=== PATIENT | female | born 1960 | race Caucasian/White ===

== ENCOUNTER 2017-07-08 23:05 | Emergency (ER) | payer OTHER ==
[2017-07-08] MEDS ORDERED: HYDROCODONE/APAP 7.5/325 MG TAB ONE (23:45)
[2017-07-09 00:03] LABS: Absolute Lymphocytes (CBC) 3.7 K/uL (0.7-4.9); Absolute Monocytes 0.5 K/uL (0.1-1.3); Absolute Neutrophil 5.2 K/uL (1.8-8.0); Eosinophils % 1.3 % (0-4.4); Hematocrit 44.8 % (36.0-45.0); Lymphocytes % 38.7 % (15.3-44.8); MCH 29.6 pg (27.0-35.0); MCV 89.7 fL (80-100); MPV 8.8 fL (7.6-11.3)
[2017-07-09 00:08] LABS: Protime INR 0.98
--- NOTE | 2017-07-09 00:15 | ER ---
Nurse's Notes [facility] Name: Abida Garza Age: 56 yrs Sex: Female : 1960 Arrival Date: 07/08/2017 Time: 23:08 Bed 5 Private MD: Diagnosis: Epistaxis Presentation: 07/08 23:17 Presenting complaint: Patient states: "Few hours ago about 4 I had a nose bleed. I ao called the nurse home line and they directed me how to stop the bleed. I lost a lot of blood and now I feel weak and dizzy.". Transition of care: patient was not received from another setting of care. No acute neurological deficit is noted. Pre-hospital glucose is not applicable to this patient. Onset of symptoms was July 08, 2017 at 19:00. Initial Sepsis Screen: Does the patient meet any 2 criteria? No. Patient's initial sepsis screen is negative. Does the patient have a suspected source of infection? No. Patient's initial sepsis screen is negative. Care prior to arrival: None. 23:17 Method Of Arrival: Ambulatory ao 23:17 Acuity: BALDO 3 ao Triage Assessment: 23:22 The onset of the patients symptoms was July 08, 2017 at 19:00. General: Appears in no ao apparent distress. comfortable, Behavior is calm, cooperative, appropriate for age. Pain: Denies pain. Neuro: Reports dizziness, weakness. EMERGENCY CARE TECH: 23:20 LMP N/A - Post-menopause ao Stroke Activation: Physician: Stroke Attending; Name: ; Notified At: ; Arrived At: Physician: Chief Stroke Resident; Name: ; Notified At: ; Arrived At: Physician: Stroke Resident; Name: ; Notified At: ; Arrived At: Physician: ED Attending; Name: ; Notified At: ; Arrived At: Physician: ED Resident; Name: ; Notified At: ; Arrived At: 23:17 No alert activated ao Historical: - Allergies: 23:22 Levaquin; ao 23:22 PENICILLINS; ao - Home Meds: 23:22 Cymbalta 60 mg Oral cpDR 2 caps once daily [Active]; gabapentin 600 mg Oral tab 1 tab ao every 6 hours [Active]; hydromorphone 4 mg Oral tab 1 tab three times a day [Active]; ProAir HFA inhalation [Active]; tizanidine 4 mg Oral tab 1 tab twice a day [Active]; Symbicort inhalation [Active]; - PMHx: 23:22 Asthma; chronic back pain; COPD; Depression; Sleep Apnea; ao - PSHx: 23:22 None; ao - Immunization history:: Adult Immunizations up to date. - Social history:: Smoking status: Patient/guardian denies using tobacco, Patient/guardian denies using alcohol, street drugs, Patient/guardian denies using alcohol, street drugs. - Family history:: not pertinent. Screenin:30 Abuse screen: Denies threats or abuse. Nutritional screening: No deficits noted. tl2 Tuberculosis screening: No symptoms or risk factors identified. Fall Risk None identified. Assessment: 23:30 General: Appears in no apparent distress. comfortable, Behavior is calm, cooperative, tl2 appropriate for age. Pain: Denies pain. Neuro: Level of Consciousness is awake, alert, obeys commands, Oriented to person, place, time, situation. Neuro: Reports headache. Cardiovascular: Denies chest pain. Respiratory: Airway is patent Respiratory effort is even, unlabored, Respiratory pattern is regular, symmetrical. GI: No signs and/or symptoms were reported involving the gastrointestinal system. : No signs and/or symptoms were reported regarding the genitourinary system. EENT: Reports nosebleed, started at 1830 and lasted about 3 hours. Nosebleed stopped ANGLE BENDER but pt stated she thought she should come in anyway. Derm: Skin is pink, warm \\T\\ dry. 23:49 Reassessment: Patient appears in no apparent distress at this time. Patient and/or tl2 family updated on plan of care and expected duration. Pain level reassessed. Patient is alert, oriented x 3, equal unlabored respirations, skin warm/dry/pink. pt requested pain medication for headache, notified, new orders see APR. 07/09 00:27 Reassessment: Patient appears in no apparent distress at this time. Patient and/or tl2 family updated on plan of care and expected duration. Pain level reassessed. Patient is alert, oriented x 3, equal unlabored respirations, skin warm/dry/pink. Pt verbalized understanding of discharge instructions, need for follow up and prescription usage Patient states feeling better. Vital Signs: 07/08 23:20 BP 156 / 85; Pulse 74; Resp 14; Temp 98.0(O); Pulse Ox 97% on R/A; Weight 102.06 kg ao (R); Height 5 ft. 4 in. (162.56 cm) (R); Pain 5/10; 07/09 00:27 BP 158 / 92; Pulse 73; Resp 18; Pulse Ox 97% on R/A; tl2 07/08 23:20 Body Mass Index 38.62 (102.06 kg, 162.56 cm) ao ED Course: 07/08 23:08 Patient arrived in ED. ds1 23:17 Juani Solis, RN is Primary Nurse. tl2 23:19 Chris Montes MD is Attending Physician. ma2 23:20 Triage completed. ao 23:20 Arm band placed on right wrist. Patient placed in an exam room, on a stretcher, on ao pulse oximetry, Patient notified of wait time. 23:30 Patient has correct armband on for positive identification. Bed in low position. Call tl2 light in reach. Side rails up X 1. 23:40 Inserted saline lock: 20 gauge in right antecubital area, using aseptic technique. tl2 Blood collected. 07/09 00:27 No provider procedures requiring assistance completed. tl2 00:28 IV discontinued, intact, bleeding controlled, No redness/swelling at site. Pressure tl2 dressing applied. Administered Medications: 07/08 23:50 Drug: [place] (7.5 mg-325 mg) 1 tabs Route: PO; tl2 07/09 00:29 Follow up: Response: No adverse reaction; Pain is decreased tl2 Outcome: 00:14 Discharge ordered by . ma2 00:28 Discharged to home ambulatory, with family. tl2 00:28 Condition: stable 00:28 Discharge instructions given to patient, Instructed on discharge instructions, follow up and referral plans. medication usage, Demonstrated understanding of instructions, follow-up care, medications, Prescriptions given X 1. 00:29 Patient left the ED. tl2 Signatures: Tonia Kulkarni ds1 Jasper Perales RN RN ao Juani Solis RN RN tl2 Chris Montes MD MD nmJessica
--- NOTE | 2017-07-09 00:15 | EDPHYS ---
Physician Documentation [facility] Name: Abida Garza Age: 56 yrs Sex: Female : 1960 Arrival Date: 07/08/2017 Time: 23:08 Bed 5 Private MD: ED Physician Chris Montes HPI: 07/08 23:25 This 56 yrs old Female presents to ER via Ambulatory with complaints of Nose ma2 Bleed, Weakness, Dizziness. 23:25 The patient presents with a nose bleed, that is apparently anterior. Onset: The ma2 symptoms/episode began/occurred gradually, 3 hour(s) ago. Associated signs and symptoms: The patient has no apparent associated signs or symptoms, Pertinent positives: bleeding, Pertinent negatives: chest pain, ear ache, lightheadedness, rhinorrhea, shortness of breath. Severity of symptoms: At their worst the symptoms were mild in the emergency department the symptoms have resolved. The patient has experienced a previous episode, approximately 7 years ago. 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 - Social history:: Smoking status: Patient/guardian denies using tobacco, Patient/guardian denies using alcohol, street drugs, Patient/guardian denies using alcohol, street drugs. - Family history:: not pertinent. ROS: 23:25 All other systems are negative. ma2 07/09 00:15 ENT: Negative for injury, pain, and discharge. ma2 Exam: 07/08 23:25 Constitutional: This is a well developed, well nourished patient who is awake, alert, ma2 and in no acute distress. Head/Face: Normocephalic, atraumatic. Chest/axilla: Normal chest wall appearance and motion. Nontender with no deformity. No lesions are appreciated. Cardiovascular: Regular rate and rhythm with a normal S1 and S2. No gallops, murmurs, or rubs. Normal PMI, no JVD. No pulse deficits. Respiratory: Lungs have equal breath sounds bilaterally, clear to auscultation and percussion. No rales, rhonchi or wheezes noted. No increased work of breathing, no retractions or nasal flaring. Neuro: Awake and alert, GCS 15, oriented to person, place, time, and situation. Cranial nerves II-XII grossly intact. Motor strength 5/5 in all extremities. Sensory grossly intact. Cerebellar exam normal. Normal gait. Psych: Awake, alert, with orientation to person, place and time. Behavior, mood, and affect are within normal limits. Vital Signs: 23:20 BP 156 / 85; Pulse 74; Resp 14; Temp 98.0(O); Pulse Ox 97% on R/A; Weight 102.06 kg ao (R); Height 5 ft. 4 in. (162.56 cm) (R); Pain 5/10; 07/09 00:27 BP 158 / 92; Pulse 73; Resp 18; Pulse Ox 97% on R/A; tl2 07/08 23:20 Body Mass Index 38.62 (102.06 kg, 162.56 cm) ao MDM: 07/08 23:20 Patient medically screened. ma2 23:25 Differential diagnosis: trauma, sinusitis, epistaxis r/t trauma, spontaneous epistaxis. ia2 07/09 00:14 Data reviewed: vital signs, nurses notes, EMS record, lab test result(s), EKG, ma2 radiologic studies. Counseling: I had a detailed discussion with the patient and/or guardian regarding: the historical points, exam findings, and any diagnostic results supporting the discharge/admit diagnosis, the presence of at least one elevated blood pressure reading (>120/80) during this emergency department visit, the need for outpatient follow up. Response to treatment: the patient's symptoms have resolved after treatment. 07/08 23:21 Order name: PT-INR; Complete Time: 00:13 ma2 07/08 23:21 Order name: Ptt, Activated; Complete Time: 00:13 ma2 07/08 23:21 Order name: CBC with Diff; Complete Time: 00: ma2 Administered Medications: 07/08 23:50 Drug: [place] (7.5 mg-325 mg) 1 tabs Route: PO; tl2 07/09 00:29 Follow up: Response: No adverse reaction; Pain is decreased tl2 Disposition: 07/09/17 00:14 Discharged to Home. Impression: Epistaxis. - Condition is Stable. - Discharge Instructions: Nosebleed, [id number]. - Prescriptions for Tylenol- Codeine #3 300-30 mg Oral Tablet - take 2 tablet by ORAL route every 6 hours As needed; 30 tablet. - Medication Reconciliation Form, Thank You Letter, Antibiotic Education, Prescription Opioid Use form. - Follow up: Private Physician; When: Tomorrow; Reason: If symptoms return. - Problem is new. - Symptoms are resolved. Signatures: Dispatcher [employer] EDOK Jasper Perales RN RN ao Knox, Taylor, RN RN tl2 Chris Montes MD MD ma2 Corrections: (The following items were deleted from the chart) 00:29 00:14 07/09/2017 00:14 Discharged to Home. Impression: Epistaxis. Condition is Stable. tl2 Forms are Medication Reconciliation Form, Thank You Letter, Antibiotic Education, Prescription Opioid Use. Follow up: Private Physician; When: Tomorrow; Reason: If symptoms return. Problem is new. Symptoms are resolved. ma2
[2017-07-09 00:43] VITALS: TEMP 98; O2SAT 97
[2017-07-09 00:44] VITALS: BP 158/92
== END 2017-07-09 00:29 | disposition home or self-care (01) ==
LOC: ER 23:05
DX: R04.0 Epistaxis (principal); J44.9 Chronic obstructive pulmonary disease, unspecified; F32.9 Major depressive disorder, single episode, unspecified; Z88.0 Allergy status to penicillin; Z88.1 Allergy status to other antibiotic agents
CPT/HCPCS: 36415; 85025; 85610; 85730; 99284

== ENCOUNTER 2017-09-19 19:18 | Emergency (ER) | payer OTHER ==
[2017-09-19] MEDS ORDERED: MEPERIDINE HCL 50 MG/ML AMP ONE (19:41)
[2017-09-19] MEDS ORDERED: MEPERIDINE HCL 25 MG/0.5 ML ONE (19:41)
[2017-09-19] MEDS ORDERED: ONDANSETRON 4 MG/2 ML VIAL ONE (19:41)
--- NOTE | 2017-09-19 20:20 | RAD REPORT ---
EXAM DESCRIPTION: CT - Spine Lumbar Wo Con - 09/19/2017 8:00 pm CLINICAL HISTORY: Back pain radiating to the left lower extremity COMPARISON: None. TECHNIQUE: Thin section axial imaging of the lumbar spine was performed. Sagittal and coronal recon struction images were generated and reviewed. All CT scans are performed using dose optimization technique as appropriate and may include automated exposure control or mA/KV adjustment according to patient size. FINDINGS: Lumbar bodies are normal in height. No compression fracture present and no lytic, scleroti c or expansile destructive process. Approximately 15% wedge compression of the T12 body is present wi thout evidence for an acute fracture line. Acute compression fracture is doubtful. There is [address] retrolisthesis of L2 relative to L3. T12-L1, L1-2 and L2-3 significant disc space narrowing with degenerative gas in the disc space. No paraspinal mass. Central canal detail is significantly limited. Left central canal and foraminal disc bulge is evident on the left at T12-L1. Mild broad-based bulging of disc material is present at L1-2 and in the left central canal at L2-3. Mild circumferential bulge of disc material is present at L3-4 facet degenerat escobar changes are present throughout the lumbar spine. Significant central spinal stenosis is not ident ified. Significant multilevel facet joint degenerative change seen. IMPRESSION: No fracture or acute finding of the lumbar spine. Slight wedging of the T12 body is susp ected to be chronic. Extensive degenerative disc disease T12-L1, L1-2 and L2-3. Disc bulge changes are present. No significant degree of central spinal stenosis or critical foramina l encroachment. CT imaging is inherently limited. Disc and central canal findings can be further assessed with MR debra ging as warranted.
--- NOTE | 2017-09-19 21:15 | EDPHYS ---
Physician Documentation [facility] Name: Abida Garza Age: 56 yrs Sex: Female : 1960 Arrival Date: 09/19/2017 Time: 19:22 Bed 12 Private MD: Christopher Robbins T ED Physician Stone Wilkinson HPI: 09/19 19:36 This 56 yrs old Female presents to ER via Ambulatory with complaints of Back pkl Pain, Leg Pain. 19:36 The patient presents with pain that is acute. The symptoms are located in the low back. pkl Onset: The symptoms/episode began/occurred 6 day(s) ago. The pain radiates to the left leg. 19:38 Associated signs and symptoms: The patient has no apparent associated signs or pkl symptoms. Patient has H/O back pain. Has stimulator in back. 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 - Social history:: Smoking status: Patient/guardian denies using tobacco. - Ebola Screening: : No symptoms or risks identified at this time. ROS: 19:40 Eyes: Negative for injury, pain, redness, and discharge, ENT: Negative for injury, pkl pain, and discharge, Neck: Negative for injury, pain, and swelling, Cardiovascular: Negative for chest pain, palpitations, and edema, Respiratory: Negative for shortness of breath, cough, wheezing, and pleuritic chest pain, Abdomen/GI: Negative for abdominal pain, nausea, vomiting, diarrhea, and constipation. 19:40 Back: Positive for pain at rest, of the lower back. 19:40 : Negative for urinary symptoms. 19:40 MS/extremity: Negative for acute changes. 19:40 Skin: Negative for rash. 19:40 Neuro: Negative for altered mental status. Exam: 19:40 Head/Face: Normocephalic, atraumatic. Eyes: Pupils equal round and reactive to light, pkl extra-ocular motions intact. Lids and lashes normal. Conjunctiva and sclera are non-icteric and not injected. Cornea within normal limits. Periorbital areas with no swelling, redness, or edema. ENT: Nares patent. No nasal discharge, no septal abnormalities noted. Tympanic membranes are normal and external auditory canals are clear. Oropharynx with no redness, swelling, or masses, exudates, or evidence of obstruction, uvula midline. Mucous membranes moist. Neck: Trachea midline, no thyromegaly or masses palpated, and no cervical lymphadenopathy. Supple, full range of motion without nuchal rigidity, or vertebral point tenderness. No Meningismus. Chest/axilla: Normal chest wall appearance and motion. Nontender with no deformity. No lesions are appreciated. Cardiovascular: Regular rate and rhythm with a normal S1 and S2. No gallops, murmurs, or rubs. Normal PMI, no JVD. No pulse deficits. Respiratory: Lungs have equal breath sounds bilaterally, clear to auscultation and percussion. No rales, rhonchi or wheezes noted. No increased work of breathing, no retractions or nasal flaring. Abdomen/GI: Soft, non-tender, with normal bowel sounds. No distension or tympany. No guarding or rebound. No evidence of tenderness throughout. 19:40 Back: pain, that is moderate, of the lower back, Straight leg raises: left lower extremity illicits pain, at 30 degrees. 19:40 : Exam negative for acute changes. 19:40 Musculoskeletal/extremity: Exam is negative for acute changes. 19:40 Skin: Exam negative for rash. 19:40 Neuro: Orientation: is normal, Mentation: is normal, Cranial nerves: grossly normal, Motor: is normal. Vital Signs: 19:26 BP 140 / 69; Pulse 81; Resp 18; Temp 98.5(O); Pulse Ox 95% on R/A; Weight 99.79 kg (R); ak1 Height 5 ft. 4 in. (162.56 cm) (R); Pain 10/10; 21:20 BP 137 / 69; Pulse 64; Resp 18; Pulse Ox 100% on R/A; mb3 19:26 Body Mass Index 37.76 (99.79 kg, 162.56 cm) ak1 MDM: 19:29 Patient medically screened. pkl 21:14 Data reviewed: vital signs, nurses notes, radiologic studies, CT scan. pkl 09/19 19:35 Order name: CT Lumbar Spine Wo Con; Complete Time: 21:11 pkl Administered Medications: 19:38 CANCELLED (Patient Refused): Zofran 4 mg IVP once; over 2 minutes pkl 19:45 Drug: Demerol 75 mg Route: IM; Site: left gluteus; mb3 21:06 Follow up: Response: No adverse reaction mb3 19:45 Drug: Zofran 4 mg Route: IM; Site: right gluteus; mb3 21:06 Follow up: Response: No adverse reaction mb3 Disposition: 09/19/17 21:15 Discharged to Home. Impression: Acute back pain. Exrensive degenerative arthritis.. - Condition is Stable. - Prescriptions for Cyclobenzaprine 10 mg Oral Tablet - take 1 tablet by ORAL route 2 times per day As needed; 30 tablet. Diclofenac Sodium 75 mg Oral Tablet Sustained Release - take 1 tablet by ORAL route 2 times per day; 30 tablet. - Medication Reconciliation Form, Thank You Letter, Antibiotic Education, Prescription Opioid Use form. - Follow up: Private Physician; When: 1 - 2 days; Reason: Re-evaluation by your physician. - Problem is new. - Symptoms have improved. Signatures: Dispatcher [employer] EDMS Stone Wilkinson MD MD l Jadyn Hernandez RN RN ak1 Hemal Dhaliwal RN RN mb3 Corrections: (The following items were deleted from the chart) 19:38 19:34 Zofran 4 mg IVP once; over 2 minutes ordered. pk pk 21:28 21:15 09/19/2017 21:15 Discharged to Home. Impression: Acute back pain. Exrensive mb3 degenerative arthritis.. Condition is Stable. Forms are Medication Reconciliation Form, Thank You Letter, Antibiotic Education, Prescription Opioid Use. Follow up: Private Physician; When: 1 - 2 days; Reason: Re-evaluation by your physician. Problem is new. Symptoms have improved. pkl
--- NOTE | 2017-09-19 21:15 | ER ---
Nurse's Notes [facility] Name: Abida Garza Age: 56 yrs Sex: Female : 1960 Arrival Date: 09/19/2017 Time: 19:22 Bed 12 Private MD: Christopher Robbins T Diagnosis: Acute back pain. Exrensive degenerative arthritis. 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 Transition of care: patient was not received from another setting of care. Onset of symptoms is unknown. Risk Assessment: Do you want to hurt yourself or someone else? Patient reports no desire to harm self or others. Care prior to arrival: None. 19:27 Acuity: BALDO 4 ak1 19:27 Method Of Arrival: Ambulatory ak1 19:50 Initial Sepsis Screen: Does the patient meet any 2 criteria? No. Patient's initial mb3 sepsis screen is negative. Does the patient have a suspected source of infection? No. Patient's initial sepsis screen is negative. 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 - Social history:: Smoking status: Patient/guardian denies using tobacco. - Ebola Screening: : No symptoms or risks identified at this time. Screenin:50 Abuse screen: Denies threats or abuse. Nutritional screening: No deficits noted. mb3 Tuberculosis screening: No symptoms or risk factors identified. Fall Risk None identified. Assessment: 19:47 General: Appears in no apparent distress. comfortable, Behavior is calm, cooperative, mb3 appropriate for age. Pain: Complains of pain in lumbar area, left low back and right low back. Pain: Pain radiates to right leg and left leg. Neuro: No deficits noted. Level of Consciousness is awake, alert, obeys commands, Oriented to person, place, time, situation, Appropriate for age. Cardiovascular: No deficits noted. Respiratory: No deficits noted. GI: No deficits noted. : No deficits noted. Musculoskeletal: Capillary refill < 3 seconds, Range of motion: limited in left hip and right hip. Vital Signs: 19:26 BP 140 / 69; Pulse 81; Resp 18; Temp 98.5(O); Pulse Ox 95% on R/A; Weight 99.79 kg (R); ak1 Height 5 ft. 4 in. (162.56 cm) (R); Pain 10/10; 21:20 BP 137 / 69; Pulse 64; Resp 18; Pulse Ox 100% on R/A; mb3 19:26 Body Mass Index 37.76 (99.79 kg, 162.56 cm) ak1 ED Course: 19:22 Patient arrived in ED. es 19:22 Christopher Robbins MD is Private Physician. es 19:26 Arm band placed on Patient placed in an exam room, Patient notified of wait time. ak1 19:28 Triage completed. ak1 19:29 Stone Wilkinson MD is Attending Physician. pkl 19:46 Hemal Dhaliwal, TITA is Primary Nurse. mb3 19:[address] vm2 19:50 No provider procedures requiring assistance completed. Patient did not have IV access mb3 during this emergency room visit. 19:51 Patient has correct armband on for positive identification. mb3 19:59 CT completed. Patient tolerated procedure well. Patient moved back from CT. vm2 20:00 CT Lumbar Spine Wo Con In Process Unspecified. EDMS Administered Medications: 19:38 CANCELLED (Patient Refused): Zofran 4 mg IVP once; over 2 minutes pkl 19:45 Drug: Demerol 75 mg Route: IM; Site: left gluteus; mb3 21:06 Follow up: Response: No adverse reaction mb3 19:45 Drug: Zofran 4 mg Route: IM; Site: right gluteus; mb3 21:06 Follow up: Response: No adverse reaction mb3 Outcome: 21:15 Discharge ordered by . kiley 21:23 Discharged to home ambulatory, with family. mb3 21:23 Condition: stable 21:23 Discharge instructions given to patient, family, Instructed on discharge instructions, follow up and referral plans. medication usage, Demonstrated understanding of instructions, follow-up care, medications, Prescriptions given X 2. 21:28 Patient left the ED. mb3 Signatures: Dispatcher [employer] Stone Hinds MD MD pkl Salyer, Edna es Krenek, Amber, RN RN [email or web address] Dipti Reynaga 2 Hemal Dhaliwal, RN RN mb3
[2017-09-19 21:39] VITALS: TEMP 98.5
[2017-09-19 21:40] VITALS: BP 137/69; O2SAT 100
== END 2017-09-19 21:28 | disposition home or self-care (01) ==
LOC: ER 19:18
DX: M54.89 Other dorsalgia (principal); M19.90 Unspecified osteoarthritis, unspecified site; J44.9 Chronic obstructive pulmonary disease, unspecified; J45.909 Unspecified asthma, uncomplicated; Z88.3 Allergy status to other anti-infective agents; Z88.0 Allergy status to penicillin
CPT/HCPCS: 72131; 96372; 99284; J2175 ×2; J2405

== ENCOUNTER 2018-01-14 10:24 | Emergency (ER) | payer OTHER ==
--- NOTE | 2018-01-14 11:17 | RAD REPORT ---
EXAM DESCRIPTION: CT - Head Brain Wo Cont - 01/14/2018 11:08 am CLINICAL HISTORY: HEADACHE Hypertension COMPARISON: No comparisons TECHNIQUE: All CT scans are performed using dose optimization technique as appropriate and may inclu de automated exposure control or mA/KV adjustment according to patient size. FINDINGS: No intracranial hemorrhage, hydrocephalus or extra-axial fluid collection.No areas of brai n edema or evidence of midline shift. The paranasal sinuses and mastoids are clear. The calvarium is intact. IMPRESSION: No acute intracranial abnormality.
[2018-01-14 11:40] LABS: Absolute Lymphocytes (CBC) 2.3 K/uL (0.7-4.9); Absolute Monocytes 0.4 K/uL (0.1-1.3); Absolute Neutrophil 3.2 K/uL (1.8-8.0); Basophils % 0.3 % (0-1.3); Hematocrit 44.9 % (36.0-45.0); Lymphocytes % 39.3 % (15.3-44.8); MCH 30.1 pg (27.0-35.0); MCV 91.8 fL (80-100); MPV 9.3 fL (7.6-11.3); Monocytes % 6.1 % (3.3-12.3); RBC Red Blood Cell Count 4.88 M/uL (3.86-4.86)
[2018-01-14] MEDS ORDERED: IBUPROFEN 400 MG TAB ONE (11:48)
[2018-01-14 11:58] LABS: BUN Blood Urea Nitrogen 13 mg/dL (7-18); Bicarbonate 29 mmol/L (21-32); Glucose Level 116 mg/dL (74-106); Magnesium 2.3 mg/dL (1.8-2.4); NT PRO-BNP 31 pg/mL (<125); Potassium 3.7 mmol/L (3.5-5.1); Sodium Level 141 mmol/L (136-145); Troponin (Emerg Dept Use Only) < 0.02 ng/mL (0.0-0.045)
--- NOTE | 2018-01-14 12:16 | ER ---
Nurse's Notes [facility] Name: Abida Garza Age: 57 yrs Sex: Female : 1960 Arrival Date: 01/14/2018 Time: 10:27 Bed 20 Private MD: Christopher Robbins T Diagnosis: Essential (primary) hypertension Presentation: 01/14 10:30 Presenting complaint: Patient states: I have been having headaches every day and I went la1 to the Dr and my BP was 150s/120s. Im not on any meds for my bp. Transition of care: patient was not received from another setting of care. Onset of symptoms was January 14, 2018. Risk Assessment: Do you want to hurt yourself or someone else? Patient reports no desire to harm self or others. Initial Sepsis Screen: Does the patient meet any 2 criteria? No. Patient's initial sepsis screen is negative. Does the patient have a suspected source of infection? No. Patient's initial sepsis screen is negative. Care prior to arrival: None. 10:30 Method Of Arrival: Ambulatory la1 10:30 Acuity: BALDO 3 la1 Historical: - Allergies: 10:30 Levaquin; la1 10:30 PENICILLINS; la1 - PMHx: 10:30 Asthma; chronic back pain; COPD; Depression; Sleep Apnea; la1 - Immunization history:: Adult Immunizations up to date. - Social history:: Smoking status: Patient/guardian denies using tobacco. - Ebola Screening: : No symptoms or risks identified at this time. Screenin:25 Abuse screen: Denies threats or abuse. Nutritional screening: No deficits noted. em Tuberculosis screening: No symptoms or risk factors identified. Fall Risk None identified. Assessment: 11:14 General: Appears in no apparent distress. comfortable, Behavior is calm, cooperative. em Pain: Complains of pain in chest and head Pain currently is 8 out of 10 on a pain scale. Quality of pain is described as pressure, Pain began 1 day ago. Neuro: Level of Consciousness is awake, alert, obeys commands, Oriented to person, place, time, situation, Moves all extremities. Gait is steady, Speech is normal, Facial symmetry appears normal, Reports dizziness, headache. Cardiovascular: Reports chest pain, diaphoresis, Heart tones S1 S2 present Capillary refill < 3 seconds Patient's skin is warm and dry. Respiratory: Airway is patent Respiratory effort is even, unlabored, Respiratory pattern is regular, symmetrical, Breath sounds are clear bilaterally. GI: No signs and/or symptoms were reported involving the gastrointestinal system. : No signs and/or symptoms were reported regarding the genitourinary system. EENT: No signs and/or symptoms were reported regarding the EENT system. Derm: Skin is intact, Skin is pink, warm \\T\\ dry. Musculoskeletal: Capillary refill < 3 seconds, Range of motion: intact in all extremities. 11:20 General: The previous assessment is accurate, call light remains within reach. . ss 11:38 Reassessment: Patient appears in no apparent distress at this time. Patient and/or em family updated on plan of care and expected duration. Pain level reassessed. Patient is alert, oriented x 3, equal unlabored respirations, skin warm/dry/pink. reports headache, states, "I have chronic migraines, I have not followed up with my doctor" provider notified, new medication orders received. 12:34 Reassessment: Patient appears in no apparent distress at this time. Patient and/or em family updated on plan of care and expected duration. Pain level reassessed. Patient is alert, oriented x 3, equal unlabored respirations, skin warm/dry/pink. headache improved, rates pain 6/10, provider notified. Vital Signs: 10:31 BP 145 / 76; Pulse 86; Resp 16; Temp 97.3; Pulse Ox 98% on R/A; Weight 89.36 kg; Height la1 5 ft. 4 in. (162.56 cm); 11:31 BP 132 / 87; Pulse 68; Resp 14; Pulse Ox 99% on R/A; Pain 8/10; em 12:11 BP 119 / 60; Pulse 73; Resp 19; Pulse Ox 97% on R/A; em 12:35 BP 128 / 65; Pulse 80; Resp 18; Pulse Ox 95% on R/A; Pain 6/10; em 10:31 Body Mass Index 33.81 (89.36 kg, 162.56 cm) la1 ED Course: 10:27 Patient arrived in ED. mr 10:27 Christopher Robbins MD is Private Physician. mr 10:31 Triage completed. la1 10:31 Arm band placed on left wrist. la1 10:35 Drake Powers LVN is Primary Nurse. em 10:36 Aarti López FNP-C is [facility]. kb 10:36 Jeremy Mendez MD is Attending Physician. kb 10:[address] via wheelchair. cw1 11:06 CT completed. Patient moved back from CT. cw1 11:07 CT Head Brain wo Cont In Process Unspecified. EDMS 11:18 EKG done, by ED staff, reviewed by Aarti CHAIDEZ. 3 11:24 Initial lab(s) drawn, by me, sent to lab. Inserted saline lock: 20 gauge in right em antecubital area, using aseptic technique. Blood collected. 11:25 Patient has correct armband on for positive identification. Bed in low position. Call em light in reach. Adult w/ patient. 12:16 Christopher Robbins MD is Referral Physician. kb 12:36 No provider procedures requiring assistance completed. IV discontinued, intact, em bleeding controlled, No redness/swelling at site. Pressure dressing applied. Administered Medications: 11:44 Drug: Ibuprofen 800 mg Route: PO; em 12:37 Follow up: Response: No adverse reaction; Pain is decreased em Outcome: 12:16 Discharge ordered by MD. kb 12:36 Discharged to home ambulatory. em 12:36 Condition: good 12:36 Discharge instructions given to patient, Instructed on discharge instructions, follow up and referral plans. Demonstrated understanding of instructions, follow-up care. 12:37 Patient left the ED. em Signatures: Dispatcher [employer] EDNJ Aarti López FNP-C FNP-Marichuy Bethany Jones mr Drake Powers LVN [place] em Ashly Ba, Analisa Yanes RN 1 Faheem Christopher RN RN [facility] Ivette Flowernna formerly [facility]
--- NOTE | 2018-01-14 12:16 | EDPHYS ---
Physician Documentation [facility] Name: Abida Garza Age: 57 yrs Sex: Female : 1960 Arrival Date: 01/14/2018 Time: 10:27 Bed 20 Private MD: Christopher Robbins T ED Physician Jeremy Mendez HPI: 01/14 10:46 This 57 yrs old Female presents to ER via Ambulatory with complaints of High kb Blood Pressure. 10:46 The patient has elevated blood pressure and discovered this at home, with a home kb device. Onset: The symptoms/episode began/occurred 2 week(s) ago. Associated signs and symptoms: Pertinent positives: headache, nausea, Pertinent negatives: chest pain, dizziness, dyspnea, lightheadedness, visual changes, vomiting, weakness. Severity of symptoms: At its worst the blood pressure was 160 mm Hg, in the emergency department the blood pressure is improved, 145 mm Hg. The patient has not experienced similar symptoms in the past. The patient has been recently seen by a physician:. Pt reports she has had a headache for 2 weeks. Went to pain management on Monday and her bp was 150/120. Was told to keep an eye on it. Today bp was 147/120 so she came to get checked. Reports headache and nausea. Denies chest pain. . Historical: - Allergies: 10:30 Levaquin; la1 10:30 PENICILLINS; la1 - PMHx: 10:30 Asthma; chronic back pain; COPD; Depression; Sleep Apnea; la1 - Immunization history:: Adult Immunizations up to date. - Social history:: Smoking status: Patient/guardian denies using tobacco. - Ebola Screening: : No symptoms or risks identified at this time. ROS: 10:46 Constitutional: Negative for fever, chills, and weight loss, Eyes: Negative for injury, kb pain, redness, and discharge, ENT: Negative for injury, pain, and discharge, Neck: Negative for injury, pain, and swelling, Cardiovascular: Negative for chest pain, palpitations, and edema, Respiratory: Negative for shortness of breath, cough, wheezing, and pleuritic chest pain, Abdomen/GI: Negative for abdominal pain, vomiting, diarrhea, and constipation. +nausea Back: Negative for injury and pain, : Negative for injury, bleeding, discharge, and swelling, MS/Extremity: Negative for injury and deformity, Skin: Negative for injury, rash, and discoloration. 10:46 Neuro: Positive for headache. Exam: 10:46 Constitutional: This is a well developed, well nourished patient who is awake, alert, kb and in no acute distress. Head/Face: Normocephalic, atraumatic. Eyes: Pupils equal round and reactive to light, extra-ocular motions intact. Lids and lashes normal. Conjunctiva and sclera are non-icteric and not injected. Cornea within normal limits. Periorbital areas with no swelling, redness, or edema. ENT: Nares patent. No nasal discharge, no septal abnormalities noted. Tympanic membranes are normal and external auditory canals are clear. Oropharynx with no redness, swelling, or masses, exudates, or evidence of obstruction, uvula midline. Mucous membranes moist. Neck: Trachea midline, no thyromegaly or masses palpated, and no cervical lymphadenopathy. Supple, full range of motion without nuchal rigidity, or vertebral point tenderness. No Meningismus. Chest/axilla: Normal chest wall appearance and motion. Nontender with no deformity. No lesions are appreciated. Cardiovascular: Regular rate and rhythm with a normal S1 and S2. No gallops, murmurs, or rubs. Normal PMI, no JVD. No pulse deficits. Respiratory: Lungs have equal breath sounds bilaterally, clear to auscultation and percussion. No rales, rhonchi or wheezes noted. No increased work of breathing, no retractions or nasal flaring. Abdomen/GI: Soft, non-tender, with normal bowel sounds. No distension or tympany. No guarding or rebound. No evidence of tenderness throughout. Skin: Warm, dry with normal turgor. Normal color with no rashes, no lesions, and no evidence of cellulitis. MS/ Extremity: Pulses equal, no cyanosis. Neurovascular intact. Full, normal range of motion. Neuro: Awake and alert, GCS 15, oriented to person, place, time, and situation. Cranial nerves II-XII grossly intact. Motor strength 5/5 in all extremities. Sensory grossly intact. Cerebellar exam normal. Normal gait. Vital Signs: 10:31 BP 145 / 76; Pulse 86; Resp 16; Temp 97.3; Pulse Ox 98% on R/A; Weight 89.36 kg; Height la1 5 ft. 4 in. (162.56 cm); 11:31 BP 132 / 87; Pulse 68; Resp 14; Pulse Ox 99% on R/A; Pain 8/10; em 12:11 BP 119 / 60; Pulse 73; Resp 19; Pulse Ox 97% on R/A; em 12:35 BP 128 / 65; Pulse 80; Resp 18; Pulse Ox 95% on R/A; Pain 6/10; em 10:31 Body Mass Index 33.81 (89.36 kg, 162.56 cm) la1 MDM: 10:36 Patient medically screened. kb 10:46 Data reviewed: vital signs, nurses notes. Data interpreted: Pulse oximetry: on room air kb is 98 %. Interpretation: normal. 12:15 Counseling: I had a detailed discussion with the patient and/or guardian regarding: the kb historical points, exam findings, and any diagnostic results supporting the discharge/admit diagnosis, lab results, radiology results, the need for outpatient follow up, a family practitioner, to return to the emergency department if symptoms worsen or persist or if there are any questions or concerns that arise at home. 01/14 10:45 Order name: Basic Metabolic Panel; Complete Time: 12:15 kb 01/14 10:45 Order name: CBC with Diff; Complete Time: 11:48 kb 01/14 10:45 Order name: Magnesium; Complete Time: 12:15 kb 01/14 10:45 Order name: NT PRO-BNP; Complete Time: 12:15 kb 01/14 10:45 Order name: Troponin (emerg Dept Use Only); Complete Time: 12:15 kb 01/14 10:45 Order name: CT Head Brain wo Cont; Complete Time: 11:21 kb 01/14 10:45 Order name: EKG; Complete Time: 10:46 kb 01/14 10:45 Order name: EKG - Nurse/Tech; Complete Time: 11:19 kb 01/14 10:45 Order name: IV Saline Lock; Complete Time: 11:24 kb 01/14 10:45 Order name: Labs collected and sent; Complete Time: 11:24 kb 01/14 10:45 Order name: O2 Per Protocol; Complete Time: 11:24 kb 01/14 10:45 Order name: O2 Sat Monitoring; Complete Time: 11:24 kb Administered Medications: 11:44 Drug: Ibuprofen 800 mg Route: PO; em 12:37 Follow up: Response: No adverse reaction; Pain is decreased em Disposition: 01/15 11:11 Co-signature as Attending Physician, Jeremy Mendez MD. Disposition: 01/14/18 12:16 Discharged to Home. Impression: Essential (primary) hypertension. - Condition is Stable. - Discharge Instructions: Hypertension, [id number], Managing Your Hypertension. - Medication Reconciliation Form, Thank You Letter, Antibiotic Education, Prescription Opioid Use form. - Follow up: Emergency Department; When: As needed; Reason: Worsening of condition. Follow up: Christopher Robbins MD; When: 2 - 3 days; Reason: Recheck today's complaints, Continuance of care, Re-evaluation by your physician. Signatures: Dispatcher [employer] EDMS Aarti López, SENIOR PROGRAMMER-C SENIOR PROGRAMMER-Ckb Drake Powers, EASEMENT WORKER EASEMENT WORKER em Faheem Christopher RN RN la1 Jeremy Mendez MD MD Corrections: (The following items were deleted from the chart) 01/14 10:48 10:46 Constitutional: Negative for fever, chills, and weight loss, Eyes: Negative for kb injury, pain, redness, and discharge, ENT: Negative for injury, pain, and discharge, Neck: Negative for injury, pain, and swelling, Cardiovascular: Negative for chest pain, palpitations, and edema, Respiratory: Negative for shortness of breath, cough, wheezing, and pleuritic chest pain, Abdomen/GI: Negative for abdominal pain, nausea, vomiting, diarrhea, and constipation, Back: Negative for injury and pain, : Negative for injury, bleeding, discharge, and swelling, MS/Extremity: Negative for injury and deformity, Skin: Negative for injury, rash, and discoloration, kb 12:37 12:16 01/14/2018 12:16 Discharged to Home. Impression: Essential (primary) em hypertension. Condition is Stable. Forms are Medication Reconciliation Form, Thank You Letter, Antibiotic Education, Prescription Opioid Use. Follow up: Emergency Department; When: As needed; Reason: Worsening of condition. Follow up: Christopher Robbins; When: 2 - 3 days; Reason: Recheck today's complaints, Continuance of care, Re-evaluation by your physician. kb
[2018-01-14 13:11] VITALS: TEMP 97.3
[2018-01-14 13:15] VITALS: BP 128/65; O2SAT 95
--- NOTE | 2018-01-14 20:20 | EKG ---
Test Date: 2018-01-14 Test Time: 11:11:42 Monument Erector: FARA MEASUREMENT RESULTS: Intervals: Rate: 73 KS: 196 QRSD: 88 QT: 420 QTc: 462 [place]: P: 78 KS: 196 QRS: 25 T: 75 INTERPRETIVE STATEMENTS: Normal sinus rhythm Nonspecific T wave abnormality Prolonged QT Abnormal ECG Compared to ECG 01/02/2016 05:20:23 T-wave abnormality now present Prolonged QT interval now present Sinus bradycardia no longer present First degree AV block no longer present Electronically Signed On 01-14-18 20:20:17 CLEARING HOUSE CLERK by Javier Celis
== END 2018-01-14 12:37 | disposition home or self-care (01) ==
LOC: ER 10:24
DX: I10 Essential (primary) hypertension (principal); R94.31 Abnormal electrocardiogram [ECG] [EKG]
CPT/HCPCS: 36415; 70450; 80048; 83735; 83880; 84484; 85025; 93005; 99284

== ENCOUNTER 2018-02-12 11:19 | Emergency (ER) | payer OTHER ==
[2018-02-12] MEDS ORDERED: HYDROCODONE/APAP 5/325 MG TAB ONE ×2 (12:49→13:53)
--- NOTE | 2018-02-12 12:59 | RAD REPORT ---
EXAM DESCRIPTION: Ribs Right - 02/12/2018 12:37 pm CLINICAL HISTORY: Right rib pain FINDINGS: No fracture is seen
--- NOTE | 2018-02-12 13:34 | EDPHYS ---
Physician Documentation [facility] Name: Abida Garza Age: 57 yrs Sex: Female : 1960 Arrival Date: 02/12/2018 Time: 11:23 Bed 27 Private MD: Christopher Robbins T ED Physician Bud Quijano HPI: 02/12 14:00 This 57 yrs old Female presents to ER via Ambulatory with complaints of Right pm1 lower Rib pain. 18:51 Onset: today. The pain does not radiate. Associated signs and symptoms: Pertinent pm1 negatives: abdominal pain, nausea, shortness of breath, vomiting. The chest pain is described as sharp. Duration: The patient or guardian reports a single episode, that is still ongoing. Modifying factors: the symptoms are aggravated by deep breath, palpation of area. Severity of pain: in the emergency department the pain is actually worse. The patient has not experienced similar symptoms in the past. Patient was leaning over into her washer and she felt a pop on her right lower rib while it was against the washing machine. No shortness of breath. Historical: - Allergies: 11:44 Levaquin; aa5 11:44 PENICILLINS; aa5 - PMHx: 11:44 Asthma; chronic back pain; COPD; Depression; Sleep Apnea; aa5 - Immunization history:: Flu vaccine status is unknown. - Social history:: Smoking status: Patient/guardian denies using tobacco. - Ebola Screening: : No symptoms or risks identified at this time. ROS: 18:51 Constitutional: Negative for fever, chills, and weight loss, Eyes: Negative for injury, pm1 pain, redness, and discharge, ENT: Negative for injury, pain, and discharge, Neck: Negative for injury, pain, and swelling, Cardiovascular: Negative for chest pain, palpitations, and edema, Respiratory: Negative for shortness of breath, cough, wheezing, and pleuritic chest pain, Abdomen/GI: Negative for abdominal pain, nausea, vomiting, diarrhea, and constipation, Back: Negative for injury and pain, : Negative for injury, bleeding, discharge, and swelling, MS/Extremity: Negative for injury and deformity, Skin: Negative for injury, rash, and discoloration, Neuro: Negative for headache, weakness, numbness, tingling, and seizure. Exam: 18:51 Constitutional: This is a well developed, well nourished patient who is awake, alert, pm1 and in no acute distress. Head/Face: Normocephalic, atraumatic. Eyes: Pupils equal round and reactive to light, extra-ocular motions intact. Lids and lashes normal. Conjunctiva and sclera are non-icteric and not injected. Cornea within normal limits. Periorbital areas with no swelling, redness, or edema. ENT: Nares patent. No nasal discharge, no septal abnormalities noted. Tympanic membranes are normal and external auditory canals are clear. Oropharynx with no redness, swelling, or masses, exudates, or evidence of obstruction, uvula midline. Mucous membranes moist. Neck: Trachea midline, no thyromegaly or masses palpated, and no cervical lymphadenopathy. Supple, full range of motion without nuchal rigidity, or vertebral point tenderness. No Meningismus. 18:51 Cardiovascular: Regular rate and rhythm with a normal S1 and S2. No gallops, murmurs, or rubs. Normal PMI, no JVD. No pulse deficits. Respiratory: Lungs have equal breath sounds bilaterally, clear to auscultation and percussion. No rales, rhonchi or wheezes noted. No increased work of breathing, no retractions or nasal flaring. Abdomen/GI: Soft, non-tender, with normal bowel sounds. No distension or tympany. No guarding or rebound. No evidence of tenderness throughout. Back: No spinal tenderness. No costovertebral tenderness. Full range of motion. Skin: Warm, dry with normal turgor. Normal color with no rashes, no lesions, and no evidence of cellulitis. MS/ Extremity: Pulses equal, no cyanosis. Neurovascular intact. Full, normal range of motion. 18:51 Chest/axilla: Inspection: normal, Palpation: tenderness, of the focal point right lower ribcage midclavicular, that totally reproduces the patient's complaints, Axilla: 18:51 Neuro: Orientation: is normal, Motor: is normal, moves all fours. Vital Signs: 11:44 BP 113 / 78; Pulse 90; Resp 16 S; Temp 98.9(TE); Pulse Ox 93% on R/A; Weight 89.36 kg aa5 (R); Height 5 ft. 4 in. (162.56 cm) (R); Pain 8/10; 13:48 BP 115 / 74; Pulse 87; Resp 16; Pulse Ox 98% on R/A; la1 11:44 Body Mass Index 33.81 (89.36 kg, 162.56 cm) aa5 MDM: 11:48 Patient medically screened. pm1 13:32 Data reviewed: vital signs. Counseling: I had a detailed discussion with the patient pm1 and/or guardian regarding: the historical points, exam findings, and any diagnostic results supporting the discharge/admit diagnosis, radiology results, the need for outpatient follow up, to return to the emergency department if symptoms worsen or persist or if there are any questions or concerns that arise at home. 02/12 11:53 Order name: Ribs Right XRAY; Complete Time: 13:00 pm1 Administered Medications: 12:45 Drug: [place] 5 mg-325 mg 1 tabs Route: PO; iw 13:48 Follow up: Response: No adverse reaction la1 13:48 Drug: [place] 5 mg-325 mg 1 tabs Route: PO; la1 13:48 Follow up: Response: Medication administered at discharge. la1 Disposition: 02/13 06:31 Co-signature as Attending Physician, Bud Quijano MD I agree with the assessment and wes plan of care. Disposition: 02/12/18 13:33 Discharged to Home. Impression: Strain of muscle and tendon of front wall of thorax. - Condition is Stable. - Discharge Instructions: Muscle Strain. - Prescriptions for Tylenol- Codeine #3 300-30 mg Oral Tablet - take 2 tablets by ORAL route every 6 hours As needed; 20 tablet. - Medication Reconciliation Form, Thank You Letter, Prescription Opioid Use form. - Follow up: Emergency Department; When: As needed; Reason: Worsening of condition. Follow up: Private Physician; When: 2 - 3 days; Reason: Recheck today's complaints, Continuance of care, Re-evaluation by your physician. - Problem is new. - Symptoms have improved. Signatures: Dispatcher [employer] Bud De La Cruz MD MD cha Williams, Irene RN TITA iw Magdalena Humphrey RN RN aa5 Faheem Christopher RN RN la1 Manolo Mccollum, HITESH PERSONAL PROPERTY APPRAISER pm1 Corrections: (The following items were deleted from the chart) 02/12 13:48 13:33 02/12/2018 13:33 Discharged to Home. Impression: Strain of muscle and tendon of la1 front wall of thorax. Condition is Stable. Forms are Medication Reconciliation Form, Thank You Letter, Antibiotic Education, Prescription Opioid Use. Follow up: Emergency Department; When: As needed; Reason: Worsening of condition. Follow up: Private Physician; When: 2 - 3 days; Reason: Recheck today's complaints, Continuance of care, Re-evaluation by your physician. Problem is new. Symptoms have improved. pm1
--- NOTE | 2018-02-12 13:34 | ER ---
Nurse's Notes [facility] Name: Abida Garza Age: 57 yrs Sex: Female : 1960 Arrival Date: 02/12/2018 Time: 11:23 Bed 27 Private MD: Christopher Robbins T Diagnosis: Strain of muscle and tendon of front wall of thorax Presentation: 02/12 11:42 Presenting complaint: Patient states: "I was cleaning the washing machine so it's deep aa5 and I was bending over and I felt something on my right side and I started hurting". Pt c/o pain to right lateral aspect of chest. Transition of care: patient was not received from another setting of care. Onset of symptoms was February 12, 2018 at 11:00. Risk Assessment: Do you want to hurt yourself or someone else? Patient reports no desire to harm self or others. Initial Sepsis Screen: Does the patient meet any 2 criteria? No. Patient's initial sepsis screen is negative. Does the patient have a suspected source of infection? No. Patient's initial sepsis screen is negative. Care prior to arrival: None. 11:42 Method Of Arrival: Ambulatory aa5 11:42 Acuity: BALDO 4 aa5 Historical: - Allergies: 11:44 Levaquin; aa5 11:44 PENICILLINS; aa5 - PMHx: 11:44 Asthma; chronic back pain; COPD; Depression; Sleep Apnea; aa5 - Immunization history:: Flu vaccine status is unknown. - Social history:: Smoking status: Patient/guardian denies using tobacco. - Ebola Screening: : No symptoms or risks identified at this time. Screenin:47 Abuse screen: Denies threats or abuse. Denies injuries from another. Nutritional iw screening: No deficits noted. Tuberculosis screening: No symptoms or risk factors identified. Fall Risk None identified. Assessment: 12:46 General: Appears in no apparent distress. Behavior is calm, cooperative. Pain: iw Complains of pain in right lateral anterior chest. Neuro: Level of Consciousness is awake, alert, obeys commands, Oriented to person, place, time, situation. Cardiovascular: Patient's skin is warm and dry. Respiratory: Respiratory effort is even, unlabored, Respiratory pattern is regular, symmetrical. GI: Abdomen is non-distended. Derm: Skin is intact, is healthy with good turgor. Musculoskeletal: Range of motion: intact in all extremities. 13:48 Reassessment: Patient appears in no apparent distress at this time. No changes from la1 previously documented assessment. Patient and/or family updated on plan of care and expected duration. Pain level reassessed. Patient is alert, oriented x 3, equal unlabored respirations, skin warm/dry/pink. Vital Signs: 11:44 BP 113 / 78; Pulse 90; Resp 16 S; Temp 98.9(TE); Pulse Ox 93% on R/A; Weight 89.36 kg aa5 (R); Height 5 ft. 4 in. (162.56 cm) (R); Pain 8/10; 13:48 BP 115 / 74; Pulse 87; Resp 16; Pulse Ox 98% on R/A; la1 11:44 Body Mass Index 33.81 (89.36 kg, 162.56 cm) aa5 ED Course: 11:23 Patient arrived in ED. mr 11:23 Christopher Robbins MD is Private Physician. mr 11:42 Arm band placed on. aa5 11:44 Triage completed. aa5 11:46 Manolo Mccollum NP is PHCP. pm1 11:46 Bud Quijano MD is Attending Physician. pm1 11:56 Ryanne Sullivan, TITA is Primary Nurse. iw 12:36 X-ray completed. Patient tolerated procedure well. Patient moved back from radiology. jb2 12:37 Ribs Right XRAY In Process Unspecified. EDMS 12:47 No provider procedures requiring assistance completed. Patient did not have IV access iw during this emergency room visit. 13:48 Call light in reach. la1 Administered Medications: 12:45 Drug: [place] 5 mg-325 mg 1 tabs Route: PO; iw 13:48 Follow up: Response: No adverse reaction la1 13:48 Drug: [place] 5 mg-325 mg 1 tabs Route: PO; la1 13:48 Follow up: Response: Medication administered at discharge. la1 Outcome: 13:33 Discharge ordered by . pm1 13:48 Discharged to home ambulatory. la1 13:48 Condition: stable 13:48 Discharge instructions given to patient, Instructed on discharge instructions, follow up and referral plans. medication usage, Demonstrated understanding of instructions, follow-up care, medications, Prescriptions given X 1. 13:48 Patient left the ED. la1 Signatures: Dispatcher [employer] EDMS Robert, Bethany mr Tomeka, Gurdeep jb2 Ryanne Sullivan, Magdalena Arora RN, RN RN aa5 Faheem Christopher RN RN la1 Manolo Mccollum, FIRE ADJUSTER FIRE ADJUSTER pm1
[2018-02-12 14:07] VITALS: TEMP 98.9
[2018-02-12 14:08] VITALS: BP 115/74; O2SAT 98
== END 2018-02-12 13:48 | disposition home or self-care (01) ==
LOC: ER 11:19
DX: S29.011A Strain of muscle and tendon of front wall of thorax, initial encounter (principal); Z88.1 Allergy status to other antibiotic agents; Z88.0 Allergy status to penicillin
CPT/HCPCS: 99283

== ENCOUNTER 2018-08-23 15:13 | Observation (INO) | payer OTHER ==
--- NOTE | 2018-08-23 16:01 | EKG ---
Test Date: 2018-08-23 Test Time: 15:46:08 Rag Collector: SUZIE MEASUREMENT RESULTS: Intervals: Rate: 71 IA: 184 QRSD: 84 QT: 416 QTc: 452 [place]: P: 82 IA: 184 QRS: 26 T: 65 INTERPRETIVE STATEMENTS: Normal sinus rhythm Normal ECG Compared to ECG 01/14/2018 11:11:42 T-wave abnormality no longer present Prolonged QT interval no longer present Electronically Signed On 08-23-18 16:01:32 CDT by Deon Ugalde
[2018-08-23 16:06] LABS: Absolute Lymphocytes (CBC) 2.7 K/uL (0.7-4.9); Basophils % 1.1 % (0-1.3); Eosinophils % 1.4 % (0-4.4); Hematocrit 38.3 % (36.0-45.0); Lymphocytes % 46.8 % (15.3-44.8); Monocytes % 7.6 % (3.3-12.3); RBC Red Blood Cell Count 4.07 M/uL (3.86-4.86)
[2018-08-23 16:09] LABS: Protime INR 1.08
--- NOTE | 2018-08-23 16:18 | RAD REPORT ---
EXAM DESCRIPTION: Jamal Single View08/23/2018 4:11 pm CLINICAL HISTORY: Chest pain COMPARISON: January 2018 FINDINGS: The lungs appear clear of acute infiltrate. The heart is normal size IMPRESSION: No acute abnormalities displayed
[2018-08-23 16:24] LABS: ALT/SGPT 11 U/L (12-78); AST/SGOT 9 U/L (15-37); Albumin 3.1 g/dL (3.4-5.0); Alkaline Phosphatase 76 U/L (45-117); BUN Blood Urea Nitrogen 13 mg/dL (7-18); Bicarbonate 29 mmol/L (21-32); Bilirubin Direct < 0.1 mg/dL (0-0.2); Bilirubin Total 0.3 mg/dL (0.2-1.0); Glucose Level 83 mg/dL (74-106); Magnesium 2.1 mg/dL (1.8-2.4); NT PRO-BNP 83 pg/mL (<125); Potassium 3.7 mmol/L (3.5-5.1); Protein, Total 6.5 g/dL (6.4-8.2); Sodium Level 146 mmol/L (136-145); Troponin (Emerg Dept Use Only) < 0.02 ng/mL (0.0-0.045)
--- NOTE | 2018-08-23 16:29 | RAD REPORT ---
EXAM DESCRIPTION: CT - Head Brain Wo Cont - 08/23/2018 4:06 pm CLINICAL HISTORY: Headache COMPARISON: December 2017 TECHNIQUE: Computed axial tomography of the head was obtained. IV contrast was not requested. All CT scans are performed using dose optimization technique as appropriate and may include automated exposure control or mA/KV adjustment according to patient size. FINDINGS: An intracranial bleed is not seen . The ventricles are normal in caliber. No extra-axial fluid collection is noted. Mild low-density areas within periventricular, deep and sub cortical white matter likely ischemic changes secondary to small vessel disease Fluid within the sinuses/ mastoids is not seen. IMPRESSION: No acute intracranial abnormality is seen. If patient's symptoms persist MRI of the bra in would be recommended.
[2018-08-23] MEDS ORDERED: NA CHLORIDE 0.9% 1,000 ML ONE (17:07)
[2018-08-23] MEDS ORDERED: ASPIRIN 81 MG CHEWABLE TABLET ONE (17:07)
[2018-08-23] MEDS ORDERED: KETOROLAC 30 MG/ML INJ ONE (17:20)
[2018-08-23] MEDS ORDERED: dexAMETHasone 10 MG/ML VIAL ONE (17:20)
--- NOTE | 2018-08-23 18:02 | EDPHYS ---
Physician Documentation [facility] Name: Abida Garza Age: 57 yrs Sex: Female : 1960 Arrival Date: 08/23/2018 Time: 15:21 Bed 15 Private MD: Christopher Robbins T ED Physician Jeremy Mendez HPI: 08/23 15:45 This 57 yrs old Female presents to ER via EMS with complaints of headache, cp chest pain. Historical: - Allergies: 16:00 Levaquin; wh 16:00 PENICILLINS; wh - Home Meds: 16:00 hydromorphone 4 mg Oral tab 1 tab three times a day [Active]; gabapentin 600 mg Oral wh tab 1 tab every 6 hours [Active]; quetiapine 200 mg oral tab nightly [Active]; tizanidine 4 mg Oral tab 1 tab three times a day [Active]; duloxetine 60 mg oral cpDR 1 cap twice a day [Active]; rosuvastatin 5 mg oral tab 1 tab nightly [Active]; ibuprofen 600 mg Oral tab 1 tab 3 times per day [Active]; valsartan 160 mg oral tab 1 tab once daily [Active]; - PMHx: 16:00 Asthma; chronic back pain; COPD; Depression; Sleep Apnea; Diabetes - NIDDM; High Cholesterol; Hypertension; - Immunization history:: Adult Immunizations up to date. - Social history:: Smoking status: Patient/guardian denies using tobacco. - Ebola Screening: : Patient negative for fever greater than or equal to 101.5 degrees Fahrenheit, and additional compatible Ebola Virus Disease symptoms Patient denies exposure to infectious person. ROS: 15:50 Constitutional: Negative for body aches, chills, fever, poor PO intake. cp 15:50 Eyes: Negative for injury, pain, redness, and discharge. cp 15:50 ENT: Negative for drainage from ear(s), ear pain, sore throat, difficulty swallowing, difficulty handling secretions. 15:50 Cardiovascular: Positive for chest pain, Negative for edema, palpitations. 15:50 Respiratory: Negative for cough, shortness of breath, wheezing. 15:50 Abdomen/GI: Negative for abdominal pain, vomiting, diarrhea, constipation, black/tarry stool, rectal bleeding. 15:50 : Negative for urinary symptoms. 15:50 Neuro: Positive for headache, syncope, weakness, Negative for altered mental status. 15:50 All other systems are negative. Exam: 15:55 ECG was reviewed by the Attending Physician. cp 15:57 Constitutional: The patient appears in no acute distress, alert, awake, cp non-diaphoretic, non-toxic, well developed, well nourished. 15:57 Head/Face: Normocephalic, atraumatic. cp 15:57 Eyes: Pupils equal round and reactive to light, extra-ocular motions intact. Lids and lashes normal. Conjunctiva and sclera are non-icteric and not injected. Cornea within normal limits. Periorbital areas with no swelling, redness, or edema. 15:57 ENT: External ear(s): are unremarkable, Ear canal(s): are normal, clear, TM's: bulging, is not appreciated, bilaterally, erythema, is not appreciated, bilaterally, Nose: is normal, Mouth: is normal, Posterior pharynx: is normal, airway is patent, no erythema, no exudate. 15:57 Neck: ROM/movement: is normal, is supple, without pain, no range of motions limitations, no meningismus, no nuchal rigidity. 15:57 Chest/axilla: Inspection: normal, Palpation: is normal, no crepitus, no tenderness. 15:57 Cardiovascular: Rate: normal, Rhythm: regular, Heart sounds: murmur, rub, not appreciated, gallop, not appreciated, Edema: is not appreciated, JVD: is not appreciated. 15:57 Respiratory: the patient does not display signs of respiratory distress, Respirations: normal, no use of accessory muscles, no retractions, no splinting, no tachypnea, labored breathing, is not present, Breath sounds: are clear throughout, no decreased breath sounds, no stridor, no wheezing. 15:57 Abdomen/GI: Inspection: abdomen appears normal, Palpation: abdomen is soft and non-tender, in all quadrants. 15:57 Back: pain, is absent, ROM is normal. 15:57 Skin: no rash present. 15:57 Neuro: Orientation: to person, place \T\ time. Mentation: is normal, Cerebellar function: is grossly normal, Motor: moves all fours, strength is normal, Sensation: is normal. Vital Signs: 15:25 BP 121 / 78; Pulse 75; Resp 12; Temp 99.2(O); Pulse Ox 97% on R/A; mh5 16:45 BP 150 / 85 Supine; Pulse 68; Resp 14; Pulse Ox 100% on R/A; mh5 16:47 BP 128 / 79 Sitting; Pulse 71; Resp 13; Pulse Ox 97% on R/A; mh5 16:49 BP 125 / 79 Standing; Pulse 71; Resp 12; Pulse Ox 97% on R/A; mh5 17:43 BP 146 / 80; Pulse 72; Resp 16; Pulse Ox 97% on R/A; aj 18:29 BP 141 / 93; Pulse 69; Resp 14; Temp 97.8(TE); Pulse Ox 97% on R/A; mh5 19:45 BP 164 / 87; Pulse 74; Resp 13; Temp 98.9; Pulse Ox 99% on R/A; jb4 20:00 BP 171 / 93; Pulse 67; Resp 12; Pulse Ox 99% on R/A; jb4 20:15 BP 169 / 92; Pulse 67; Resp 14; Pulse Ox 97% on R/A; jb4 MDM: 15:36 Patient medically screened. 17:35 Data reviewed: vital signs, nurses notes, lab test result(s), EKG, radiologic studies, cp CT scan, plain films. 17:35 Test interpretation: by ED physician or midlevel provider: ECG, plain radiologic cp studies. 17:35 Response to treatment: the patient's symptoms have markedly improved after treatment. 08/23 15:36 Order name: Basic Metabolic Panel 08/23 15:36 Order name: CBC with Diff; Complete Time: 16:41 08/23 15:36 Order name: LFT's; Complete Time: 16:41 08/23 15:36 Order name: Magnesium; Complete Time: 16:41 08/23 15:36 Order name: NT PRO-BNP; Complete Time: 16:41 08/23 15:36 Order name: PT-INR; Complete Time: 16:41 08/23 15:36 Order name: CT Head Brain wo Cont; Complete Time: 16:58 08/23 16:58 Interpretation: Report reviewed. 08/23 15:36 Order name: Troponin (emerg Dept Use Only); Complete Time: 16:41 cp 08/23 15:36 Order name: XRAY Chest (1 view); Complete Time: 16:41 cp 08/23 15:37 Order name: Basic Metabolic Panel; Complete Time: 16:41 EDMS 08/23 16:58 Interpretation: Normal except: NA 146; CL 111; GFR 59; CA 7.8. cp 08/23 18:21 Order name: Urine Dipstick--Ancillary (enter results) eb 08/23 18:39 Order name: Urine Dipstick-Ancillary EDIL 08/23 15:36 Order name: EKG; Complete Time: 15:38 cp 08/23 15:36 Order name: Cardiac monitoring; Complete Time: 15:47 cp 08/23 15:36 Order name: EKG - Nurse/Tech; Complete Time: 15:47 cp 08/23 15:36 Order name: IV Saline Lock; Complete Time: 15:47 cp 08/23 15:36 Order name: Labs collected and sent; Complete Time: 15:46 cp 08/23 15:36 Order name: O2 Per Protocol; Complete Time: 15:46 cp 08/23 15:36 Order name: O2 Sat Monitoring; Complete Time: 15:46 cp 08/23 16:27 Order name: Orthostatics; Complete Time: 16:38 cp 08/23 18:01 Order name: Urine Dipstick-Ancillary (obtain specimen); Complete Time: 18:36 cp EC:55 Rate is 71 beats/min. Rhythm is regular. MI interval is normal. QRS interval is normal. cp QT interval is normal. T waves are Flattened in lead aVL. Interpreted by me. Reviewed by me. 20:10 Rate is 62 beats/min. Rhythm is regular, Sinus Rhythm with 1st degree heart block. No Q pm1 waves. T waves are Normal. No ST changes noted. Clinical impression: 1st degree heart block. Administered Medications: 17:00 Drug: Aspirin Chewable Tablet 324 mg Route: PO; 18:02 Follow up: Response: No adverse reaction 17:00 Drug: NS 0.9% 1000 ml Route: IV; Rate: 1 bolus; Site: right antecubital; 20:22 Follow up: Response: No adverse reaction; IV Status: Infusion continued upon admission; jb4 Infusion converted to 100ml/hr transusion per dayshift. 17:26 Drug: TORadol 30 mg Route: IVP; Site: right antecubital; 18:02 Follow up: Response: No adverse reaction 17:26 Drug: Decadron - Dexamethasone 10 mg Route: IVP; Site: right antecubital; 18:02 Follow up: Response: No adverse reaction Disposition: 08/23/18 18:01 Hospitalization ordered by Abida Buitrago for Observation. Preliminary diagnosis are Chest pain, unspecified, Syncope and collapse. - Bed requested for Telemetry/MedSurg (observation). - Status is Observation. jb4 - Condition is Stable. - Problem is new. - Symptoms have improved. UTI on Admission? No Addendum: 08/26/2018 04:05 Co-signature as Attending Physician, Jeremy Mendez MD. g s Signatures: Dispatcher [employer] EDMS Bud Lewis PA PA cp Manolo Mccollum, HITESH [employer] AND COLLECTIONS REPRESENTATIVE pm1 Paolo Espinoza, RN RN jb4 Nilo Morales Jeremy Mendez MD MD gs Botello, Elizabeth eb Corrections: (The following items were deleted from the chart) 08/23 16:58 16:42 Normal except: NA 146; CL 111; GFR 59. cp cp 18:53 18:01 Hospitalization Ordered by Abida Buitrago MD for Observation. Preliminary diagnosis eb is Chest pain, unspecified; Syncope and collapse. Bed requested for Telemetry/MedSurg (observation). Status is Observation. Condition is Stable. Problem is new. Symptoms have improved. UTI on Admission? No. cp 20:22 18:53 08/23/2018 18:01 Hospitalization Ordered by Abida Buitrago MD for Observation. jb4 Preliminary diagnosis is Chest pain, unspecified; Syncope and collapse. Bed requested for Telemetry/MedSurg (observation). Status is Observation. Condition is Stable. Problem is new. Symptoms have improved. UTI on Admission? No. eb
--- NOTE | 2018-08-23 18:02 | ER ---
Nurse's Notes [facility] Name: Abida Garza Age: 57 yrs Sex: Female : 1960 Arrival Date: 08/23/2018 Time: 15:21 Bed 15 Private MD: Christopher Robbins T Diagnosis: Chest pain, unspecified;Syncope and collapse Presentation: 08/23 15:24 Presenting complaint: Patient states: Pt states she woke up with a headache and wh generalized weakness and took Ibuprofen. Pt states this afternoon she felt a little dizzy and lightheaded while walking. Pt states LOC and she might have passed out for a few seconds. Pt also C/O chest pain. Transition of care: patient was not received from another setting of care. Onset of symptoms was August 23, 2018. Risk Assessment: Do you want to hurt yourself or someone else? Patient reports no desire to harm self or others. Initial Sepsis Screen: Does the patient meet any 2 criteria? No. Patient's initial sepsis screen is negative. Does the patient have a suspected source of infection? No. Patient's initial sepsis screen is negative. Care prior to arrival: Medication(s) given: EMS started 20g RAC with ongoing NS 1L. 15:24 Method Of Arrival: [facility]: [facility] 15:24 Acuity: BALDO 3 Triage Assessment: 15:29 Pain: Denies pain. wh 15:50 General: Appears in no apparent distress. Behavior is calm, cooperative, appropriate for age. Historical: - Allergies: 16:00 Levaquin; 16:00 PENICILLINS; wh - Home Meds: 16:00 hydromorphone 4 mg Oral tab 1 tab three times a day [Active]; gabapentin 600 mg Oral tab 1 tab every 6 hours [Active]; quetiapine 200 mg oral tab nightly [Active]; tizanidine 4 mg Oral tab 1 tab three times a day [Active]; duloxetine 60 mg oral cpDR 1 cap twice a day [Active]; rosuvastatin 5 mg oral tab 1 tab nightly [Active]; ibuprofen 600 mg Oral tab 1 tab 3 times per day [Active]; valsartan 160 mg oral tab 1 tab once daily [Active]; - PMHx: 16:00 Asthma; chronic back pain; COPD; Depression; Sleep Apnea; Diabetes - NIDDM; High wh Cholesterol; Hypertension; - Immunization history:: Adult Immunizations up to date. - Social history:: Smoking status: Patient/guardian denies using tobacco. - Ebola Screening: : Patient negative for fever greater than or equal to 101.5 degrees Fahrenheit, and additional compatible Ebola Virus Disease symptoms Patient denies exposure to infectious person. Screenin:29 Abuse screen: Denies threats or abuse. Denies injuries from another. Nutritional wh screening: No deficits noted. Tuberculosis screening: No symptoms or risk factors identified. Fall Risk Fall in past 12 months (25 points). Assessment: 16:52 General: Appears in no apparent distress. Behavior is calm, cooperative, appropriate wh for age. Pain: Complains of pain in chest Pain does not radiate. Pain currently is 6 out of 10 on a pain scale. Quality of pain is described as aching, Pain began 4 hours ago. Neuro: Level of Consciousness is awake, alert, obeys commands, Oriented to person, place, time, situation, Appropriate for age Poolroom Table Attendant are equal bilaterally Reports headache weakness lightheartedness since luch. Denies difficulty swallowing, paresthesias numbness. Cardiovascular: Heart tones S1 S2 Capillary refill < 3 seconds. Respiratory: Airway is patent Respiratory effort is even, unlabored, Respiratory pattern is regular, symmetrical, Breath sounds are clear bilaterally. GI: Abdomen is round non-distended, Bowel sounds present X 4 quads. Abd is soft and non tender X 4 quads. : No signs and/or symptoms were reported regarding the genitourinary system. EENT: No signs and/or symptoms were reported regarding the EENT system. Derm: Skin is intact, is healthy with good turgor, Skin is pink, warm \\T\\ dry. normal. Musculoskeletal: Range of motion: intact in all extremities. 17:58 Reassessment: Patient appears in no apparent distress at this time. Patient and/or wh family updated on plan of care and expected duration. Pain level reassessed. Patient is alert, oriented x 3, equal unlabored respirations, skin warm/dry/pink. Patient states feeling better. 19:13 Reassessment: Patient appears in no apparent distress at this time. Patient and/or wh family updated on plan of care and expected duration. Pain level reassessed. Patient is alert, oriented x 3, equal unlabored respirations, skin warm/dry/pink. Patient denies pain at this time. handoff care report given to Yamil RIVERS. 19:15 Reassessment: Patient appears in no apparent distress at this time. Patient and/or jb4 family updated on plan of care and expected duration. Pain level reassessed. Patient is alert, oriented x 3, equal unlabored respirations, skin warm/dry/pink. 19:57 Reassessment: Report called to TITA Castellon. jb4 20:00 Reassessment: Patient and/or family updated on plan of care and expected duration. Pain jb4 level reassessed. Patient is alert, oriented x 3, equal unlabored respirations, skin warm/dry/pink. Pt reports having a "weird sensation" in her chest, does not hurt, feels light headed dizzy, and warm. EKG performed, provider notified. 20:21 Reassessment: Patient appears in no apparent distress at this time. Patient is alert, jb4 oriented x 3, equal unlabored respirations, skin warm/dry/pink. Pt reports the weird sensation has gone, she is no longer light headed or dizzy. Patient states feeling better. Vital Signs: 15:25 BP 121 / 78; Pulse 75; Resp 12; Temp 99.2(O); Pulse Ox 97% on R/A; mh5 16:45 BP 150 / 85 Supine; Pulse 68; Resp 14; Pulse Ox 100% on R/A; mh5 16:47 BP 128 / 79 Sitting; Pulse 71; Resp 13; Pulse Ox 97% on R/A; mh5 16:49 BP 125 / 79 Standing; Pulse 71; Resp 12; Pulse Ox 97% on R/A; mh5 17:43 BP 146 / 80; Pulse 72; Resp 16; Pulse Ox 97% on R/A; aj 18:29 BP 141 / 93; Pulse 69; Resp 14; Temp 97.8(TE); Pulse Ox 97% on R/A; mh5 19:45 BP 164 / 87; Pulse 74; Resp 13; Temp 98.9; Pulse Ox 99% on R/A; jb4 20:00 BP 171 / 93; Pulse 67; Resp 12; Pulse Ox 99% on R/A; jb4 20:15 BP 169 / 92; Pulse 67; Resp 14; Pulse Ox 97% on R/A; jb4 ED Course: 15:21 Patient arrived in ED. iw 15:24 Nilo Morales is Primary Nurse. wh 15:24 Patient has correct armband on for positive identification. Placed in gown. Bed in low mh5 position. Call light in reach. Side rails up X2. explosive operator on. Pulse ox on. NIBP on. 15:28 Triage completed. 15:29 [facility] cp 15:29 Jeremy Mendez MD is Attending Physician. cp 16:06 CT Head Brain wo Cont In Process Unspecified. EDMS 16:08 CT completed. Patient tolerated procedure well. Patient moved to radiology via vm2 stretcher. 16:11 XRAY Chest (1 view) In Process Unspecified. EDMS 16:24 Arm band placed on right wrist. wh 17:22 Christopher Robbins MD is Private Physician. cp 18:01 Abida Buitrago MD is Hospitalizing Provider. cp 19:45 No provider procedures requiring assistance completed. Patient admitted, IV remains in jb4 place. Administered Medications: 17:00 Drug: Aspirin Chewable Tablet 324 mg Route: PO; 18:02 Follow up: Response: No adverse reaction 17:00 Drug: NS 0.9% 1000 ml Route: IV; Rate: 1 bolus; Site: right antecubital; 20:22 Follow up: Response: No adverse reaction; IV Status: Infusion continued upon admission; jb4 Infusion converted to 100ml/hr transusion per dayshift. 17:26 Drug: TORadol 30 mg Route: IVP; Site: right antecubital; 18:02 Follow up: Response: No adverse reaction 17:26 Drug: Decadron - Dexamethasone 10 mg Route: IVP; Site: right antecubital; 18:02 Follow up: Response: No adverse reaction Intake: Outcome: 18:01 Decision to Hospitalize by Provider. cp 20:00 Admitted to Tele accompanied by tech, via wheelchair, room 423, with chart, Report jb4 called to TITA Castellon 20:00 Condition: stable 20:00 Discharge instructions given to patient, family, Instructed on the need for admit, Demonstrated understanding of instructions. 20:22 Patient left the ED. jb4 Signatures: Dispatcher [employer] Katerin Gaxiola, Ryanne Preston RN, RN RN iw Page, Corey, PA PA cp Bryson, James, RN RN Elle Mobley [facility] Dipti Reynaga [facility] Nilo Morales Corrections: (The following items were deleted from the chart) 15:37 15:24 Presenting complaint: Patient states: Pt states she woke up with a headache and wh generalized weakness and took Ibuprofen. Pt states this afternoon she felt a little dizzy and lightheaded while walking. Pt denies LOC but states she might have passed out for a few seconds wh
[2018-08-23 18:38] LABS: Urine Blood TRACE (NEG); Urine Glucose NEGATIVE (NEG); Urine Protein 2+ (NEG); Urine Specific Gravity 1.025 (1.005-1.030); Urine pH 5.5 (5.0-7.0)
[2018-08-23] MEDS ORDERED: ACETAMINOPHEN 500 MG TAB PO PRN (20:45)
[2018-08-23] MEDS ORDERED: NITROGLYCERIN 0.4 MG/TAB SL PRN (20:45)
[2018-08-23 20:54] VITALS: BMI 36.3
[2018-08-23] MEDS: INSULIN -REGULAR HUMAN 50 UNIT/0.5 ML ML SQ SCH (21:00)
[2018-08-23] MEDS: NA CHLORIDE 0.9% 1,000 ML IV SCH (22:45)
[2018-08-23] MEDS ORDERED: ENOXAPARIN 40 MG/0.4 ML SQ SCH (23:00)
[2018-08-24] MEDS: MORPHINE 4 MG/ML SYR IV PRN ×2 (00:27→05:36)
[2018-08-24 02:26] LABS: Urine Appearance CLOUDY; Urine Bilirubin NEGATIVE (NEG); Urine Blood NEGATIVE (NEG); Urine Color YELLOW; Urine Glucose TRACE (NEG); Urine Protein NEGATIVE (NEG); Urine pH 7.5 (5.0-7.0)
[2018-08-24 02:40] LABS: Urine Microscopic Reflex ORDER UMIC
[2018-08-24 02:48] LABS: Urine Culture Reflex Order NOT NEEDED
[2018-08-24 02:50] LABS: Urine Bacteria <20 /HPF (<20); Urine RBC NONE SEEN /HPF (NONE SEEN)
--- NOTE | 2018-08-24 04:18 | HP ---
Date of Admission: 08/23/2018 Primary Care Physician: Dr. Robbins. Chief Complaint: Dizziness, chest pain. History Of Present Illness: The patient is a 57-year-old female with past medical history of hyperte nsion, hyperlipidemia, borderline diabetes, depression, chronic back pain, who comes in with multiple episodes of syncope. The patient was in her usual state of health until 2 days prior to admission w hen the patient had sudden onset of chest pain which was retrosternal, nonradiating, sharp, intermitt ent, associated with some generalized weakness. The patient also reports dizziness that has been wor sening today. The patient states her blood pressure was in the 90s systolic and kept dropping. The patient's zxmzbmc-dd-ffe tried to help her get up and the patient became unresponsive for less than a minute. The patient had 2 of these episodes and therefore EMS were called. The patient's symptoms are progressive, moderate. No alleviating factors. In the ER, her workup revealed a negative tropon in level. EKG did not show any acute changes. White count was normal. Head CT scan did not show an y acute changes. Chest x-ray was clear. The patient was then referred for admission. When seen in the ER she was awake, alert, oriented x3 reporting generalized malaise and dizziness. She did have p ositive orthostatic vital signs. Past Medical History: Hypertension, hyperlipidemia, diabetes mellitus type 2, borderline depression, chronic back pain, COPD and obstructive sleep apnea. Allergies: TO PENICILLIN AND LEVAQUIN. Surgical History: Cholecystectomy, hysterectomy, hernia repair. Medications: List reviewed. Family History: States that her brother at the age of 29 from [place]. Review of Systems: An 11-point system reviewed, negative except as per HPI. Social History: The patient denies any tobacco use, alcohol use. The patient does have previous his tory of smoking, quit over 15 years ago. No illicit drug use. Physical Examination: Vital Signs: Blood pressure 121/78, pulse 75, respirations 12, temperature 99.2, O2 of 97% on room a ir. General: Awake, alert, oriented x3. Some mild distress. HEENT: Normocephalic, atraumatic. PERRLA. EOMI. Dry mucous membranes. Oropharynx is clear. Poor dentition. Conjunctivae are anicteric. Neck: Supple. No JVD. Trachea midline. CV: S1, S2. Regular rate and rhythm. Respiratory: Respirations clear to auscultation bilaterally. No wheezing or stridor. Gastrointestin al: Abdomen is soft, nontender, nondistended. Positive bowel sounds. Extremities: No clubbing, cyanosis, or edema. No calf tenderness. Neuro: Cranial nerves 2-12 intact grossly. No focal neurological deficit. Speech is normal. Skin: No rashes. Normal skin turgor. Psych: Mood is okay. Affect is full. Insight and judgment are good. Laboratory Data: INR 1.08. Sodium 146, potassium 3.7, chloride 111, CO2 of 29, BUN 13, creatinine 0 .97, glucose 83, calcium 7.8, magnesium 2.1, AST 9, ALT 11, rapid troponin is less than 0.02, albumin is 3.1, WBC 5.7, H and H 12.4 and 38.3, platelets 187, neutrophils 43%. Head CT scan shows no acute intracranial abnormalities. Chest x-ray shows no acute abnormalities displayed, personally reviewed . EKG shows normal sinus rhythm, rate of 71, no acute ST-T wave changes. Assessment: 1.Syncope. The patient does have positive orthostatic vital signs likely due to dehydration. We wi ll continue with IV fluids. We will check carotid artery ultrasound. Continue on telemetry. No sig ns of seizure activity with syncopal episode. 2.Chest pain. We will rule out acute coronary syndrome, obtain serial cardiac enzymes, start on shantel st pain guidelines. The patient will likely need to have further workup with elective stress test an d echocardiogram done as an outpatient basis. 3.Chronic obstructive pulmonary disease, chronic bronchitis. Albuterol as needed. 4.Essential hypertension. We will hold blood pressure medications due to positive orthostatic vital signs. 5.Hyperlipidemia. Continue statin. 6.Prediabetes. We will continue to monitor. Start on sliding scale insulin and monitor Accu-Cheks. 7.Major depressive disorder, recurrent. The patient is on SSRI, stable. 8.Chronic back pain. The patient takes gabapentin and tizanidine. We will hold the sedative medica tions for now. 9.Deep vein thrombosis prophylaxis with Lovenox. Plan: Admit the patient to Med/Surg, place as observation. /ROBERT Voice ID: [id number]
[2018-08-24 06:32] LABS: Absolute Lymphocytes (CBC) 1.7 K/uL (0.7-4.9); Basophils % 0.2 % (0-1.3); Hematocrit 42.3 % (36.0-45.0); Lymphocytes % 20.3 % (15.3-44.8); MPV 9.4 fL (7.6-11.3); Monocytes % 0.9 % (3.3-12.3); RBC Red Blood Cell Count 4.54 M/uL (3.86-4.86)
[2018-08-24] MEDS: NA CHLORIDE 0.9% 1,000 ML IV SCH (06:45)
[2018-08-24 06:55] LABS: BUN Blood Urea Nitrogen 17 mg/dL (7-18); Bicarbonate 29 mmol/L (21-32); Glucose Level 129 mg/dL (74-106); HDL Cholesterol 56 mg/dL (40-60); LDL Cholesterol, Calculated 100 (<130); Potassium 4.5 mmol/L (3.5-5.1); Sodium Level 143 mmol/L (136-145); Troponin I < 0.02 ng/mL (0.0-0.045)
[2018-08-24] MEDS: INSULIN -REGULAR HUMAN 50 UNIT/0.5 ML ML SQ SCH ×2 (07:30→11:30)
--- NOTE | 2018-08-24 08:26 | EKG ---
Test Date: 2018-08-23 Test Time: 20:08:35 Muff Winder: AG3 MEASUREMENT RESULTS: Intervals: Rate: 62 [place]: 216 QRSD: 94 QT: 426 QTc: 432 [place]: P: 75 [place]: 216 QRS: 12 T: 62 INTERPRETIVE STATEMENTS: Sinus rhythm with 1st degree AV block Otherwise normal ECG Compared to ECG 08/23/2018 15:46:08 First degree AV block now present Electronically Signed On 08-24-18 08:24:53 CDT by Deon Ugalde
[2018-08-24] MEDS ORDERED: SUMATRIPTAN SUCCI 50 MG TAB PO ONE (08:56)
[2018-08-24] MEDS ORDERED: ASPIRIN EC 81 MG TAB PO SCH (09:00)
[2018-08-24] MEDS ORDERED: ENOXAPARIN 40 MG/0.4 ML SQ SCH (09:00)
[2018-08-24] MEDS ORDERED: MORPHINE 2 MG/ML SYR IV PRN (09:04)
[2018-08-24] MEDS ORDERED: VALSARTAN 80 MG TAB PO SCH (09:18)
[2018-08-24] MEDS: TIZANIDINE 4 MG TABLET PO SCH ×2 (09:59→13:04)
[2018-08-24] MEDS: GABAPENTIN 300 MG CAP PO SCH ×2 (09:59→13:04)
[2018-08-24 10:25] VITALS: O2SAT 98
--- NOTE | 2018-08-24 10:33 | RAD REPORT ---
EXAM DESCRIPTION: - CP - 08/24/2018 9:46 am CLINICAL HISTORY: Syncope COMPARISON: None. TECHNIQUE: Real-time sonographic evaluation of both carotid systems was performed. Coombs scale and Do ppler interrogation were performed with waveform tracing bilaterally. FINDINGS: Normal high resistance waveforms are noted in both external carotid arteries. The common c arotid arteries and internal carotid arteries show normal low resistance waveforms. No significant plaque formation is seen. Peak systolic and end diastolic velocity values and the ICA/ CCA ratios are in the non-hemodynamically significant range. Antegrade flow seen in both vertebral arteries. Velocity values and ratios were recorded and are retained in the patient's imaging records. IMPRESSION: No significant atherosclerotic changes noted. No evidence of a hemodynamically significant stenosis.
[2018-08-24 12:10] VITALS: BP 177/91; TEMP 97.4
--- NOTE | 2018-08-24 13:00 | CON ---
Date of Consultation: 08/24/2018 Reason For Consultation: Syncope. History Of Present Illness: Ms. Garza is a 57-year-old white woman. She has multiple past medical h istory issues including hypertension, dyslipidemia, prediabetes, COPD, depression, obesity, and sleep apnea. She has never really had any cardiac issues in the past. Apparently, she was standing in e kitchen and felt very diaphoretic and dizzy, and almost passed out. Her blood pressure at that mich e was 103/70. She called Dr. Robbins who recommended she go to the hospital. She denied any chest pain , denied any nausea or vomiting. Denied any PND, orthopnea. She denies any palpitations or pedal ed lexa. Past Medical History: As stated above. Allergies: INSULIN AND LEVAQUIN. Review of Systems: Negative. Social History: Negative. Family History: Noncontributory. Medications: At home include Dilaudid, Cymbalta, Neurontin, valsartan, and Crestor. Physical Examination: General: She was asymptomatic. No acute distress. She weighed 211 pounds. Vital Signs: Stable. She was afebrile. HEENT: Negative. Neck: Supple. No bruit. Chest: Clear. Cardiac exam: Revealed a regular rhythm and rate. No murmurs, gallops, or rubs. Abdomen: Benign. Extremities: Revealed no clubbing, cyanosis, or edema. Diagnostic Data: All normal. EKG was normal. Chest x-ray was normal. CT of the head was normal. Impression And Plan: I think this passing syncope was secondary to orthostatic hypotension secondary to her polypharmacy including valsartan and Cymbalta. I think she deserves an echocardiogram and a carotid Doppler, both of which are pending. We will see what those shows prior to making final decis ion. I think she needs to increase her fluid intake, avoid dehydration and if she becomes dizzy, mandy ntually maybe have her increase her salt intake slightly. Ms. Garza has multiple cardiac risk factor s and certainly doing a stress test as an outpatient may be reasonable. For now, her blood pressure and her cholesterol seem to be well controlled. She has chronic obstructive pulmonary disease, which is stable. She is prediabetic, that is stable. She has a history of sleep apnea, depression, and o besity that are stable as well. We will follow her as needed. MARE/ROBERT Voice ID: [id number] Report ID: [id number]
[2018-08-24] MEDS ORDERED: HYDROMORPHONE ORAL 4 MG TAB PO SCH (14:00)
--- NOTE | 2018-08-24 14:35 | ECHO ---
HEIGHT: 5 ft 4 in WEIGHT: 211 lb 6.4 oz DATE OF STUDY: 08/24/[address]: Deon Ugalde MD 2-DIMENSIONAL: YES M.MODE: YES DOPPLER: YES COLOR FLOW: YES TDS: YES PORTABLE: NO DEFINITY: NO BUBBLE STUDY: NO DIAGNOSIS: CHEST PAIN, SYNCOPE CARDIAC HISTORY: CATHERIZATION: NO SURGERY: NO PROSTHETIC VALVE: NO PACEMAKER: NO MEASUREMENTS (cm) DIASTOLIC (NORMALS) SYSTOLIC (NORMALS) IVSd 1.0 (0.6-1.2) LA Diam (1.9-4.0) LVEF 64% LVIDd 3.5 (3.5-5.7) LVIDs 2.3 (2.0-3.5) %FS 34% LVPWd 1.0 (0.6-1.2) Ao Diam 2.2 (2.0-3.7) 2 DIMENSIONAL ASSESSMENT: RIGHT ATRIUM: NORMAL LEFT ATRIUM: NORMAL RIGHT VENTRICLE: NORMAL LEFT VENTRICLE: NORMAL TRICUSPID VALVE: NORMAL MITRAL VALVE: NORMAL PULMONIC VALVE: NORMAL AORTIC VALVE: NORMAL PERICARDIAL EFFUSION: NONE AORTIC ROOT: NORMAL LEFT VENTRICULAR WALL MOTION: NORMAL. DOPPLER/COLOR FLOW: NORMAL. COMMENTS: TECHNICALLY DIFFICULT STUDY. GROSSLY NORMAL LEFT VENTRICULAR EJECTION FRACTION AND SIZE. NO WALL MOTION ABNORMALITIES. NO EFFUSION. TECHNOLOGIST: LONNIE ARGUETA
[2018-08-24] MEDS ORDERED: TOPIRAMATE 25 MG TAB PO SCH (21:00)
[2018-08-24] MEDS ORDERED: ROSUVASTATIN 10 MG TAB PO SCH (21:00)
[2018-08-24] MEDS ORDERED: DULOXETINE 30 MG CAP PO SCH (21:00)
--- NOTE | 2018-08-25 13:09 | DS ---
Date of Discharge: 08/24/2018 Consultants: Dr. Ugalde with Cardiology. Discharge Diagnoses: 1.Syncopal episode, likely due to orthostatic hypotension. 2.Chest pain. 3.Chronic obstructive pulmonary disease, chronic bronchitis. 4.Essential hypertension. 5.Hyperlipidemia. 6.Prediabetes. 7.Major depressive disorder. 8.Chronic low back pain, midline, without sciatica. 9.Migraine headaches. Hospital Course: The patient is a 57-year-old female with past medical history of hypertension; hype rlipidemia; borderline diabetes; depression; chronic back pain, on gabapentin and tizanidine, sees Ruben in systems support specialist; comes in with dizziness, syncopal episode, and chest pain. The patient was worked up. She had a head CT scan, which was negative. She also complained of headache, which was similar to migraine headache. The patient's orthostatic vital signs were positive in the ER. She wa s given IV fluids, admitted to the hospital for rule out ACS and to workup her syncopal episodes. Se izure disorder was not evident by her history or symptoms. She did not have any symptoms of tongue b iting, eye rolling, convulsions, or postictal state. The patient was likely dehydrated causing the s yncopal episode. The patient is on sedative medications, which were held initially. She was hydrate d. Blood pressure improved. She was no longer orthostatic. The patient was seen by Cardiology. Ec hocardiogram and carotid ultrasound were done, which were within normal limits. The patient was able to ambulate without difficulty. Her symptoms improved. She no longer had chest pain. Regarding he r headache, she was given trial of sumatriptan and will be started on Topamax. The patient was recom mended to follow up with Neurology as outpatient. The patient does have a strong family history of m igraine. The patient was also recommended to discontinue tizanidine. States that she will be seeing Pain Management and is scheduled to come off tizanidine as well. The patient was then cleared for d ischarge. She was sent home in a stable condition. Activity: As tolerated. Medications: As per medication reconciliation list. Followup: Follow up with primary care physician in 2 to 3 days. Follow up with bottling line operator, Dr. Teofilo bal, in 2 weeks. Establish care with Neurology in 2 to 4 weeks. Return to ER for worsening condit ion. Diet: Heart healthy. Physical Examination: General: Awake, alert, oriented x3. An obese female. CV: S1, S2. No murmurs. Respiratory: Moving air well bilaterally. Abdomen: Soft, nontender, nondistended. Positive bowel sounds. Extremities: No clubbing, cyanosis, or edema. Neuro: Nonfocal. SA/MODL Voice ID: [id number] Report ID: [id number]
== END 2018-08-24 15:19 | disposition home or self-care (01) ==
LOC: ER 15:13 → ERHOLD 17:55 → 4TH 19:57
PROVIDERS: ADMIT Family Medicine; ATTEND Family Medicine
DX: R55 Syncope and collapse (principal); R07.9 Chest pain, unspecified; J44.9 Chronic obstructive pulmonary disease, unspecified; I10 Essential (primary) hypertension; E78.5 Hyperlipidemia, unspecified; R73.03 Prediabetes; F32.9 Major depressive disorder, single episode, unspecified; M54.5 Low back pain; G43.909 Migraine, unspecified, not intractable, without status migrainosus; Z88.0 Allergy status to penicillin
CPT/HCPCS: 96361; 93005 ×2; 93306; 87088; 85025 ×2; 87086; 80048 ×2; 36415; 83735; 85610; 80061; 82962 ×3; 80076; 81003; 84484 ×3; 83880; 70450; 71045; 93880; 97163; 94760 ×2; 96375; 96374; 99285; J1650; J1100; J7030 ×2; G0378 ×2; 81015

== ENCOUNTER 2018-09-02 18:07 | Emergency (ER) | payer OTHER ==
[2018-09-02] MEDS ORDERED: NA CHLORIDE 0.9% 1,000 ML ONE ×3 (18:45→20:51)
--- NOTE | 2018-09-02 18:57 | RAD REPORT ---
EXAM DESCRIPTION: CT - Head Brain Wo Cont - 09/02/2018 6:51 pm CLINICAL HISTORY: Syncope COMPARISON: August 23 TECHNIQUE: Axial 5 mm thick images of the head were obtained without IV contrast. All CT scans are performed using dose optimization technique as appropriate and may include automated exposure control or mA/KV adjustment according to patient size. FINDINGS: No intracranial hemorrhage, mass, edema or shift of mid-line structures. No acute infarcti on changes seen. No abnormal extra-axial fluid collections. Ventricles are normal. Mastoid air cells and visualized portions of the paranasal sinuses are clear. No acute bony findings. No significant change from comparison. IMPRESSION: Negative non-contrast CT head examination.
[2018-09-02 19:21] LABS: Urine Blood TRACE (NEG); Urine Glucose NEGATIVE (NEG); Urine Protein 2+ (NEG); Urine Specific Gravity 1.025 (1.005-1.030)
[2018-09-02 19:22] LABS: Absolute Lymphocytes (CBC) 4.5 K/uL (0.7-4.9); Basophils % 0.4 % (0-1.3); Eosinophils % 2.2 % (0-4.4); Hematocrit 39.9 % (36.0-45.0); Lymphocytes % 48.3 % (15.3-44.8); MPV 9.4 fL (7.6-11.3); Monocytes % 7.5 % (3.3-12.3); RBC Red Blood Cell Count 4.26 M/uL (3.86-4.86)
[2018-09-02 19:24] LABS: Urine Bacteria >50 /HPF (<20); Urine Culture Reflex Order REFLEXED; Urine RBC <5 /HPF (NONE SEEN)
[2018-09-02 19:25] LABS: Protime INR 1.03
[2018-09-02 19:34] LABS: ALT/SGPT 13 U/L (12-78); AST/SGOT 10 U/L (15-37); Albumin 3.4 g/dL (3.4-5.0); Alkaline Phosphatase 91 U/L (45-117); BUN Blood Urea Nitrogen 13 mg/dL (7-18); Bicarbonate 28 mmol/L (21-32); Bilirubin Direct 0.1 mg/dL (0-0.2); Bilirubin Total 0.7 mg/dL (0.2-1.0); Glucose Level 107 mg/dL (74-106); Potassium 3.5 mmol/L (3.5-5.1); Protein, Total 7.4 g/dL (6.4-8.2); Sodium Level 142 mmol/L (136-145)
[2018-09-02 19:39] LABS: Barbiturates NEGATIVE (NEGATIVE); Benzodiazepines NEGATIVE (NEGATIVE); Cocaine NEGATIVE (NEGATIVE); METHAMPHETAM NEGATIVE (NEGATIVE); Methadone NEGATIVE (NEGATIVE); Opiates POSITIVE (NEGATIVE); Phencyclidine NEGATIVE (NEGATIVE); THC Cannibis NEGATIVE (NEGATIVE)
[2018-09-02] MEDS ORDERED: SMZ./TMP. 800/160 MG TABLET ONE (20:51)
[2018-09-02 22:19] LABS: Potassium 3.6 mmol/L (3.5-5.1)
--- NOTE | 2018-09-02 22:25 | ER ---
Nurse's Notes [facility] Name: Abida Garza Age: 57 yrs Sex: Female : 1960 Arrival Date: 09/02/2018 Time: 18:11 Bed 25 Private MD: Christopher Robbins T Diagnosis: Suicidal ideations;Dehydration;Urinary tract infection, site not specified Presentation: 09/02 18:18 Presenting complaint: Patient states: I have been feeling bad since about 1130 this la1 morning, feeling real faint, kind of woke up in a chair. Denies falling at any point or any trauma. Transition of care: patient was not received from another setting of care. Onset of symptoms was September 02, 2018. Risk Assessment: Do you want to hurt yourself or someone else? Patient reports no desire to harm self or others. Initial Sepsis Screen: Does the patient meet any 2 criteria? No. Patient's initial sepsis screen is negative. Does the patient have a suspected source of infection? No. Patient's initial sepsis screen is negative. Care prior to arrival: None. 18:18 Method Of Arrival: Ambulatory la1 18:18 Acuity: BALDO 2 la1 Triage Assessment: 18:25 General: Appears in no apparent distress. uncomfortable, obese, Behavior is hj cooperative, appropriate for age, anxious. Pain: Complains of pain in back. Historical: - Allergies: 18:18 Levaquin; la1 18:18 PENICILLINS; la1 - Home Meds: 18:28 duloxetine 60 mg Oral cpDR 1 cap twice a day [Active]; gabapentin 600 mg Oral tab 1 tab hj every 6 hours [Active]; hydromorphone 4 mg Oral tab 1 tab three times a day [Active]; ibuprofen 600 mg Oral tab 1 tab 3 times per day [Active]; quetiapine 200 mg Oral tab nightly [Active]; rosuvastatin 5 mg Oral tab 1 tab nightly [Active]; tizanidine 4 mg Oral tab 1 tab three times a day [Active]; valsartan 160 mg Oral tab 1 tab once daily [Active]; - PMHx: 18:18 Asthma; chronic back pain; COPD; Depression; High Cholesterol; Hypertension; Sleep la1 Apnea; - Immunization history:: Adult Immunizations up to date. - Social history:: Smoking status: Patient/guardian denies using tobacco. - Ebola Screening: : No symptoms or risks identified at this time. Screenin:25 Abuse screen: Denies threats or abuse. Has been threatened or abused. Nutritional hj screening: No deficits noted. Tuberculosis screening: No symptoms or risk factors identified. Fall Risk None identified. Assessment: 18:48 General: Appears in no apparent distress. uncomfortable, Behavior is cooperative, hj appropriate for age, anxious. Pain: Complains of pain in back. Neuro: Level of Consciousness is awake, alert, obeys commands, Oriented to person, place, time, situation, Appropriate for age. Neuro: Reports syncopal episode and memory loss'. Cardiovascular: Capillary refill < 3 seconds Patient's skin is warm and dry. Respiratory: Airway is patent Respiratory effort is even, unlabored, Respiratory pattern is regular, symmetrical. GI: No signs and/or symptoms were reported involving the gastrointestinal system. : No signs and/or symptoms were reported regarding the genitourinary system. EENT: No signs and/or symptoms were reported regarding the EENT system. Derm: No signs and/or symptoms reported regarding the dermatologic system. Musculoskeletal: No signs and/or symptoms reported regarding the musculoskeletal system. 19:14 General: Appears in no apparent distress. comfortable, Behavior is calm, cooperative. ak1 Pain: Denies pain. Neuro: Level of Consciousness is awake, alert, obeys commands, Oriented to person, place, time, situation, Concrete Pipe Making Machine Operator are equal bilaterally Speech is normal. Cardiovascular: Capillary refill < 3 seconds Patient's skin is warm and dry. Respiratory: Airway is patent Respiratory effort is even, unlabored, Respiratory pattern is regular. GI: No signs and/or symptoms were reported involving the gastrointestinal system. : No signs and/or symptoms were reported regarding the genitourinary system. EENT: No signs and/or symptoms were reported regarding the EENT system. EENT: No signs and/or symptoms were reported regarding the EENT system. Derm: No signs and/or symptoms reported regarding the dermatologic system. Musculoskeletal: No signs and/or symptoms reported regarding the musculoskeletal system. 20:51 Reassessment: Patient appears in no apparent distress at this time. No changes from ak1 previously documented assessment. Patient is alert, oriented x 3, equal unlabored respirations, skin warm/dry/pink. pt ambulated to restroom with slow steady gait. pt informed of importance of eating and fluid intake after discharge. 21:42 Reassessment: pt family stated to Manolo PROCTOR pt is SI with a suicide note. pt denied SI ak1 to this nurse. 23:43 Reassessment: nurse to nurse with Gm from [facility]. to with Dr. mir Bergeron at [phone]. 23:43 Reassessment: [facility] nurse to nurse with ak1 Vital Signs: 18:17 BP 84 / 47; Pulse 81; Resp 16; Temp 97.6; Pulse Ox 98% on R/A; Weight 94.35 kg; Height la1 5 ft. 4 in. (162.56 cm); 18:25 BP 80 / 52; Pulse 75; Resp 18; Pulse Ox 100% on R/A; hj 19:14 BP 85 / 46; Pulse 66; Resp 12; Pulse Ox 100% on R/A; ak1 19:44 BP 92 / 47; Pulse 68; Resp 12; Temp 97.6; Pulse Ox 100% ; ak1 20:15 BP 102 / 53 RA Supine (auto/lg); Pulse 75; Pulse Ox 100% on R/A; jp3 20:19 BP 115 / 66 RA Sitting (auto/lg); Pulse 76; Pulse Ox 100% on R/A; jp3 20:21 BP 107 / 46 RA Standing (auto/lg); Pulse 76; Pulse Ox 100% on R/A; jp3 20:53 BP 120 / 63; Pulse 72; Resp 16; Pulse Ox 100% on R/A; ak1 22:06 BP 117 / 85; Pulse 75; Resp 16; Temp 98.0; Pulse Ox 100% on R/A; Pain 0/10; ak1 09/03 00:28 BP 120 / 73; Pulse 75; Resp 16; Temp 98.2; Pulse Ox 100% on R/A; ak1 09/02 18:17 Body Mass Index 35.70 (94.35 kg, 162.56 cm) la1 09/02 20:15 pt stated they were feeling dizzy but less than upon arrival to ED jp3 20:19 pt stated they were feeling dizzy but less than upon arrival to ED; same as supine jp3 20:21 pt stated they were feeling dizzy but less than upon arrival to ED; same as supine and jp3 sitting ED Course: 18:11 Patient arrived in ED. mr 18:11 Christopher Robbins MD is Private Physician. mr 18:18 Arm band placed on right wrist. la1 18:19 Triage completed. la1 18:20 Manolo Mccollum, HITESH is PHCP. pm1 18:20 Chris Montes MD is Attending Physician. pm1 18:20 Harshad Danielson RN is Primary Nurse. hj 18:26 Patient has correct armband on for positive identification. Placed in gown. Bed in low hj position. Call light in reach. Side rails up X 1. Adult w/ patient. 18:40 Initial lab(s) drawn, by me, sent to lab. Urine collected: clean catch specimen, hj cloudy. Inserted saline lock: 20 gauge in left antecubital area, using aseptic technique. Blood collected. 18:51 CT Head Brain wo Cont In Process Unspecified. EDMS 20:51 No provider procedures requiring assistance completed. ak1 22:00 Safety Checks: Personal items have been removed. pt family at bedside, pt family has pt ak1 belongings with them. The door is open or patient has been placed in a hallway bed/chair. A family member and/or friend is present and encouraged to stay. Sitter present at this time. 22:05 assistant basketball coach on. Pulse ox on. NIBP on. Warm blanket given. Head of bed elevated. ak1 22:05 Repeat lab(s) drawn. by me, sent to lab. ak1 22:15 Safety Checks: Personal items have been removed. The door is open or patient has been ak1 placed in a hallway bed/chair. A family member and/or friend is present and encouraged to stay. Sitter present at this time. 22:30 Safety Checks: Personal items have been removed. The door is open or patient has been ak1 placed in a hallway bed/chair. A family member and/or friend is present and encouraged to stay. Sitter present at this time. 22:45 Safety Checks: Personal items have been removed. The door is open or patient has been ak1 placed in a hallway bed/chair. A family member and/or friend is present and encouraged to stay. Sitter present at this time. 23:00 Safety Checks: Personal items have been removed. The door is open or patient has been ak1 placed in a hallway bed/chair. A family member and/or friend is present and encouraged to stay. Sitter present at this time. 23:15 Safety Checks: Personal items have been removed. The door is open or patient has been ak1 placed in a hallway bed/chair. A family member and/or friend is present and encouraged to stay. Sitter present at this time. 23:30 Safety Checks: Personal items have been removed. The door is open or patient has been ak1 placed in a hallway bed/chair. A family member and/or friend is present and encouraged to stay. Sitter present at this time. 23:45 Safety Checks: Personal items have been removed. The door is open or patient has been ak1 placed in a hallway bed/chair. A family member and/or friend is present and encouraged to stay. Sitter present at this time. 23:56 Diet: Patient given ice chips. jp3 09/03 00:00 Safety Checks: Personal items have been removed. The door is open or patient has been ak1 placed in a hallway bed/chair. A family member and/or friend is present and encouraged to stay. Sitter present at this time. 00:15 Safety Checks: Personal items have been removed. The door is open or patient has been ak1 placed in a hallway bed/chair. A family member and/or friend is present and encouraged to stay. Sitter present at this time. 00:30 Safety Checks: Personal items have been removed. The door is open or patient has been ak1 placed in a hallway bed/chair. A family member and/or friend is present and encouraged to stay. Sitter present at this time. 01:13 IV discontinued, intact, bleeding controlled, No redness/swelling at site. Pressure ak1 dressing applied. Administered Medications: 09/02 18:40 Drug: NS 0.9% 1000 ml Route: IV; Rate: 1000 ml; Site: left antecubital; hj 20:25 Follow up: IV Status: Completed infusion; IV Intake: 1000ml la1 19:13 Drug: NS 0.9% 1000 ml Route: IV; Rate: 1 bolus; Site: left antecubital; ak1 20:24 Follow up: IV Status: Completed infusion; IV Intake: 1000ml la1 20:31 Not Given (Duplicate Order): NS 0.9% 1000 ml IV at 1000 ml once ak1 20:43 Drug: NS 0.9% 1000 ml Route: IV; Rate: 1000 ml; Site: left antecubital; ak1 22:04 Follow up: IV Status: Completed infusion; IV Intake: 1000ml ak1 20:43 Drug: Bactrim (160 mg-800 mg (DS) 1 tablet Route: PO; ak1 20:57 Follow up: Response: No adverse reaction ak1 Intake: 20:24 IV: 1000ml; Total: 1000ml. la1 20:25 IV: 1000ml; Total: 2000ml. la1 22:04 IV: 1000ml; Total: 3000ml. [facility] Outcome: 22:25 ER care complete, transfer ordered by MD. pm1 09/03 01:13 Transferred by ground EMS Transfer form completed. Note: [facility] of [address] report was given to Gm. Condition: good Instructed on the need for transfer, Demonstrated understanding of 01:16 Patient left the ED. [facility] Signatures: Dispatcher [employer] ANNMN Robert Bethany ChristopherFaheem, RN RN la1 Jadyn Hernandez RN RN ak1 Harshad Danielson, Manolo Zhang RN, MEDICARE SALES REPRESENTATIVE MEDICARE SALES REPRESENTATIVE pm1 Godfrey Powers jp3 Corrections: (The following items were deleted from the chart) 09/02 18:28 18:25 BP 125 / 104; Pulse 75bpm; Resp 18bpm; Pulse Ox 100% RA; georgina erickson
--- NOTE | 2018-09-02 22:25 | EDPHYS ---
Physician Documentation [facility] Name: Abida Garza Age: 57 yrs Sex: Female : 1960 Arrival Date: 09/02/2018 Time: 18:11 Bed 25 Private MD: Christopher Robbins T ED Physician Chris Montes HPI: 09/02 19:40 This 57 yrs old Female presents to ER via Ambulatory with complaints of Near pm1 Syncope. 19:40 The patient has experienced near-syncope, felt faint. Onset: The symptoms/episode pm1 began/occurred this morning. Context: Just prior to the episode the patient experienced Depression, decreased appetite. Associated injury: The patient did not suffer any apparent associated injury. Associated signs and symptoms: Pertinent negatives: abdominal pain, chest pain, diarrhea, numbness, shortness of breath, tingling, vomiting. Current symptoms: Currently, the patient is not experiencing any symptoms. Patient with significant other leaving her on Monday. Since then she been depressed and not eating, not sleeping, lack of interest. Patient has continued taking her medications for chronic back pain and HTN as prescribed. 19:40 The patient has been recently been admitted at [facility], Admit pm1 on 08/23/18 and discharged on 08/24/18 for similar complaint of headache, syncopal episode, dizziness, and orthostasis. Patient with negative CT head, evaluated by cardiology with normal limit echocardiogram and carotid ultrasound. Impression on discharge patient was likely dehydrated and symptoms resolved with IV fluid hydration. Patient is presenting today with similar complaints of near syncope related to decreased PO intake for four days due to depression from breaking up with her significant other. Historical: - Allergies: 18:18 Levaquin; la1 18:18 PENICILLINS; la1 - Home Meds: 18:28 duloxetine 60 mg Oral cpDR 1 cap twice a day [Active]; gabapentin 600 mg Oral tab 1 tab hj every 6 hours [Active]; hydromorphone 4 mg Oral tab 1 tab three times a day [Active]; ibuprofen 600 mg Oral tab 1 tab 3 times per day [Active]; quetiapine 200 mg Oral tab nightly [Active]; rosuvastatin 5 mg Oral tab 1 tab nightly [Active]; tizanidine 4 mg Oral tab 1 tab three times a day [Active]; valsartan 160 mg Oral tab 1 tab once daily [Active]; - PMHx: 18:18 Asthma; chronic back pain; COPD; Depression; High Cholesterol; Hypertension; Sleep la1 Apnea; - Immunization history:: Adult Immunizations up to date. - Social history:: Smoking status: Patient/guardian denies using tobacco. - Ebola Screening: : No symptoms or risks identified at this time. ROS: 19:40 Constitutional: Negative for fever, chills, and weight loss, Eyes: Negative for injury, pm1 pain, redness, and discharge, ENT: Negative for injury, pain, and discharge, Neck: Negative for injury, pain, and swelling, Cardiovascular: Negative for chest pain, palpitations, and edema, Respiratory: Negative for shortness of breath, cough, wheezing, and pleuritic chest pain, Abdomen/GI: Negative for abdominal pain, nausea, vomiting, diarrhea, and constipation, Back: Negative for injury and pain, : Negative for injury, bleeding, discharge, and swelling, MS/Extremity: Negative for injury and deformity, Skin: Negative for injury, rash, and discoloration. 19:40 Neuro: Positive for near syncope, Negative for numbness, tingling. 19:40 Psych: Positive for depression, Negative for auditory hallucinations, visual hallucinations, homicidal ideation, suicide gesture, suicidal ideation. Exam: 19:40 Constitutional: This is a well developed, well nourished patient who is awake, alert, pm1 and in no acute distress. 19:40 Head/Face: Normocephalic, atraumatic. Eyes: Pupils equal round and reactive to light, extra-ocular motions intact. Lids and lashes normal. Conjunctiva and sclera are non-icteric and not injected. Cornea within normal limits. Periorbital areas with no swelling, redness, or edema. ENT: Nares patent. No nasal discharge, no septal abnormalities noted. Tympanic membranes are normal and external auditory canals are clear. Oropharynx with no redness, swelling, or masses, exudates, or evidence of obstruction, uvula midline. Mucous membranes moist. Neck: Trachea midline, no thyromegaly or masses palpated, and no cervical lymphadenopathy. Supple, full range of motion without nuchal rigidity, or vertebral point tenderness. No Meningismus. Chest/axilla: Normal chest wall appearance and motion. Nontender with no deformity. No lesions are appreciated. Cardiovascular: Regular rate and rhythm with a normal S1 and S2. No gallops, murmurs, or rubs. Normal PMI, no JVD. No pulse deficits. Respiratory: Lungs have equal breath sounds bilaterally, clear to auscultation and percussion. No rales, rhonchi or wheezes noted. No increased work of breathing, no retractions or nasal flaring. Abdomen/GI: Soft, non-tender, with normal bowel sounds. No distension or tympany. No guarding or rebound. No evidence of tenderness throughout. Back: No spinal tenderness. No costovertebral tenderness. Full range of motion. Skin: Warm, dry with normal turgor. Normal color with no rashes, no lesions, and no evidence of cellulitis. MS/ Extremity: Pulses equal, no cyanosis. Neurovascular intact. Full, normal range of motion. 19:40 Neuro: Orientation: is normal, to person, place, time \T\ situation. Mentation: is normal, Motor: moves all fours, strength is normal, strength is 5/5 in all extremities, Sensation: is normal, no obvious gross deficits. 19:40 Psych: Behavior/mood is cooperative, depressed, Affect is flat, Patient has no thoughts/intents to harm self or others. Delusions/hallucinations are not present. Vital Signs: 18:17 BP 84 / 47; Pulse 81; Resp 16; Temp 97.6; Pulse Ox 98% on R/A; Weight 94.35 kg; Height la1 5 ft. 4 in. (162.56 cm); 18:25 BP 80 / 52; Pulse 75; Resp 18; Pulse Ox 100% on R/A; hj 19:14 BP 85 / 46; Pulse 66; Resp 12; Pulse Ox 100% on R/A; ak1 19:44 BP 92 / 47; Pulse 68; Resp 12; Temp 97.6; Pulse Ox 100% ; ak1 20:15 BP 102 / 53 RA Supine (auto/lg); Pulse 75; Pulse Ox 100% on R/A; jp3 20:19 BP 115 / 66 RA Sitting (auto/lg); Pulse 76; Pulse Ox 100% on R/A; jp3 20:21 BP 107 / 46 RA Standing (auto/lg); Pulse 76; Pulse Ox 100% on R/A; jp3 20:53 BP 120 / 63; Pulse 72; Resp 16; Pulse Ox 100% on R/A; ak1 22:06 BP 117 / 85; Pulse 75; Resp 16; Temp 98.0; Pulse Ox 100% on R/A; Pain 0/10; ak1 09/03 00:28 BP 120 / 73; Pulse 75; Resp 16; Temp 98.2; Pulse Ox 100% on R/A; ak1 09/02 18:17 Body Mass Index 35.70 (94.35 kg, 162.56 cm) la1 09/02 20:15 pt stated they were feeling dizzy but less than upon arrival to ED jp3 20:19 pt stated they were feeling dizzy but less than upon arrival to ED; same as supine jp3 20:21 pt stated they were feeling dizzy but less than upon arrival to ED; same as supine and jp3 sitting MDM: 18:20 Patient medically screened. pm1 20:02 Data reviewed: vital signs. Data interpreted: Pulse oximetry: on room air is 100 %. pm1 Interpretation: normal. 20:25 ED course: Patient's son approached me and reported that his mother reported she was pm1 suicidal to his sister. Will have patient evaluated by katie lacey. Patient had a plan to drive her car [place] a river. 20:35 ED course: Patient evaluated by Katie Lacey - Jany Olson. She recommends inpatient pm1 evaluation and treatment. 20:41 ED course: Patient with plan to drive her truck into the water. Stopped by her friend pm1 who showed up at the house. Patient's [place] to the [place]. Patient has prepared a suicide note . 22:30 Counseling: I had a detailed discussion with the patient and/or guardian regarding: the pm1 historical points, exam findings, and any diagnostic results supporting the discharge/admit diagnosis, lab results, radiology results, the need to transfer to another facility, [facility] does not immediately have the required specialist, psychiatric facility. 09/03 00:21 Physician consultation: Dr Bergeron was called at 00:21, was contacted at 00:21, regarding snw regarding transfer, to a psychiatric hospital. 09/02 18:23 Order name: Acetaminophen pm1 09/02 18:23 Order name: Basic Metabolic Panel pm1 09/02 18:23 Order name: CBC with Diff; Complete Time: 19:40 pm1 09/02 18:23 Order name: ETOH Level; Complete Time: 19:40 pm1 09/02 18:23 Order name: Hepatic Function; Complete Time: 19:40 pm1 09/02 18:23 Order name: PT-INR; Complete Time: 19:40 pm1 09/02 18:23 Order name: Ptt, Activated; Complete Time: 19:40 pm1 09/02 18:23 Order name: Salicylate; Complete Time: 19:40 pm1 09/02 18:23 Order name: Urine Drug Screen; Complete Time: 19:40 pm1 09/02 18:24 Order name: Acetaminophen Level; Complete Time: 19:40 EDMS 09/02 18:24 Order name: Basic Metabolic Panel; Complete Time: 19:40 EDMS 09/02 18:45 Order name: Urine Microscopic Only; Complete Time: 19:40 pm1 09/02 19:14 Order name: Urine Dipstick--Ancillary (enter results); Complete Time: 19:40 al5 09/02 19:26 Order name: Urine Culture EDMS 09/02 18:22 Order name: Orthostatics; Complete Time: 20:29 pm1 09/02 18:23 Order name: CT Head Brain wo Cont; Complete Time: 19:02 pm1 09/02 18:23 Order name: EKG; Complete Time: 18:25 pm1 09/02 18:23 Order name: EKG - Nurse/Tech; Complete Time: 18:58 pm1 09/02 18:23 Order name: IV Saline Lock; Complete Time: 18:47 pm1 09/02 18:23 Order name: Labs collected and sent; Complete Time: 18:47 pm1 09/02 18:23 Order name: Urine Dipstick-Ancillary (obtain specimen); Complete Time: 18:47 pm1 09/02 21:40 Order name: BMP; Complete Time: 22:22 pm1 EC/07 19:11 Rate is 68 beats/min. Rhythm is regular, Normal Sinus Rhythm. QRS [place] is Normal. No Q pm1 waves. No ST changes noted. Clinical impression: NSR w/ Non-specific ST/T Changes. Administered Medications: 18:40 Drug: NS 0.9% 1000 ml Route: IV; Rate: 1000 ml; Site: left antecubital; hj 20:25 Follow up: IV Status: Completed infusion; IV Intake: 1000ml la1 19:13 Drug: NS 0.9% 1000 ml Route: IV; Rate: 1 bolus; Site: left antecubital; ak1 20:24 Follow up: IV Status: Completed infusion; IV Intake: 1000ml la1 20:31 Not Given (Duplicate Order): NS 0.9% 1000 ml IV at 1000 ml once ak1 20:43 Drug: NS 0.9% 1000 ml Route: IV; Rate: 1000 ml; Site: left antecubital; ak1 22:04 Follow up: IV Status: Completed infusion; IV Intake: 1000ml ak1 20:43 Drug: Bactrim (160 mg-800 mg (DS) 1 tablet Route: PO; ak1 20:57 Follow up: Response: No adverse reaction ak1 Disposition: 09/02/18 22:25 Transfer ordered to Psych Facility. Diagnosis are Suicidal ideations, Dehydration, Urinary tract infection, site not specified. - Reason for transfer: Specialty. - Accepting physician is Psychiatrist. - Condition is Stable. - Problem is new. - Symptoms have improved. Addendum: 09/06/2018 02:13 Co-signature as Attending Physician, Chris Montes MD. m a2 Signatures: Dispatcher [employer] EDMary Maier, NELLY-C JAIL KEEPER-Csnw Faheem Christopher, RN RN la1 Jadyn Hernandez RN RN ak1 Harshad Danielson RN RN hj Marinas, Patrick, SKEIN STRAIGHTENER SKEIN STRAIGHTENER pm1 Chris Montes MD MD ma2 Corrections: (The following items were deleted from the chart) 09/02 23:13 22:25 09/02/2018 22:25 Transfer ordered to Psych Facility. Diagnosis is Suicidal pm1 ideations; Dehydration. Reason for transfer: Specialty. Accepting physician is Psychiatrist. Condition is Stable. Problem is new. Symptoms have improved. pm1 09/03 01:16 09/02 23:13 09/02/2018 22:25 Transfer ordered to Psych Facility. Diagnosis is Suicidal ak1 ideations; Dehydration; Urinary tract infection, site not specified. Reason for transfer: Specialty. Accepting physician is Psychiatrist. Condition is Stable. Problem is new. Symptoms have improved. pm1
[2018-09-03 01:22] VITALS: O2SAT 100
[2018-09-03 01:32] VITALS: BP 120/73; TEMP 98.2
--- NOTE | 2018-09-03 12:53 | EKG ---
Test Date: 2018-09-02 Test Time: 19:00:01 Database Specialist: ADRIENNE MEASUREMENT RESULTS: Intervals: Rate: 68 ID: [id number] QRSD: 92 QT: 412 QTc: 438 [place]: P: 71 ID: [id number] QRS: 25 T: 65 INTERPRETIVE STATEMENTS: Normal sinus rhythm Nonspecific T wave abnormality Abnormal ECG Compared to ECG 08/23/2018 20:08:35 T-wave abnormality now present First degree AV block no longer present Electronically Signed On 09-03-18 12:49:47 CDT by Deon Ugalde
== END 2018-09-03 01:16 ==
LOC: ER 18:07
DX: E86.0 Dehydration (principal); N39.0 Urinary tract infection, site not specified; I10 Essential (primary) hypertension; E78.00 Pure hypercholesterolemia, unspecified; F32.9 Major depressive disorder, single episode, unspecified; J44.9 Chronic obstructive pulmonary disease, unspecified; Z88.0 Allergy status to penicillin; Z88.1 Allergy status to other antibiotic agents
CPT/HCPCS: 96361; 93005; 87088; 85025; 87086; 80048 ×2; 36415; 80320; 80329 ×2; 85610; 80076; 80307 ×8; 85730; 70450; 96360; 99285; J7030 ×3; 81003; 81015; 87077; 87186

== ENCOUNTER 2020-12-28 14:21 | Observation (INO) | payer OTHER ==
--- NOTE | 2020-12-28 14:41 | RAD REPORT ---
EXAM DESCRIPTION: CT - Ct Stroke Brain Wo Cont - 12/28/2020 2:35 pm CLINICAL HISTORY: NUMBNESS COMPARISON: Head Brain Wo Cont dated 07/09/2020; Head Brain Wo Cont dated 05/01/2019Head Brain Wo Cont dated 07/09/2020; Head Brain Wo Cont dated 05/01/2019 TECHNIQUE: All CT scans are performed using dose optimization technique as appropriate and may inclu de automated exposure control or mA/KV adjustment according to patient size. FINDINGS: No intracranial hemorrhage, hydrocephalus or extra-axial fluid collection.No areas of brai n edema or evidence of midline shift. The paranasal sinuses and mastoids are clear. The calvarium is intact. IMPRESSION: No acute intracranial abnormality.
[2020-12-28 14:55] LABS: Absolute Lymphocytes (CBC) 2.9 K/uL (0.7-4.9); Basophils % 0.9 % (0-1.3); Hematocrit 40.6 % (36.0-45.0); Lymphocytes % 43.8 % (15.3-44.8); MPV 9.1 fL (7.6-11.3); RBC Red Blood Cell Count 4.38 M/uL (3.86-4.86)
[2020-12-28 14:58] LABS: Protime INR 0.97
--- NOTE | 2020-12-28 15:06 | RAD REPORT ---
EXAM DESCRIPTION: RAD - Chest Single View - 12/28/2020 2:59 pm CLINICAL HISTORY: right sided weakness COMPARISON: Chest Pa And Lat (2 Views) dated 09/07/2020; Chest Pa And Lat (2 Views) dated 10/01/2018; C hest Single View dated 08/23/2018; Chest Pa And Lat (2 Views) dated 02/06/2018 FINDINGS: Lines: None. Lungs: No evidence of edema or pneumonia. Pleural: No significant pleural effusions or pneumothorax. Cardiac: The heart size is within normal limits. Bones: No acute fractures. Other: IMPRESSION: No acute cardiopulmonary disease.
[2020-12-28 15:39] LABS: Urine Blood Negative (Negative); Urine Glucose Negative (Negative); Urine Protein Negative (Negative); Urine Specific Gravity 1.025 (1.005-1.030)
[2020-12-28] MEDS ORDERED: ASPIRIN 81 MG CHEWABLE TABLET ONE (16:15)
[2020-12-28] MEDS ORDERED: NA CHLORIDE 0.9% 1,000 ML ONE (16:16)
[2020-12-28] MEDS ORDERED: FOLIC ACID 5 MG/ML VIAL ONE (16:16)
[2020-12-28 16:19] LABS: Potassium 3.9 mmol/L (3.5-5.1)
--- NOTE | 2020-12-28 17:14 | P.HP ---
Certification for Inpatient Patient admitted to: Observation With expected LOS: <2 Midnights Practitioner: I am a practitioner with admitting privileges, knowledge of patient current condition, hospital course, and medical plan of care. Services: Services provided to patient in accordance with Admission requirements found in Title 42 Section 412.3 of the Code of Federal Regulations Patient History Date of Service: 12/28/20 Reason for admission: R facial and arm weakness/numbness History of Present Illness: 60-year-old female, PMH: Depression, migraines, [place], COPD, hypertension, hyperlipidemia, chronic back pain. Presents to the ED several hours after onset of headache associated with oral tingling sensation which progressed into the right facial paresthesias/weakness and eventually right arm weakness and paresthesias. This occurred around 9 AM on 12/28. She also reported over the last week she has been having difficulty speakingmainly related to language, described as she loses her train of thought midsentence, has to stop in 3 think of what she is trying to say. 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 She also reports for several months she has intermittent/rare occasions where she may have difficulty swallowing foodfeels as though gets stuck in her throat at times. She otherwise reports she has been in her usual state of health, no significant changes lately, no recent infection, no recent change in her medications. In the ED, she was noted to still have some mild right facial paresthesias, right upper extremity weakness and slight paresthesia. She stated she otherwise felt fine. CT head was negative. ER provider is requesting observation for further evaluation/management. MRI ordered, however patient has a back stimulator and has been told she cannot have an MRI. Allergies Penicillins Allergy (Intermediate, Verified 11/18/15 08:38) Hives levofloxacin [From Levaquin] Allergy (Verified 11/18/15 08:38) Hives/Rash, hypotension Home Medications: Tizanidine [Zanaflex*] 2 mg PO TID 01/01/16 Duloxetine HCl [Cymbalta] 60 mg PO BID 08/23/18 Gabapentin 600 mg PO TID 08/23/18 Hydromorphone [Dilaudid*] 4 mg PO TID 08/23/18 Rosuvastatin Calcium 5 mg PO BEDTIME 06/27/19 Valsartan 160 mg PO DAILY 08/23/18 Sumatriptan [Imitrex*] 25 mg PO DAILY PRN #30 tab 08/24/18 Topiramate [Topamax*] 25 mg PO BEDTIME #30 tab 08/24/18 - Past Medical/Surgical History Diabetic: Yes -: Sleep apnea -: Depression -: COPD -: 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 moist/pink, Sclerae nonicteric Neck: No LAD Respiratory: Clear to auscultation bilaterally, Normal air movement Cardiovascular: No edema, Regular rate/rhythm, No murmurs Capillary refill: <2 Seconds Gastrointestinal: Soft and benign, Non-distended, No tenderness Musculoskeletal: No erythema, No tenderness (I) Integumentary: No rashes, No significant lesion Neurological: Normal speech, Normal affect, Abnormal strength (4/5 RUE), Abnormal sensation (R lower face with decreased sensation) - Studies Laboratory Data (last 24 hrs) 12/28/20 14:37: PT 11.2, INR 0.97, APTT 38.3 H 12/28/20 14:37: WBC 6.50, Hgb 13.1, Hct 40.6, Plt Count 176 12/28/20 14:37: Sodium 146 H, Potassium 3.9, BUN 12, Creatinine 0.83, Glucose 86 Assessment and Plan - Advance Directives Does patient have a Living Will: No Does patient have a Durable POA for Healthcare: No Physician Review Additional Text: Problem list New onset of right facial paresthesia, right upper extremity weakness, concerning for stroke Palpitations, chronic COPD, chronic Hypertension Hyperlipidemia Depression Migraine headaches Obstructive sleep apnea CT head in ED negative for acute process Cannot rule out stroke, MRI ordered, however patient states she is unable to get MRI done due to back stimulator ED provider spoke with patient's neurologist, Dr. Corbett -who will see the patient in consult Will obtain CTA head Ultrasound of carotids ordered Monitor on telemetry, patient does report chronic history of palpitations, with more intensity lately. She has worn a heart monitor at home before, has been told nothing to worry about in the past already with some improvement of her symptoms. vitals ok aspirin, folic acid, statin confirm home meds, restart as appropriate Code: full Dispo: anticipate dc home in 24-48hrs Time Spent Managing Pts Care (In Minutes): 60
--- NOTE | 2020-12-28 17:31 | ER ---
Nurse's Notes [facility] Name: Abida Garza Age: 60 yrs Sex: Female : 1960 Arrival Date: 12/28/2020 Time: 14:25 Bed 14 Private MD: Diagnosis: Cerebral infarction, unspecified Presentation: 12/28 14:21 Chief complaint: Patient states: started at 0900 this morning, started with a headache iw and right sided facial numbness, now she has weakness in her right arm. Coronavirus screen: At this time, the client does not indicate any symptoms associated with coronavirus-19. Ebola Screen: Patient negative for fever greater than or equal to 101.5 degrees Fahrenheit, and additional compatible Ebola Virus Disease symptoms Patient denies exposure to infectious person. Patient denies travel to an Ebola-affected area in the 21 days before illness onset. No symptoms or risks identified at this time. Initial Sepsis Screen: Does the patient meet any 2 criteria? No. Patient's initial sepsis screen is negative. Does the patient have a suspected source of infection? No. Patient's initial sepsis screen is negative. Risk Assessment: Do you want to hurt yourself or someone else? Patient reports no desire to harm self or others. Onset of symptoms was December 28, 2020 at 09:00. 14:21 Method Of Arrival: Wheelchair iw 14:21 Acuity: BALDO 2 iw 15:08 An acute neurological deficit is present. ap3 Triage Assessment: 16:44 The onset of the patients symptoms was December 28, 2020 at 10:00. General: Appears ap3 comfortable, Behavior is calm, cooperative. 16:44 Neuro: Reports numbness in right arm \T\ right side of face. ap3 Stroke Activation: Symtpom onset >3 hours and < 6 hours Physician: Stroke Attending; Name: ; Notified At: ; Arrived At: Physician: Chief Stroke Resident; Name: ; Notified At: ; Arrived At: Physician: Stroke Resident; Name: ; Notified At: ; Arrived At: Physician: ED Attending; Name: ; Notified At: ; Arrived At: Physician: ED Resident; Name: ; Notified At: ; Arrived At: Historical: - Allergies: 14:35 Levaquin; iw 14:35 PENICILLINS; iw - Home Meds: 14:43 gabapentin 600 mg Oral tab 1 tab every 6 hours [Active]; hydromorphone 4 mg Oral tab 1 ss tab three times a day [Active]; topiramate 100 mg oral tab [Active]; rosuvastatin 5 mg Oral tab 1 tab nightly [Active]; prednisone 10 mg Oral tab [Active]; mirtazapine 15 mg Oral tab [Active]; duloxetine 60 mg Oral cpDR 1 cap twice a day [Active]; ProAir HFA inhalation [Active]; budesonide-formoterol 160-4.5 mcg/actuation inhalation HFAA 2 puffs 2 times per day [Active]; - PMHx: 14:35 Asthma; chronic back pain; COPD; Depression; High Cholesterol; Hypertension; Sleep iw Apnea; - Immunization history:: Adult Immunizations unknown, Client reports having NOT received the Covid vaccine. - Social history:: Smoking status: unknown. Screenin:07 Abuse screen: Denies threats or abuse. Nutritional screening: No deficits noted. ap3 Tuberculosis screening: No symptoms or risk factors identified. Fall Risk No fall in past 12 months (0 pts). Secondary diagnosis (15 points) possible stroke. IV access (20 points). Ambulatory Aid- Crutches/Cane/Walker (15 pts). Gait- Weak (10 pts.). Mental Status- Oriented to own ability (0 pts). Total Padilla Fall Scale indicates High Risk Score (45 or more points). Fall prevention measures have been instituted. Side Rails Up X 2 Placed Close to Nursing Station Frequent Obs/Assessments Occuring Family Present and informed to notify staff if the need to leave the bedside As available patient and family educated on Fall Prevention Program and Strategies. Assessment: 14:48 VAN Scoring: Arm Drift: Minor drift Visual Disturbance: No visual disturbance noted. ap3 Aphasia: No aphasia noted. Neglect: No neglect noted. Patient has been NPO before screening. The patient is alert, and able to follow commands. The patient does not exhibit slurred or garbled speech. The patient is not exhibiting difficulty speaking. The patient does not exhibit difficulty understanding words. The patient is able to swallow own secretions with no drooling or need for suction. Patient tolerated one teaspoon of water. No drooling, immediate coughing, gurgling, or clearing of the throat was noted. The patient tolerated 90mL of water. No drooling, immediate coughing, gurgling, or clearing of the throat was noted. The patient passed the bedside swallow screening. Oral medications may be given as ordered. Contact Physician for further diet orders. Provider notified of bedside swallow screening results: Amauri BOJORQUEZ. T-PA (Activase) Screening: Indications: Definite evidence of stroke, ischemic, embolic, or hypertensive: Yes. Contraindications: Patient reports onset of signs and symptoms of stroke greater than 6 hours ago: Yes. Pain: Denies pain. Neuro: No deficits noted. 17:54 Reassessment: Patient and/or family updated on plan of care and expected duration. Pain ap3 level reassessed. Patient is alert, oriented x 3, equal unlabored respirations, skin warm/dry/pink. Vital Signs: 15:44 BP 121 / 74; Pulse 72; Resp 18; Pulse Ox 95% ; ap3 16:45 BP 110 / 69; Pulse 64; Pulse Ox 100% ; ap3 17:55 BP 110 / 66; Pulse 75; Resp 18; Pulse Ox 100% on R/A; ap3 NIH Stroke Scale Scores: 14:28 NIHSS Score: 2 jmm 15:09 NIHSS Score: 3 ap3 ED Course: 14:25 Patient arrived in ED. ds1 14:35 Triage completed. iw 14:35 CT Stroke Brain w/o Contrast In Process Unspecified. EDMS 14:38 Katerin South, RN is Primary Nurse. ap3 14:43 Arm band placed on right wrist. ss 14:48 Amauri Shahid PA is PHCP. jmm 14:48 Bud Quijano MD is Attending Physician. jmm 15:00 Stroke CXR 1 View In Process Unspecified. EDMS 15:32 COVID swab sent to lab. ap3 16:43 Patient has correct armband on for positive identification. Placed in gown. Bed in low ap3 position. Call light in reach. Side rails up X2. Adult w/ patient. warranty coordinator on. Pulse ox on. NIBP on. Warm blanket given. 17:30 Brock Toledo MD is Hospitalizing Provider. jmm 17:35 Head angio In Process Unspecified. EDMS 20:11 No provider procedures requiring assistance completed. Patient admitted, IV remains in em place. Administered Medications: 15:31 Drug: NS 0.9% 1000 ml Route: IV; Rate: 1 bolus; Site: right antecubital; ap3 17:56 Follow up: IV Status: Completed infusion ap3 15:32 Drug: Aspirin Chewable Tablet 324 mg Route: PO; ap3 17:56 Follow up: Response: No adverse reaction ap3 15:32 Drug: foLIC Acid 1 mg Route: IVPB; Site: right antecubital; ap3 17:56 Follow up: IV Status: Completed infusion ap3 Point of Care Testing: Blood Glucose: 15:09 Blood Glucose: 73 mg/dL; ap3 Ranges: Outcome: 17:30 Decision to Hospitalize by Provider. [facility] 20:11 Patient left the ED. dc2 20:11 Admitted to Med/surg em 20:11 Condition: stable 20:11 Instructed on the need for admit, Demonstrated understanding of instructions. NIH Stroke Scale - NIH Stroke Score Date: 12/28/2020 Time: 14:28 Total Score = 2 1a. Level of Consciousness (LOC) - 0(Alert) 1b. Level of Consciousness (LOC) (Month \T\ Age) - 0(Both) 1c. LOC Commands (Open \T\ Closes Eyes/Fender Mechanic) - 0(Both) 2. Best Gaze (Lateral Gaze Paresis) - 0(Normal) 3. Visual Field Loss - 0(No visual loss) 4. Facial Palsy - 0(Normal) 5a. Left Arm: Motor (10-second hold) - 0(No drift) 5b. Right Arm: Motor (10-second hold) - 1(Drift) 6a. Left Leg: Motor (5-second hold - always test supine) - 0(No drift) 6b. Right Leg: Motor (5-second hold - always test supine) - 0(No drift) 7. Limb Ataxia (finger/nose \T\ heel/fuentes - test with eyes open) - 0(Absent) 8. Sensory Loss (pinprick arms/legs/face) - 1(Mild to moderate loss) 9. Best Language: Aphasia (description/naming/reading) - 0(No aphasia) 10. Dysarthria (speech clarity - read or repeat words) - 0(Normal) 11. Extinction and Inattention (visual/tactile/auditory/spatial/personal) - 0(No abnormality) Initials: rohit NIH Stroke Scale - NIH Stroke Score Date: 12/28/2020 Time: 15:09 Total Score = 3 1a. Level of Consciousness (LOC) - 0(Alert) 1b. Level of Consciousness (LOC) (Month \T\ Age) - 0(Both) 1c. LOC Commands (Open \T\ Closes Eyes/Fender Mechanic) - 0(Both) 2. Best Gaze (Lateral Gaze Paresis) - 0(Normal) 3. Visual Field Loss - 0(No visual loss) 4. Facial Palsy - 0(Normal) 5a. Left Arm: Motor (10-second hold) - 0(No drift) 5b. Right Arm: Motor (10-second hold) - 1(Drift) 6a. Left Leg: Motor (5-second hold - always test supine) - 0(No drift) 6b. Right Leg: Motor (5-second hold - always test supine) - 0(No drift) 7. Limb Ataxia (finger/nose \T\ heel/fuentes - test with eyes open) - 1(Present in one limb) 8. Sensory Loss (pinprick arms/legs/face) - 1(Mild to moderate loss) 9. Best Language: Aphasia (description/naming/reading) - 0(No aphasia) 10. Dysarthria (speech clarity - read or repeat words) - 0(Normal) 11. Extinction and Inattention (visual/tactile/auditory/spatial/personal) - 0(No abnormality) Initials: ap3 Signatures: Dispatcher [employer] Amauri Guthrie PA PA jmm Munoz, Edgar, RN Tonia Betancourt ds1 Ryanne Sullivan RN RN iw Smirch, Shelby, RN RN ss Prokisch, Amanda, RN RN ap3 Sayra Irene RN RN dc2 Corrections: (The following items were deleted from the chart) 15: 14:48 NIHSS Score: 3 ap3 ap3
--- NOTE | 2020-12-28 17:32 | EDPHYS ---
Physician Documentation [facility] Name: Abida Garza Age: 60 yrs Sex: Female : 1960 Arrival Date: 12/28/2020 Time: 14:25 Bed 14 Private MD: Bud Glasgow HPI: 12/28 14:28 This 60 yrs old Female presents to ER via Wheelchair with complaints of S/S jmm of Possible Stroke. 14:28 The patient's problem is reported as weakness, in the right upper extremity, in the jmm right side of face. Onset: The symptoms/episode began/occurred acutely, this morning, at 09:00. Duration: This was a single incident. The symptoms are alleviated by nothing. The symptoms are aggravated by nothing. This is a 60-year-old female with history of asthma, chronic back pain, COPD, depression, hyperlipidemia the presents emerged department with complaints of right-sided facial numbness beginning this morning around 9 AM. Patient states that symptoms would not resolve so she called her to go to the ER. In route to the ER she developed right arm weakness. Patient denies right leg weakness. Patient also states she has had intermittent episodes of difficulty with speech over the past week. Historical: - Allergies: 14:35 Levaquin; iw 14:35 PENICILLINS; iw - Home Meds: 14:43 gabapentin 600 mg Oral tab 1 tab every 6 hours [Active]; hydromorphone 4 mg Oral tab 1 ss tab three times a day [Active]; topiramate 100 mg oral tab [Active]; rosuvastatin 5 mg Oral tab 1 tab nightly [Active]; prednisone 10 mg Oral tab [Active]; mirtazapine 15 mg Oral tab [Active]; duloxetine 60 mg Oral cpDR 1 cap twice a day [Active]; ProAir HFA inhalation [Active]; budesonide-formoterol 160-4.5 mcg/actuation inhalation HFAA 2 puffs 2 times per day [Active]; - PMHx: 14:35 Asthma; chronic back pain; COPD; Depression; High Cholesterol; Hypertension; Sleep iw Apnea; - Immunization history:: Adult Immunizations unknown, Client reports having NOT received the Covid vaccine. - Social history:: Smoking status: unknown. ROS: 14:28 Constitutional: Negative for fever, chills, and weight loss, Cardiovascular: Negative [facility] for chest pain, palpitations, and edema, Respiratory: Negative for shortness of breath, cough, wheezing, and pleuritic chest pain. 14:28 Neuro: Positive for numbness. 14:28 All other systems are negative. Exam: 14:28 Radiologist reports: Negative [facility] 14:28 Constitutional: This is a well developed, well nourished patient who is awake, alert, and in no acute distress. Head/Face: atraumatic. Eyes: EOMI, no conjunctival erythema appreciated ENT: Moist Mucus Membranes Neck: Trachea midline, Supple Chest/axilla: Normal chest wall appearance and motion. Cardiovascular: Regular rate and rhythm. No edema appreciated Respiratory: Normal respirations, no respiratory distress appreciated Abdomen/GI: Non distended, soft Back: Normal ROM Skin: General appearance color normal 14:28 Musculoskeletal/extremity: ROM: intact in all extremities. 14:28 Skin: Appearance: Color: normal in color. 14:28 Neuro: Orientation: is normal, Mentation: is normal, Memory: is normal. 14:28 Psych: Behavior/mood is pleasant, cooperative. Vital Signs: 15:44 BP 121 / 74; Pulse 72; Resp 18; Pulse Ox 95% ; ap3 16:45 BP 110 / 69; Pulse 64; Pulse Ox 100% ; ap3 17:55 BP 110 / 66; Pulse 75; Resp 18; Pulse Ox 100% on R/A; ap3 NIH Stroke Scale Scores: 14:28 NIHSS Score: 2 [facility] 15:09 NIHSS Score: 3 ap3 MDM: 14:48 Patient medically screened. [facility] 17:29 Data reviewed: vital signs, nurses notes. Counseling: I had a detailed discussion with rohit the patient and/or guardian regarding: the historical points, exam findings, and any diagnostic results supporting the discharge/admit diagnosis, lab results, radiology results, the need for further work-up and treatment in the hospital. 17:29 ED course: I discussed the patient with for consult. I discussed the patient [facility] with Dr. Toledo excepted the patient for admission.. 12/28 14:32 Order name: Basic Metabolic Panel; Complete Time: 16:22 iw 12/28 14:32 Order name: CBC with Diff; Complete Time: 15:39 iw 12/28 14:32 Order name: Protime (+inr); Complete Time: 15:39 12/28 14:32 Order name: Ptt, Activated; Complete Time: 15:39 12/28 14:48 Order name: Glucose, Ancillary Testing; Complete Time: 14:49 EDMS 12/28 14:56 Order name: COVID-19 SARS RT PCR (Document "Date of Onset" if Symptomatic); Complete [facility] Time: 17:25 12/28 14:27 Order name: CT Stroke Brain w/o Contrast; Complete Time: 14:49 12/28 14:32 Order name: Stroke CXR 1 View; Complete Time: 15:39 12/28 14:51 Order name: MRI Stroke Protocol [facility] 12/28 15:38 Order name: Urine Dipstick-Ancillary; Complete Time: 15:45 EDMS 12/28 17:18 Order name: Head angio; Complete Time: 06:04 [facility] 12/28 14:32 Order name: EKG; Complete Time: 14:32 12/28 14:32 Order name: Accucheck; Complete Time: 14:38 12/28 14:32 Order name: Cardiac monitoring; Complete Time: 14:38 12/28 14:32 Order name: EKG - Nurse/Tech; Complete Time: 14:38 12/28 14:32 Order name: IV Saline Lock; Complete Time: 14:38 12/28 14:32 Order name: Labs collected and sent; Complete Time: 14:38 12/28 14:32 Order name: NPO; Complete Time: 14:38 12/28 14:32 Order name: O2 Per Protocol; Complete Time: 14:38 12/28 14:32 Order name: O2 Sat Monitoring; Complete Time: 14:38 12/28 14:32 Order name: Stroke Swallow Screen; Complete Time: 15:07 12/28 15:00 Order name: Urine Dipstick-Ancillary (obtain specimen); Complete Time: 15:32 [facility] 12/28 17:09 Order name: CONS Physician Consult EDMS Administered Medications: 15:31 Drug: NS 0.9% 1000 ml Route: IV; Rate: 1 bolus; Site: right antecubital; ap3 17:56 Follow up: IV Status: Completed infusion ap3 15:32 Drug: Aspirin Chewable Tablet 324 mg Route: PO; ap3 17:56 Follow up: Response: No adverse reaction ap3 15:32 Drug: foLIC Acid 1 mg Route: IVPB; Site: right antecubital; ap3 17:56 Follow up: IV Status: Completed infusion ap3 Point of Care Testing: Blood Glucose: 15:09 Blood Glucose: 73 mg/dL; ap3 Ranges: Critical Glucose Levels:Adult <50 mg/dl or >400 mg/dl <40 mg/dl or >180 mg/dl Disposition: 12/29 11:39 Co-signature as Attending Physician, Bud Quijano MD I agree with the assessment and wes plan of care. Disposition Summary: 12/28/20 17:30 Hospitalization Ordered Hospitalization Status: Inpatient Admission [facility] Provider: Brock Toledo Location: Telemetry/MedSurg (Inpatient) jm Condition: Stable jmm Problem: new jmm Symptoms: are unchanged jmm Bed/Room Type: Standard [facility] Room Assignment: 225(12/28/20 18:37) bd Diagnosis - Cerebral infarction, unspecified [facility] Forms: - Medication Reconciliation Form jmm - SBAR form [facility] NIH Stroke Scale - NIH Stroke Score Date: 12/28/2020 Time: 14:28 Total Score = 2 1a. Level of Consciousness (LOC) - 0(Alert) 1b. Level of Consciousness (LOC) (Month \\T\\ Age) - 0(Both) 1c. LOC Commands (Open \\T\\ Closes Eyes/Cotton Classer Aide) - 0(Both) 2. Best Gaze (Lateral Gaze Paresis) - 0(Normal) 3. Visual Field Loss - 0(No visual loss) 4. Facial Palsy - 0(Normal) 5a. Left Arm: Motor (10-second hold) - 0(No drift) 5b. Right Arm: Motor (10-second hold) - 1(Drift) 6a. Left Leg: Motor (5-second hold - always test supine) - 0(No drift) 6b. Right Leg: Motor (5-second hold - always test supine) - 0(No drift) 7. Limb Ataxia (finger/nose \\T\\ heel/fuentes - test with eyes open) - 0(Absent) 8. Sensory Loss (pinprick arms/legs/face) - 1(Mild to moderate loss) 9. Best Language: Aphasia (description/naming/reading) - 0(No aphasia) 10. Dysarthria (speech clarity - read or repeat words) - 0(Normal) 11. Extinction and Inattention (visual/tactile/auditory/spatial/personal) - 0(No abnormality) Initials: rohit NIH Stroke Scale - NIH Stroke Score Date: 12/28/2020 Time: 15:09 Total Score = 3 1a. Level of Consciousness (LOC) - 0(Alert) 1b. Level of Consciousness (LOC) (Month \\T\\ Age) - 0(Both) 1c. LOC Commands (Open \\T\\ Closes Eyes/Cotton Classer Aide) - 0(Both) 2. Best Gaze (Lateral Gaze Paresis) - 0(Normal) 3. Visual Field Loss - 0(No visual loss) 4. Facial Palsy - 0(Normal) 5a. Left Arm: Motor (10-second hold) - 0(No drift) 5b. Right Arm: Motor (10-second hold) - 1(Drift) 6a. Left Leg: Motor (5-second hold - always test supine) - 0(No drift) 6b. Right Leg: Motor (5-second hold - always test supine) - 0(No drift) 7. Limb Ataxia (finger/nose \\T\\ heel/fuentes - test with eyes open) - 1(Present in one limb) 8. Sensory Loss (pinprick arms/legs/face) - 1(Mild to moderate loss) 9. Best Language: Aphasia (description/naming/reading) - 0(No aphasia) 10. Dysarthria (speech clarity - read or repeat words) - 0(Normal) 11. Extinction and Inattention (visual/tactile/auditory/spatial/personal) - 0(No abnormality) Initials: ap3 Signatures: Dispatcher [employer] Adele Manzanares Corey, MD MD cha Mickail, Joel, PA PA Ryanne Aguilar RN RN iw Smirch, Shelby, RN RN ss Prokisch, Amanda, RN RN ap3 Corrections: (The following items were deleted from the chart) 12/28 18:37 17:30 rohit manuel
--- NOTE | 2020-12-28 17:46 | RAD REPORT ---
EXAM DESCRIPTION: CT - Head angio - 12/28/2020 5:34 pm CLINICAL HISTORY: possible stroke COMPARISON: Ct Stroke Brain Wo Cont dated 12/28/2020; Head Brain Wo Cont dated 07/09/2020 TECHNIQUE: CT angiography of the head was performed with MIPs. All CT scans are performed using dose optimization technique as appropriate and may include automated exposure control or mA/KV adjustment according to patient size. FINDINGS: Anterior circulation: No aneurysm or large vessel occlusion. No hemodynamically significant stenosis. No arteriovenous malf ormation identified. Posterior circulation: No aneurysm or large vessel occlusion. No hemodynamically significant stenosis. No arteriovenous malf ormation identified. IMPRESSION: No significant flow abnormality is detected.
[2020-12-28 20:17] VITALS: BMI 38.2
[2020-12-28] MEDS ORDERED: ONDANSETRON 4 MG/2 ML VIAL IV PRN (20:40)
[2020-12-28] MEDS ORDERED: NA CHLORIDE 0.9% 1,000 ML IV SCH (20:40)
[2020-12-28] MEDS ORDERED: ATORVASTATIN 20 MG TAB PO SCH (21:00)
[2020-12-28 21:18] LABS: Urine Appearance CLEAR (Clear); Urine Bilirubin NEGATIVE (Negative); Urine Blood NEGATIVE (Negative); Urine Color YELLOW (Yellow); Urine Glucose NEGATIVE (Negative); Urine Protein NEGATIVE (Negative); Urine Specific Gravity >=1.030 (1.005-1.030); Urine pH 7.5 (5.0-7.0)
[2020-12-28 21:32] LABS: Urine Microscopic Reflex NO UMIC
[2020-12-28 21:49] LABS: Thyroid Stimulating Hormone 0.495 uIU/mL (0.360-3.740)
[2020-12-28] MEDS ORDERED: ACETAMINOPHEN 500 MG TAB ONE (22:19)
[2020-12-29] MEDS ORDERED: TOPIRAMATE 25 MG TAB ONE (00:28)
[2020-12-29 06:18] LABS: Absolute Lymphocytes (CBC) 2.1 K/uL (0.7-4.9); Hematocrit 38.6 % (36.0-45.0); Lymphocytes % 42.1 % (15.3-44.8); MPV 9.3 fL (7.6-11.3); RBC Red Blood Cell Count 4.14 M/uL (3.86-4.86)
[2020-12-29 06:44] LABS: Albumin 2.7 g/dL (3.4-5.0); Bilirubin Total 0.4 mg/dL (0.2-1.0); Magnesium 2.2 mg/dL (1.8-2.4); Potassium 4.8 mmol/L (3.5-5.1); Protein, Total 6.5 g/dL (6.4-8.2)
--- NOTE | 2020-12-29 07:33 | RAD REPORT ---
EXAM DESCRIPTION: US - CP - 12/28/2020 10:41 pm CLINICAL HISTORY: possible stroke, eval flow COMPARISON: Carotid Artery Bilateral dated 05/01/2019 TECHNIQUE: Real-time sonographic evaluation of both carotid systems was performed. Doppler interroga tion was performed with waveform tracing bilaterally. FINDINGS: Normal high resistance waveforms are noted in both external carotid arteries. The common c arotid arteries and internal carotid arteries show normal low resistance waveforms. No significant plaque formation is seen. Peak systolic and end diastolic velocity values and the ICA/ CCA ratios are in the non-hemodynamically significant range. Antegrade flow seen in both vertebral arteries. IMPRESSION: No significant atherosclerotic changes noted. No evidence of a hemodynamically significant stenosis.
[2020-12-29 08:28] VITALS: O2SAT 95
[2020-12-29] MEDS ORDERED: FOLIC ACID 1 MG TABLET PO SCH (09:00)
[2020-12-29] MEDS ORDERED: ASPIRIN 81 MG CHEWABLE TABLET PO SCH (09:00)
[2020-12-29] MEDS ORDERED: ENOXAPARIN 40 MG/0.4 ML SQ SCH (09:00)
[2020-12-29] MEDS ORDERED: VALSARTAN 160 MG TAB PO SCH (09:15)
--- NOTE | 2020-12-29 11:46 | P.DS ---
Admission Date: 12/28/20 Discharge Date: 12/29/20 Disposition: ROUTINE DISCHARGE Discharge Condition: FAIR Reason for Admission: R facial and arm weakness/numbness - Problems (1) Left facial numbness Current Visit: Yes Status: Acute (2) Migraine Current Visit: Yes Status: Acute (3) Hyperlipidemia Current Visit: Yes Status: Acute (4) Obstructive sleep apnea Current Visit: Yes Status: Acute (5) Obesity Current Visit: Yes Status: Acute Brief History of Present Illness: 60-year-old female, PMH: Depression, migraines, PAULINA, COPD, hypertension, hyperlipidemia, chronic back pain. Presented to the ED several hours after onset of headache associated with oral tingling sensation which progressed into the right facial paresthesias/weakness and eventually right arm weakness and paresthesias. This occurred around 9 AM on 12/28. She also reported over the last week she has been having difficulty speakingmainly related to language, described as she loses her train of thought midsentence, has to stop in 3 think of what she is trying to say. 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 She also reports for several months she has intermittent/rare occasions where she may have difficulty swallowing foodfeels as though gets stuck in her throat at times. She otherwise reports she has been in her usual state of health, no significant changes lately, no recent infection, no recent change in her medications. In the ED, she was noted to still have some mild right facial paresthesias, right upper extremity weakness and slight paresthesia. She stated she otherwise felt fine. CT head was negative. Patient hospitalized for further management. Hospital Course: Patient placed under observation on the medical floor. The patient noted the facial numbness and tingling sensation improve with pain medications. CT head negative any acute intracranial disease. Could not performed MRI because patient has a spinal cord stimulator which precludes MRI. Patient seen by PT and ambulating without issues. Case discussed with her neurologist Dr. Corbett who suspect complex migraine. Patient is deemed stable for discharge. She is maintained on aspirin and Lipitor. She will follow with Dr. Corbett within 1-2 w eeks. Vital Signs/Physical Exam: Temp Pulse Resp BP Pulse Ox 97.4 F 74 18 127/70 94 12/29/20 08:00 12/29/20 08:00 12/29/20 08:00 12/29/20 08:00 12/29/20 08:00 General: Alert, In no apparent distress, Oriented x2 HEENT: Mucous membr. moist/pink Neck: JVD not distended Respiratory: Clear to auscultation bilaterally, Normal air movement Cardiovascular: Regular rate/rhythm, Normal S1 S2 Gastrointestinal: Soft and benign, Non-distended, No tenderness Musculoskeletal: No swelling Integumentary: No rashes Neurological: Normal strength at 5/5 x4 extr Laboratory Data at Discharge: WBC 5.00 K/uL (4.3-10.9) D 12/29/20 05:41 Hgb 12.6 g/dL (12.0-15.0) 12/29/20 05:41 Hct 38.6 % (36.0-45.0) 12/29/20 05:41 Plt Count 162 K/uL (152-406) 12/29/20 05:41 PT 11.2 SECONDS (9.5-12.5) 12/28/20 14:37 INR 0.97 12/28/20 14:37 APTT 38.3 SECONDS (24.3-36.9) H 12/28/20 14:37 Sodium 144 mmol/L (136-145) 12/29/20 05:41 Potassium 4.8 mmol/L (3.5-5.1) 12/29/20 05:41 BUN 10 mg/dL (7-18) 12/29/20 05:41 Creatinine 0.86 mg/dL (0.55-1.3) 12/29/20 05:41 Glucose 97 mg/dL (74-106) 12/29/20 05:41 Magnesium 2.2 mg/dL (1.8-2.4) 12/29/20 05:41 Total Bilirubin 0.4 mg/dL (0.2-1.0) 12/29/20 05:41 AST 7 U/L (15-37) L 12/29/20 05:41 ALT 12 U/L (12-78) 12/29/20 05:41 Alkaline Phosphatase 77 U/L (45-117) 12/29/20 05:41 Triglycerides 122 mg/dL (<150) 12/29/20 05:41 Cholesterol 129 mg/dL (<200) 12/29/20 05:41 HDL Cholesterol 49 mg/dL (40-60) 12/29/20 05:41 Cholesterol/HDL Ratio 2.63 12/29/20 05:41 Home Medications: Tizanidine [Zanaflex*] 2 mg PO TID 01/01/16 Duloxetine HCl [Cymbalta] 60 mg PO BID 08/23/18 Gabapentin 600 mg PO TID 08/23/18 Hydromorphone [Dilaudid*] 4 mg PO TID 08/23/18 Rosuvastatin Calcium 5 mg PO BEDTIME 08/23/18 Valsartan 160 mg PO DAILY 08/23/18 Topiramate [Topamax*] 25 mg PO BEDTIME #30 tab 08/24/18 Aspirin [Aspirin EC 81 MG] 81 mg PO DAILY #30 tablet. 12/29/20 Atorvastatin Calcium [Lipitor] 20 mg PO BEDTIME #30 tab 12/29/20 Folic Acid 1 mg PO DAILY #30 tablet 12/29/20 New Medications: Aspirin [Aspirin EC 81 MG] 81 mg PO DAILY #30 tablet. Folic Acid 1 mg PO DAILY #30 tablet Atorvastatin Calcium [Lipitor] 20 mg PO BEDTIME #30 tab Diet: AHA Activity: Ad amadou Followup: Unknown,U [Primary Care Provider] - Juan Corbett MD [ACTIVE - CAN ADMIT] - 1 Week
--- NOTE | 2020-12-29 11:48 | EKG ---
Test Date: 2020-12-28 Test Time: 14:42:53 Rn Relief Charge: ALP MEASUREMENT RESULTS: Intervals: Rate: 71 MT: 206 QRSD: 82 QT: 390 QTc: 423 [place]: P: 71 MT: 206 QRS: 44 T: 72 INTERPRETIVE STATEMENTS: Normal sinus rhythm Low voltage QRS Nonspecific ST abnormality Abnormal ECG Compared to ECG 09/02/2018 19:00:01 Low QRS voltage now present ST (T wave) deviation now present T-wave abnormality no longer present Electronically Signed On 12-29-20 11:46:14 CDT by Deon Ugalde
--- NOTE | 2020-12-29 12:20 | ECHO ---
HEIGHT: 5 ft 4 in WEIGHT: 223 lb 0 oz DATE OF STUDY: 12/29/[address]: Brock Toledo MD 2-DIMENSIONAL: YES M.MODE: YES DOPPLER: YES COLOR FLOW: YES TDS: YES PORTABLE: DEFINITY: BUBBLE STUDY: DIAGNOSIS: STROKE CARDIAC HISTORY: CATHERIZATION: NO SURGERY: NO PROSTHETIC VALVE: NO PACEMAKER: NO MEASUREMENTS (cm) DIASTOLIC (NORMALS) SYSTOLIC (NORMALS) IVSd 0.8 (0.6-1.2) LA Diam 2.5 (1.9-4.0) LVEF 67% LVIDd 1.7 (3.5-5.7) LVIDs 1.1 (2.0-3.5) %FS 34% LVPWd 0.9 (0.6-1.2) Ao Diam (2.0-3.7) 2 DIMENSIONAL ASSESSMENT: RIGHT ATRIUM: NORMAL LEFT ATRIUM: NORMAL RIGHT VENTRICLE: NORMAL LEFT VENTRICLE: NORMAL TRICUSPID VALVE: NORMAL MITRAL VALVE: NORMAL PULMONIC VALVE: NORMAL AORTIC VALVE: NORMAL PERICARDIAL EFFUSION: NONE AORTIC ROOT: NORMAL LEFT VENTRICULAR WALL MOTION: DOPPLER/COLOR FLOW: COMMENTS: NORMAL LEFT VENTRICULAR SIZE AND FUNCTION. NO VEGETATION. NO THROMBUS. TECHNOLOGIST: LONNIE ARGUETA
[2020-12-29 12:23] VITALS: BP 139/62; TEMP 98.1
[2020-12-29] MEDS ORDERED: TIZANIDINE 4 MG TABLET PO SCH (14:00)
[2020-12-29] MEDS ORDERED: GABAPENTIN 300 MG CAP PO SCH (14:00)
[2020-12-29] MEDS ORDERED: HYDROMORPHONE ORAL 4 MG TAB PO SCH (14:00)
[2020-12-29] MEDS ORDERED: DULOXETINE 30 MG CAP PO SCH (21:00)
[2020-12-29] MEDS ORDERED: ATORVASTATIN 40 MG TAB PO SCH (21:00)
[2020-12-29] MEDS ORDERED: ROSUVASTATIN CALCIUM 5 MG PO SCH (21:00)
[2020-12-29] MEDS ORDERED: TOPIRAMATE 25 MG TAB PO SCH (21:00)
== END 2020-12-29 14:56 | disposition home or self-care (01) ==
LOC: ER 14:21 → ERHOLD 17:08 → 2ND 20:34
PROVIDERS: ADMIT Hospitalist; ATTEND Internal Medicine
DX: G81.91 Hemiplegia, unspecified affecting right dominant side (principal); G43.909 Migraine, unspecified, not intractable, without status migrainosus; R29.703 NIHSS score 3; J44.9 Chronic obstructive pulmonary disease, unspecified; I10 Essential (primary) hypertension; E78.5 Hyperlipidemia, unspecified; M54.9 Dorsalgia, unspecified; G89.29 Other chronic pain; R00.2 Palpitations; E66.9 Obesity, unspecified; F32.A Depression, unspecified; G47.33 Obstructive sleep apnea (adult) (pediatric); Z68.38 Body mass index [BMI] 38.0-38.9, adult; Z87.891 Personal history of nicotine dependence; Z20.822 Contact with and (suspected) exposure to COVID-19
CPT/HCPCS: 96365; 93005; 93306; 85025 ×2; 80048; 36415; 83735; 85610; 80061; 82947; 85730; 85652; 84443; 81003 ×2; 84439; 80053; 70496; 70450; 71045; 93880; 97161; 94760 ×2; 99285; 96366; U0003; Q9967; J1650; J7030 ×2; G0378 ×3

== ENCOUNTER 2024-10-14 11:36 | Emergency (ER) | payer OTHER ==
--- OUTSIDE RECORDS SUMMARY | 2024-10-14 11:41 | XMS REPORT | Continuity of Care Document ---
Author Name Unknown Address [address] [facility] [address] [place] [address] [facility] Address [address] [facility] [address] [place] [address] Care Team Providers Care Tongue Carrier Name Role Phone Kurt QUIROGA, [facility] Primary Care Physician Vee Raymond MD Attending Clinician [phone] VEE RAYMOND Attending Clinician Unavail able Pob, [facility] Main Attending Clinician Ronaldo Mckeon MD Attending Clinician RONALDO SHAH Attending Clinician Unavailab le Doctor Unassigned, [place] Attending Clinician U navailable Radiology Attending Clinician Unavailable Payers Payer Name Policy Type Policy Number Effective Date Expirati on Date Source [employer] MED[employer]ARE [employer]VANTAGE Medicare [id number] 2023 00:00:00 Problems Condition Name Condition Details Condition Category Status Onset Date Resolution Date Last Treatment Date Treating Clinician Comments Source Dysuria Dysuria Disease Active 05-02 00:00: 00 Marielena Britton Epic Cervical radiculopa thy Cervical radiculopa thy Disease Active 08-21 00:00: 00 Marielena Britton Epic Hyperlipid emia Hyperlipid emia Disease Active 08-21 00:00: 00 Mem[facility] Tobi Epic Hypertensi on Hypertensi on Disease Active 08-21 00:00: 00 Marielena Garcia Migraine Migraine Disease Active 08-21 00:00: 00 Marielena Garcia Morbid obesity Morbid obesity Disease Active 08-21 00:00: 00 Marielena Garcia Neck pain Neck pain Disease Active 08-21 00:00: 00 Marielena Garcia Rt facial numbness Rt facial numbness Disease Active 08-21 00:00: 00 Marielena Garcia Spinal cord stimulator status Spinal cord stimulator status Disease Active 08-21 00:00: 00 Marielena Garcia Insomnia Insomnia Disease Active 2022-02 00:00: 00 Marielena Garcia Acute urinary tract infection Acute urinary tract infection Disease Resolve d 05-02 00:00: 00 2024-09-26 00:00:00 2024-09-26 09:51:04 Marielena Garcia Sore throat Sore throat Disease Resolve d 08-13 00:00: 00 2023-12-20 00:00:00 2023-12-20 10:32:34 Marielena Britton Epic Streptococ brooke sore throat Streptococ brooke sore throat Disease Resolve d 08-13 00:00: 00 2023-12-20 00:00:00 2023-12-20 10:32:34 Marielena Garcia Abdominal pain Abdominal pain Disease Resolve d 2022-02 00:00: 00 2023-12-20 00:00:00 2023-12-20 10:32:34 Marielena Garcia Epistaxis Epistaxis Disease Resolve d 08-21 00:00: 00 2023-08-22 00:00:00 2023-08-22 11:13:58 Marielena Garcia Syncope Syncope Disease Resolve d 08-21 00:00: 00 2023-08-22 00:00:00 2023-08-22 11:13:58 Marielena Garcia Allergies, Adverse Reactions, Alerts Allergy Name Allergy Type Status Severity Reaction(s) Onset Date Inactive Date Treating Clinician Comments Source Codeine Propensi ty to adverse reaction s Active 03-07 00:00: 00 Mem[facility] Epic penicill in (Not Checked) Propensi ty to adverse reaction to drug Active 03-07 00:00: 00 Po Lora Penicill ins Drug Allergy Active 08-21 00:00: 00 [facility] Epic LEVOFLOX ACIN DRUG INGREDI Active 08-21 00:00: 00 MHEOUT PENICILL INS Drug Class Active 08-21 00:00: 00 MHEOUT Levoflox acin Allergy to substanc e Active 07-17 00:00: 00 [facility] Epic Penicill ins Propensi ty to adverse reaction to drug Inactiv e 07-17 00:00: 00 Po Lora NO KNOWN ALLERGIE S Drug Class Active [facility] ALLERGIE S NOT ON FILE SYSTEMIC Active MHEOUT penicill ins penicill ins Active [facility] Social History Social Habit Start Date Stop Date Quantity Comments Source Gender identity 2023-05-21 04:15:02 Identifies as female gender (finding) [facility] Sexual orientation [facility] ASSERTION Possible [facility] History of tobacco use Passive smoker [facility] Alcoholic beverage intake 2024-09-26 00:00:00 2024-09-26 00:00:00 Ex-drinker (finding) [facility] History of Social function 2024-09-26 00:00:00 2024-09-26 00:00:00 [facility] Cigarettes smoked current (pack per day) - Reported 2023-08-22 00:00:00 2023-08-22 00:00:00 [facility] Cigarette pack-years 2023-08-22 00:00:00 2023-08-22 00:00:00 [facility] Tobacco use and exposure 2023-08-22 00:00:00 2023-08-22 00:00:00 Smokeless tobacco non-user [facility] Sex 2023-05-21 04:15:02 2023-05-21 04:15:02 Female (finding) [facility] Sex Assigned At 1960 00:00:00 1960 00:00:00 [facility] Smoking Status Start Date Stop Date Source Tobacco smoking consumption unknown [facility] Ex-smoker 2023-08-22 00:00:00 2023-08-22 00:00:00 Caitie Manzoann [facility] Medications Ordered Medication Name Filled Medication Name Start Date Stop Date Current Medication? Ordering Clinician Indication Dosage Frequency Signature (SIG) Comments Components Source Ubrogepant (Ubrelvy) 100 MG tablet [id number] 09-18 00:00: 00 Yes 1{tbl} Q24H Take 1 tablet by mouth daily as needed for migraine. May repeat dose after 2 hours if symptoms persist. MAX 2 tablets per 24 hours. Marielena Britton Jose Qulipta 60 MG tablet [id number] 08-26 00:00: 00 Yes [id number] 60mg QD Take one tablet by mouth once daily. Marielena lópez [place] Symbicort 160 mcg-4.5 mcg/actuati on HFA aerosol inhaler 06-25 00:00: 00 Yes 2mcg/ac tuation Po [facility] prednisone 10 mg tablet 06-25 00:00: 00 Yes 1mg [facility] [place] cefuroxime axetil 500 mg tablet 06-25 00:00: 00 Yes 1mg Po [facility] gabapentin 600 mg tablet 1- 00:00: 00 Yes mg Po [place] rosuvastati n 10 mg tablet 1- 00:00: 00 Yes mg Po [place] Symbicort 160 mcg-4.5 mcg/actuati on HFA aerosol inhaler - 00:00: 00 Yes 1mcg/ac tuation Po Lora duloxetine 60 mg capsule,del ayed release 2023-02- 00:00: 00 Yes mg Po [facility] albuterol sulfate HFA 90 mcg/actuati on aerosol inhaler 2023-02- 00:00: 00 Yes mcg/act uation Po [facility] Ubrelvy 100 mg tablet 2023-02 2-18 00:00: 00 Yes mg Po [facility] hydromorpho ne 4 mg tablet 2023-02 2-16 00:00: 00 Yes mg Po Lora Rexulti 1 mg tablet 2023-02 2-03 00:00: 00 Yes mg Po [facility] valsartan 160 mg tablet 2023-02-18 00:00: 00 Yes mg Po [facility] pantoprazol e 40 mg tablet,al yed release 2023-02 1- 00:00: 00 Yes mg Po Lora Qulipta 60 MG tablet Qulipta 60 MG tablet 2023-02 00:00: 00 Yes [id number] 1{tbl} QD TAKE 1 TABLET BY MOUTH DAILY Marielena Britton [facility] Ubrogepant (Ubrelvy) 100 MG tablet Ubrogepant (Ubrelvy) 100 MG tablet 2023-02 00:00: 00 Yes TAKE 1 TABLET BY MOUTH NEEDED FOR MIGRIANE, MAY REPEAT DOSE AFTER 2 HOURS. MAX DOSE 200 MG PER 24 HOURS Marielena Britton [facility] rosuvastati n (Crestor) 10 MG tablet rosuvastati n (Crestor) 10 MG tablet 08-21 11:14: 13 Yes 10mg QD Take 10 mg by mouth 1 time each day. Marielena Britton [facility] HYDROmorpho ne (Dilaudid) 4 MG tablet HYDROmorpho ne (Dilaudid) 4 MG tablet 08-21 11:14: 13 Yes 4mg Q.5D Take 4 mg by mouth in the morning and 4 mg in the evening. Marielena Britton [facility] valsartan (Diovan) 160 MG tablet valsartan (Diovan) 160 MG tablet 08-21 11:14: 13 Yes 160mg QD Take 160 mg by mouth 1 time each day. Marielena Britton [facility] Qulipta 60 MG tablet Qulipta 60 MG tablet 08-21 00:00: 00 12-17 00:00 :00 No [id number] 1{tbl} QD Take 1 tablet by mouth 1 time each day. Marielena Britton [facility] Ubrelvy 100 MG tablet Ubrelvy 100 MG tablet 08-21 00:00: 00 12-17 00:00 :00 No 1{tbl} Q24H Take 1 tablet by mouth daily as needed (migraine) . Marielena Britton [facility] albuterol HFA 90 mcg/act inhaler albuterol HFA 90 mcg/act inhaler 6-21 00:00: 00 Yes 2{puff} Q6H Inhale 2 puffs every 6 hours if needed. Marielena Britton Epic DULoxetine (Cymbalta) [address] capsule DULoxetine (Cymbalta) [address] capsule 6-20 00:00: 00 Yes 1{capsu le} Q.5D Take 1 capsule by mouth in the morning and 1 capsule in the evening. Marielena Britton Epic Qulipta 60 mg oral tablet 2022-0218 17:22: 00 Yes = 1 tab, PO, Daily, # 30 tab, 5 Refill(s), [id number], 160.02, cm, 11/02/22 11:52:00 CDT, Height, 105.682, kg, 11/02/22 11:52:00 CDT, Weight Marielena Britton Ubrelvy 100 mg oral tablet 11-02 17:04: 00 Yes See Instructio ns, TAKE 1 TABLET BY MOUTH BY MOUTH NEEDED FOR MIGRAINE, MAY REPEAT DOSE AFTER 2 HOURS. MAX DOSE 200 MG PER 24 HOURS, # 8 tab, 1 Refill(s), Pharmacy: [facility] STORE #[id number], 160.02, cm, 11/02/22 11:52:00 CDT, Height, 105.682, kg,... Marielena Britton Qulipta 60 mg oral tablet 11-02 17:04: 00 Yes 60 mg = 1 tab, PO, Daily, # 30 tab, 2 Refill(s), [id number], 160.02, cm, 11/02/22 11:52:00 CDT, Height, 105.682, kg, 11/02/22 11:52:00 CDT, Weight Marielena Britton Rexulti 1 mg oral tablet 11-02 16:55: 00 Yes TAKE 1 TABLET BY MOUTH AT BEDTIME Memveto Britton Ubrelvy 100 MG tablet Ubrelvy 100 MG tablet 11-02 00:00: 00 08-21 00:00 :00 No See Instructio ns, TAKE 1 TABLET BY MOUTH BY MOUTH NEEDED FOR MIGRAINE, MAY REPEAT DOSE AFTER 2 HOURS. MAX DOSE 200 MG PER 24 HOURS, # 8 tab, 1 Refill(s), Pharmacy: [facility] STORE #[id number], 160.02, cm, 11/02/22 11:52:00 CDT, Height, 105.682, kg,... 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 Mem[facility]obi Ubrelvy 100 mg oral tablet 2021-02 14:54: 00 Yes See Instructio ns, TAKE 1 TABLET BY MOUTH BY MOUTH NEEDED FOR MIGRAINE, MAY REPEAT DOSE AFTER 2 HOURS. MAX DOSE 200 MG PER 24 HOURS, # 8 tab, 1 Refill(s), Pharmacy: [facility] STORE #[id number], 160.02, cm, 09/10/21 11:02:00 CDT, Height, 100.227, kg,... Memoria [facility] Tobi topiramate 100 mg oral tablet 2021-02 13:27: 00 Yes 100 mg = 1 tab, PO, Daily, # 90 tab, 0 Refill(s), Pharmacy: [facility] STORE #[id number], 160.02, cm, 09/10/21 11:02:00 CDT, Height, 100.227, kg, 09/10/21 11:02:00 CDT, Weight Mem[facility] Ubrelvy 100 mg oral tablet 09-21 13:49: 00 Yes See Instructio ns, TAKE 1 TABLET BY MOUTH BY MOUTH NEEDED FOR MIGRAINE, MAY REPEAT DOSE AFTER 2 HOURS. MAX DOSE 200 MG PER 24 HOURS, # 8 tab, 3 Refill(s), Pharmacy: [facility] STORE #[id number], 160.02, cm, 09/10/21 11:02:00 CDT, Height, 100.227, kg,... [facility] [place] topiramate 100 mg oral tablet 09-10 16:26: 00 Yes 100 mg = 1 tab, PO, Bedtime, # 90 tab, 3 Refill(s), Pharmacy: [facility] STORE #[id number], 160.02, cm, 09/10/21 11:02:00 CDT, Height, 100.227, kg, 09/10/21 11:02:00 CDT, Weight [facility] topiramate 50 mg oral tablet 05-28 21:45: 00 Yes 50 mg = 1 tab, PO, Bedtime, # 90 tab, 1 Refill(s), Pharmacy: [facility] STORE #[id number], 162.56, cm, 05/28/21 16:02:00 CDT, Height, 99.545, kg, 05/28/21 16:02:00 CDT, Weight Memveto Britton ubrogepant 100 MG Oral Tablet [Ubrelvy] 1-08 00:06: 00 Yes 100 mg = 1 tab, PO, PRN, PRN Other -See Comment, X 30 day, # 8 tab, 1 Refill(s), Pharmacy: [facility] #[id number], For Migraine. May repeat dose after 2 hours. Max dose 200 mg/ 24 hours, 160.02, cm, 12/08/20 9:25:00 CDT, Height, 103.182, kg, 11/27... [facility] topiramate 100 mg oral tablet 2020-02 0-18 21:32: 00 Yes 100 mg = 1 tab, PO, BID, # 180 tab, 3 Refill(s), Pharmacy: [facility] STORE #[id number], 160.02, cm, 10/12/21 9:25:00 CDT, Height, 103.182, kg, 12/08/20 9:25:00 CDT, Weight Memoria rene Britton topiramate 100 mg oral tablet 2020-02 0 14:39: 00 Yes 100 mg = 1 tab, PO, BID, # 60 tab, 3 Refill(s), Pharmacy: [facility] STORE #[id number], 160.02, cm, 12/08/20 9:25:00 CDT, Height, 103.182, kg, 12/08/20 9:25:00 CDT, Weight Memoria rene Britton topiramate 100 mg oral tablet 6- 14:35: 00 Yes 100 mg = 1 tab, PO, BID, # 60 tab, 3 Refill(s), Pharmacy: [id number], 162.56, cm, 08/07/20 9:25:00 CDT, Height, 104.545, kg, 08/07/20 9:25:00 CDT, Weight Memoria rene Britton rosuvastati n 10 mg oral tablet 06-30 21:11: 00 Yes TAKE 1 TABLET BY MOUTH EVERY EVENING Memoria rene Britton valsartan 160 mg oral tablet 06-30 21:11: 00 Yes TAKE 1 TABLET BY MOUTH EVERY MORNING Memoria l Tobi topiramate 100 mg oral tablet 2-26 15:27: 00 Yes 100 mg = 1 tab, PO, BID, # 60 tab, 3 Refill(s), Pharmacy: [id number] topiramate 50 mg oral tablet 11-02 15:05: 00 No 50 mg = 1 tab, PO, BID, # 60 tab, 1 Refill(s) [facility] gabapentin 600 MG Oral Tablet 11-02 15:05: 00 Yes 600 mg = 1 tab, PO, QID, 0 Refill(s) [facility] Mirtazapine 15 MG Oral Tablet 11-02 15:05: 00 Yes 15 mg = 1 tab, PO, Bedtime, # 30 tab, 0 Refill(s) [facility] simvastatin 10 mg oral tablet 11-02 15:05: 00 Yes 10 mg = 1 tab, PO, Bedtime, # 30 tab, 0 Refill(s) Marielena Britton valsartan 160 mg oral tablet 11-02 15:05: 00 Yes 160 mg = 1 tab, PO, Daily, # 30 tab, 0 Refill(s) Marielena Britton SUMAtriptan 50 mg oral tablet 11-02 15:05: 00 Yes 1/2 tab, PO, PRN, 0 Refill(s) Marielena Britton hydromorpho ne 4 mg oral tablet 11-02 15:05: 00 Yes 4 mg = 1 tab, PO, Q8H, PRN Pain, 0 Refill(s) Marielena Britton DULoxetine 60 mg oral delayed release capsule 11-02 15:05: 00 Yes 60 mg = 1 cap, PO, BID, # 30 cap, 0 Refill(s) Marielena Britton gabapentin 600 mg oral tablet 11-02 15:05: 00 Yes 600 mg = 1 tab, PO, QID, 0 Refill(s) Marielena Britton mirtazapine 15 mg oral tablet 11-02 15:05: 00 Yes 15 mg = 1 tab, PO, Bedtime, # 30 tab, 0 Refill(s) Marielena Britton gabapentin (Neurontin) 600 MG tablet gabapentin (Neurontin) 600 MG tablet 11-02 00:00: 00 Yes 600mg Q.[id number] 3D Take 600 mg by mouth in the morning and 600 mg at noon and 600 mg in the evening. Marielena Garcia Cymbalta 60 mg capsule,del ayed release 08-06 00:00: 00 Yes 1mg Po Lora ibuprofen 600 mg tablet 07-17 00:00: 00 Yes 1mg Po Lora hydromorpho ne 4 mg tablet 07-17 00:00: 00 Yes 1mg Po L[facility] gabapentin 600 mg tablet 07-17 00:00: 00 Yes 1mg Po Lora Cymbalta 60 mg capsule,del ayed release 07-17 00:00: 00 Yes 1mg Po Lora Immunizations Ordered Immunization Name Filled Immunization Name Date Status Comments Source Influenza, seasonal, injectable, preservative free Influenza, seasonal, injectable, preservative free 2016-01-02 00:00:00 Completed [facility] Pneumococcal Polysaccharide PPSV23 Pneumococcal Polysaccharide PPSV23 2014-10-25 00:00:00 Completed [facility] Vital Signs Vital Name Observation Time Observation Value Comments Petra sun Systolic blood pressure 2024-09-26 09:54:00 122 mm[Hg] [facility] Diastolic blood pressure 2024-09-26 09:54:00 91 mm[Hg] [facility] Heart rate 2024-09-26 09:54:00 74 /[facility] 2024-09-26 09:54:00 37 [facility] Respiratory rate 2024-09-26 09:54:00 16 /min [facility] Body height 2024-09-26 09:54:00 161.3 cm [facility] Body weight 2024-09-26 09:54:00 110.678 kg [facility] BMI 2024-09-26 09:54:00 42.54 kg/m2 [facility] Oxygen saturation in Arterial blood by Pulse oximetry 2024-09-26 09:54:00 91 /min [facility] Systolic blood pressure 2024-09-26 09:54:00 122 mm[Hg] [facility] Diastolic blood pressure 2024-09-26 09:54:00 91 mm[Hg] [facility] Heart rate 2024-09-26 09:54:00 74 /min [facility] Body temperature 2024-09-26 09:54:00 37 [facility] Respiratory rate 2024-09-26 09:54:00 16 /min [facility] Body height 2024-09-26 09:54:00 161.3 cm [facility] Body weight 2024-09-26 09:54:00 110.678 kg [facility] BMI 2024-09-26 09:54:00 42.54 kg/m2 [facility] Oxygen saturation in Arterial blood by Pulse oximetry 2024-09-26 09:54:00 91 /min [facility] Systolic blood pressure 2023-12-20 10:32:00 125 mm[Hg] [facility] Epic Diastolic blood pressure 2023-12-20 10:32:00 89 mm[Hg] [facility] Epic Heart rate 2023-12-20 10:32:00 88 /min [facility] Body temperature 2023-12-20 10:32[facility] 2023-12-20 10:32:00 16 /min [facility] Body height 2023-12-20 10:32:00 160 cm Marino rial Tobi Epic Body weight 2023-12-20 10:32:00 111.585 kg Marino rial [facility] Epic BMI 2023-12-20 10:32:00 43.58 kg/m2 [facility] Epic Oxygen saturation in Arterial blood by Pulse oximetry 2023-12-20 10:32:00 93 /min [facility] Epic Systolic blood pressure 2023-12-20 10:32:00 125 mm[Hg] [facility] Diastolic blood pressure 2023-12-20 10:32:00 89 mm[Hg] [facility] Epic Heart rate 2023-12-20 10:32:00 88 /min [facility] Body temperature 2023-12-20 10:32:00 36.5 [facility] Epic Respiratory rate 2023-12-20 10:32:00 16 /min [facility] Body height 2023-12-20 10:32:00 160 cm [facility] Epic Body weight 2023-12-20 10:32:00 111.585 kg [facility] Epic BMI 2023-12-20 10:32:00 43.58 kg/m2 Marino rial Tobi Epic Oxygen saturation in Arterial blood by Pulse oximetry 2023-12-20 10:32:00 93 /min [facility] Epic Systolic blood pressure 2023-08-22 11:15:00 96 mm[Hg] [facility] Diastolic blood pressure 2023-08-22 11:15:00 72 mm[Hg] [facility] Epic Heart rate 2023-08-22 11:15:00 70 /min [facility] Body temperature 2023-08-22 11:15:00 36.22 [facility] Respiratory rate 2023-08-22 11:15:00 16 /min [facility] Body height 2023-08-22 11:15:00 160 cm Marino Manzoann Epic Body weight 2023-08-22 11:15:00 63.05 kg Marino Manzoann Epic BMI 2023-08-22 11:15:00 24.62 kg/m2 Marino Manzoann Epic Oxygen saturation in Arterial blood by Pulse oximetry 2023-08-22 11:15:00 95 /min [facility] Systolic blood pressure 2023-08-22 11:15:00 96 mm[Hg] [facility] Epic Diastolic blood pressure 2023-08-22 11:15:00 72 mm[Hg] [facility] Epic Heart rate 2023-08-22 11:15:00 70 /min [facility] Body temperature 2023-08-22 11:15:00 36.22 [facility] Respiratory rate 2023-08-22 11:15:00 16 /min [facility] Body height 2023-08-22 11:15:00 160 [facility] 2023-08-22 11:15:00 63.05 kg [facility] BMI 2023-08-22 11:15:00 24.62 kg/m2 Marino Manzoann Epic Oxygen saturation in Arterial blood by Pulse oximetry 2023-08-22 11:15:00 95 /min [facility] BP Systolic 2024-09-24 09:43:00 141 mm[Hg] Step hen F Guido BP Diastolic 2024-09-24 09:43:00 105 mm[Hg] Meño phen F Guido Weight Measured 2024-09-24 09:43:00 234.40 pounds Po F Guido Height Measured 2024-09-24 09:43:00 63.00 inches Po F Guido Body Temperature 2024-09-24 09:43:00 98.30 degrees Po F Guido Heart Rate 2024-09-24 09:43:00 84.00 /min Xiomara en F Guido Respiratory Rate 2024-09-24 09:43:00 17.00 /min Po F Guido BP Systolic 2024-06-25 09:46:00 128 mm[Hg] Step hen F Guido BP Diastolic 2024-06-25 09:46:00 80 mm[Hg] Meño phen F Guido Weight Measured 2024-06-25 09:46:00 242.20 pounds Po Dano Lora Height Measured 2024-06-25 09:46:00 63.00 inches Po F Guido Body Temperature 2024-06-25 09:46:00 98.00 degrees Po F Guido Heart Rate 2024-06-25 09:46:00 84.00 /min Xiomara en F Guido Respiratory Rate 2024-06-25 09:46:00 Po F Guido Heart Rate 2024-03-07 09:47:00 85.00 /min Xiomara en F Guido Respiratory Rate 2024-03-07 09:47:00 Po F Guido BP Systolic 2024-03-07 09:47:00 137 mm[Hg] Step hen F Guido BP Diastolic 2024-03-07 09:47:00 95 mm[Hg] Meño phen F Guido Weight Measured 2024-03-07 09:47:00 242.60 pounds Po Lora Height Measured 2024-03-07 09:47:00 63.00 inches Po Lora Body Temperature 2024-03-07 09:47:00 97.90 degrees Po Matson Guido Systolic (mm Hg) 2022-11-02 16:43:00 [facility] Diastolic (mm Hg) 2022-11-02 16:43:00 [facility] Tobi Heart Rate 2022-11-02 16:43:00 [facility] Height 2022-11-02 16:43:00 5 [ft_i] [facility] Weight 2022-11-02 16:43:00 [facility] BMI Calculated 2022-11-02 16:43:00 [facility] Systolic (mm Hg) 2022-01-13 16:46:00 [facility] Diastolic (mm Hg) 2022-01-13 16:46:00 [facility] Heart Rate 2022-01-13 16:46:00 [facility] Height 2022-01-13 16:46:00 5 [ft_i] [facility] Weight 2022-01-13 16:46:00 [facility] BMI Calculated 2022-01-13 16:46:00 [facility] Systolic (mm Hg) 2021-09-10 15:46:00 [facility] Diastolic (mm Hg) 2021-09-10 15:46:00 [facility] Heart Rate 2021-09-10 15:46:00 [facility] Respitory Rate 2021-09-10 15:46:00 [facility] Height 2021-09-10 15:46:00 160.02 cm [facility] Weight 2021-09-10 15:46:00 [facility] BMI Calculated 2021-09-10 15:46:00 [facility] Systolic (mm Hg) 2021-07-29 16:40:00 [facility] Diastolic (mm Hg) 2021-07-29 16:40:00 [facility] Heart Rate 2021-07-29 16:40:00 [facility] Respitory Rate 2021-07-29 16:40:00 [facility] Height 2021-07-29 16:40:00 160.02 cm [facility] Weight 2021-07-29 16:40:00 [facility] BMI Calculated 2021-07-29 16:40:00 [facility] Systolic (mm Hg) 2021-05-28 21:02:00 [facility] Diastolic (mm Hg) 2021-05-28 21:02:00 [facility] Heart Rate 2021-05-28 21:02:00 [facility] Respitory Rate 2021-05-28 21:02:00 [facility] Height 2021-05-28 21:02:00 162.56 cm [facility] Weight 2021-05-28 21:02:00 [facility] BMI Calculated 2021-05-28 21:02:00 [facility] Systolic (mm Hg) 2020-12-08 14:20:00 [facility] Diastolic (mm Hg) 2020-12-08 14:20:00 [facility] Heart Rate 2020-12-08 14:20:00 [facility] Respitory Rate 2020-12-08 14:20:00 [facility] Height 2020-12-08 14:20:00 160.02 cm [facility] Weight 2020-12-08 14:20:00 [facility] BMI Calculated 2020-12-08 14:20:00 [facility] Systolic (mm Hg) 2020-08-07 14:21:00 [facility] Diastolic (mm Hg) 2020-08-07 14:21:00 [facility] Heart Rate 2020-08-07 14:21:00 [facility] Respitory Rate 2020-08-07 14:21:00 [facility] Height 2020-08-07 14:21:00 162.56 cm [facility] Weight 2020-08-07 14:21:00 [facility] BMI Calculated 2020-08-07 14:21:00 [facility] Systolic (mm Hg) 2020-06-30 20:59:00 [facility] Diastolic (mm Hg) 2020-06-30 20:59:00 [facility] Heart Rate 2020-06-30 20:59:00 [facility] Respitory Rate 2020-06-30 20:59:00 [facility] Height 2020-06-30 20:59:00 162.56 cm [facility] Weight 2020-06-30 20:59:00 [facility] BMI Calculated 2020-06-30 20:59:00 [facility] Height 2019-04-24 15:14:00 162.56 cm [facility] Weight 2019-04-24 15:14:00 [facility] BMI Calculated 2019-04-24 15:14:00 [facility] Systolic (mm Hg) 2019-04-24 15:14:00 [facility] Diastolic (mm Hg) 2019-04-24 15:14:00 [facility] Heart Rate 2019-04-24 15:14:00 [facility] Respitory Rate 2019-04-24 15:14:00 [facility] Systolic (mm Hg) 2018-12-11 20:33:00 [facility] Diastolic (mm Hg) 2018-12-11 20:33:00 [facility] Heart Rate 2018-12-11 20:33:00 [facility] Respitory Rate 2018-12-11 20:33:00 [facility] Height 2018-12-11 20:33:00 162.56 cm [facility] Weight 2018-12-11 20:33:00 [facility] BMI Calculated 2018-12-11 20:33:00 [facility] Systolic (mm Hg) 2018-11-02 14:52:00 [facility] Diastolic (mm Hg) 2018-11-02 14:52:00 [facility] Heart Rate 2018-11-02 14:52:00 [facility] Respitory Rate 2018-11-02 14:52:00 [facility] Height 2018-11-02 14:52:00 162.56 cm [facility] Weight 2018-11-02 14:52:00 [facility] BMI Calculated 2018-11-02 14:52:00 [facility] BP Systolic 2018-08-06 14:14:00 112 mm[Hg] Step hen F [facility] BP Diastolic 2018-08-06 14:14:00 72 mm[Hg] Meño phen F [facility] Weight Measured 2018-08-06 14:14:00 214.80 pounds Po F Guido Height Measured 2018-08-06 14:14:00 63.98 inches Po F Guido Body Temperature 2018-08-06 14:14:00 98.50 degrees Po F [facility] Heart Rate 2018-08-06 14:14:00 77.00 /min Xiomara en F Guido Respiratory Rate 2018-08-06 14:14:00 Po F [facility] BP Systolic 2018-07-17 14:53:00 Step hen F Guido BP Diastolic 2018-07-17 14:53:00 Meño phen F [facility] Weight Measured 2018-07-17 14:53:00 Po F [facility] Height Measured 2018-07-17 14:53:00 Po F [facility] Body Temperature 2018-07-17 14:53:00 Po F [facility] Heart Rate 2018-07-17 14:53:00 Xiomara en F Guido Respiratory Rate 2018-07-17 14:53:00 Po F [facility] Procedures Procedure Date / Time Performed Performing Clinicia n Source ASSIGNMENT OF BENEFITS 2021-10-13 18:29:38 Docto r Unassigned, [place] [facility] XR FOOT 3+ VW LEFT 2018-09-24 15:10:22 Sarina Pereyra sa [facility] Encounters Start Date/Time End Date/Time Encounter Type Admission Type Attending [facility] Care Department Encounter ID Source 2024-09-26 09:45:00 2024-09-26 10:05:52 Office Visit Vee Raymond [id number] 8.2.7.2.686 [id number] Marielena Britton [facility] 2024-09-26 09:37:59 2024-09-26 10:05:52 Outpatient Elective VEE RAYMOND MHEOUT MHEOUT [id number] MHEOUT 2024-09-24 09:50:05 2024-09-24 09:50:05 Outpatient SFA [facility] [id number] Po Matson Guido 2024-09-24 00:00:00 2024-09-24 00:00:00 Outpatient Visit SFA [id number] Po Matson Guido 2024-09-18 00:00:00 2024-09-18 13:56:14 Refill Vee Raymond [id number] 350.1.13.70 8.2.7.2.686 [id number] [facility]24-[facility]-25 09:46:12 2024-06-25 09:46:12 Outpatient SFA [facility] [id number] Po Matson Guido 2024-03-07 09:47:03 2024-03-07 09:47:03 Outpatient SFA SFA [id number] Po Matson Guido 2024-03-07 00:00:00 2024-03-07 00:00:00 Outpatient Visit SFA SFA [id number] Po Lora 2023-12-20 10:30:00 2023-12-20 10:49:44 Office Visit Vee Raymond [id number] 350.1.13.70 8.2.7.2.686 [id number] Marielena lópez [facility] 2023-12-20 10:22:36 2023-12-20 10:49:44 Outpatient MONICO RAYMONDIR EOUT EOUT [id number] [facility] 2023-12-16 00:00:00 2023-12-18 14:03:08 Refill Vee Raymond [id number] 350.1.13.70 8.2.7.2.686 [id number] Marielena lópez [facility] 2023-12-17 00:00:00 2023-12-18 14:02:54 Refill Vee Raymond [place] [id number] 350.1.13.70 8.2.7.2.686 [id number] Marielena lópez [facility] 2023-12-18 00:00:00 2023-12-18 13:59:01 Refill Vee Raymond 1.20.114 350.1.13.70 8.2.7.2.686 [id number] Marielena lópez [facility] 2023-08-22 10:56:36 2023-08-22 12:01:28 Outpatient Elective MIHIRMONICO GEORGEIR MHLuisaOUT EOUT [id number] EOUT 2023-08-22 10:15:00 2023-08-22 12:01:28 Office Visit Vee Raymond [id number] 350.1.13.70 8.2.7.2.686 [id number] Marielena lópez [facility] 2021-10-13 13:30:00 2021-10-13 13:45:00 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 [facility] [id number] 350.1.13.10 4.2.7.2.686 [id number] [facility] 2018-09-24 09:45:00 2018-09-24 23:59:00 Hospital Encounter Radiology [facility] [id number] 350.1.13.10 4.2.7.2.686 [id number] [facility] Results Test Description Test Time Test Comments Results Resul t Comments Source XR FOOT 3+ VW LEFT 2018-08-28 9 15:13:04 HISTORY:?Pain. FINDINGS: AP, lateral, oblique views of left foot showed no acute fractureor dislocation. No significant changes of arthritis or aggressive bonelesions seen. 5 mm helical spur and mild degenerative changes in first,second and third tarsometatarsal joints noted. Mild degenerative changesare seen also in first MTP joint. CONCLUSIONS: No acute fracture or dislocation in left foot. [facility], Radiant Results Inft User - 09/24/2018 10:13 AM CDTHISTORY: Pain.FINDINGS: AP, lateral, oblique views of left foot showed no acute fractureor dislocation. No significant changes of arthritis or aggressive bonelesions seen. 5 mm helical spur and mild degenerative changes in first,second and third tarsometatarsal joints noted. Mild degenerative changesare seen also in first MTP joint.CONCLUSIONS: No acute fracture or dislocation in left foot. [facility] Po Matson AustinLIPID [id number] 00:00:00* Test Item Value Reference Range Interpretation Comme nts CHOLESTEROL (test code = 2210) 181 MG/DL TRIGLYCERIDES (test code = 2232) 162 MG/DL HDL CHOLESTEROL (test code = 2220) 43 MG/DL CALC LDL CHOL (test code = 2237) 106 MG/DL RISK RATIO LDL/HDL (test cod e = 2238) 2.46 RATIO Po LoraHEMOGLOBIN [id number] 00:00:00* Test Item Value Reference Range Interpretation Comme doroteo HEMOGLOBIN A1c (test code = 05129) 5.7 % Po LoraCOMPREHENSIVE METABOLIC [id number] 00:00:00* Test Item Value Reference Range Interpretation Comme nts GLUCOSE (test code = 2217) 133 MG/DL BUN (test code = 2208) 17 MG/DL CREATININE (test code = 2214) 0.97 MG/DL eGFR AMER. (test cod e = 49768) 76 ML/MIN/1.73 eGFR NON- AMER. (test code = 05604) 65 ML/MIN/1.73 CALC BUN/CREAT (test code = 2235) 18 RATIO SODIUM (test code = 2231) 144 MEQ/L POTASSIUM (test code = 2228) 4.8 MEQ/L CHLORIDE (test code = 2215) 104 MEQ/L CARBON DIOXIDE (test code = 2206) 28 MEQ/L CALCIUM (test code = 2209) 9.0 MG/DL PROTEIN, TOTAL (test code = 2229) 6.9 G/DL ALBUMIN (test code = 2201) 4.2 G/DL CALC GLOBULIN (test code = 2240) 2.7 G/DL CALC A/G RATIO (test code = 2234) 1.6 RATIO BILIRUBIN, TOTAL (test code = 2207) 0.6 MG/DL ALKALINE PHOSPHATASE (test code = 2204) 90 U/L AST (test code = 2218) 12 U/L ALT (test code = 2219) 9 U/L Po [id number] 00:00:00* Test Item Value Reference Range Interpretation Comme doroteo TSH, THIRD GENERATION (test code = 2821) 0.508 UIU/ML Po LoraCBC W/AUTO [id number] 00:00:00* Test Item Value Reference Range Interpretation Comme doroteo WBC (test code = 1001) 6.1 K/UL RBC (test code = 1002) 4.66 M/UL HEMOGLOBIN (test code = 1003) 14.1 G/DL HEMATOCRIT (test code = 1004) 42.1 % MCV (test code = 1005) 90.3 fL MCH (test code = 1006) 30.3 PG MCHC (test code = 1007) 33.5 G/DL RDW (test code = 1038) 12.7 % NEUTROPHILS (test code = 1008) 57.4 % LYMPHOCYTES (test code = 1010) 33.6 % MONOCYTES (test code = 1011) 5.6 % EOSINOPHILS (test code = 1012) 2.6 % BASOPHILS (test code = 1013) 0.8 % PLATELET COUNT (test code = 1015) 214 K/UL Po LoraLIPID [id number] 00:00:00* Test Item Value Reference Range Interpretation Comme nts CHOLESTEROL (test code = 2210) 181 MG/DL TRIGLYCERIDES (test code = 2232) 162 MG/DL HDL CHOLESTEROL (test code = 2220) 43 MG/DL CALC LDL CHOL (test code = 2237) 106 MG/DL RISK RATIO LDL/HDL (test cod e = 2238) 2.46 RATIO Po LoraHEMOGLOBIN [id number] 00:00:00* Test Item Value Reference Range Interpretation Comme nts HEMOGLOBIN A1c (test code = 82690) 5.7 % Po LoraCOMPREHENSIVE METABOLIC [id number] 00:00:00* Test Item Value Reference Range Interpretation Comme nts GLUCOSE (test code = 2217) 133 MG/DL BUN (test code = 2208) 17 MG/DL CREATININE (test code = 2214) 0.97 MG/DL eGFR AMER. (test cod e = 21620) 76 ML/MIN/1.73 eGFR NON- AMER. (test code = 61665) 65 ML/MIN/1.73 CALC BUN/CREAT (test code = 2235) 18 RATIO SODIUM (test code = 2231) 144 MEQ/L POTASSIUM (test code = 2228) 4.8 MEQ/L CHLORIDE (test code = 2215) 104 MEQ/L CARBON DIOXIDE (test code = 2206) 28 MEQ/L CALCIUM (test code = 2209) 9.0 MG/DL PROTEIN, TOTAL (test code = 2229) 6.9 G/DL ALBUMIN (test code = 2201) 4.2 G/DL CALC GLOBULIN (test code = 2240) 2.7 G/DL CALC A/G RATIO (test code = 2234) 1.6 RATIO BILIRUBIN, TOTAL (test code = 2207) 0.6 MG/DL ALKALINE PHOSPHATASE (test code = 2204) 90 U/L AST (test code = 2218) 12 U/L ALT (test code = 2219) 9 U/L Po [id number] 00:00:00* Test Item Value Reference Range Interpretation Comme nts TSH, THIRD GENERATION (test code = 2821) 0.508 UIU/ML Po Lora Notes Date/Time Note Provider Source 2024-09-26 10:49:44 [facility]2025-07-31 10:49:44* Vee Raymond MD - 09/26/2024 9:45 AM CDT History of Present Illness HPI The patient is a 63-year-old female presenting for follow-up on migraine management. The patient reports an increase in migraine frequency, currently experiencing approximately four episodes per week. She notes that the heat exacerbates her migraines, particularly when taking her dog outside. Previously, she experienced only one to two migraines per month. She observes that her migraines tend to worsen in the summer compared to the fall, with a noticeable difference this year. She is currently taking Qulipta and uses Ubrelvy as needed, which she reports is effective in alleviating her symptoms. She recently received a new supply of medication. Allergies as of 09/26/2024 - Reviewed 09/26/2024 Allergen Reaction Noted Codeine 03/07/2024 Levofloxacin 07/17/2018 Penicillins 08/22/2023 has a current medication list which includes the following prescription(s): albuterol hfa, duloxetine, gabapentin, hydromorphone, qulipta, rosuvastatin, ubrelvy, ubrelvy, ubrelvy, and valsartan. Head: (+) headache Vitals:09/26/24 0954 BP: (!) 122/91 Pulse: 74 Resp: 16 Temp: 37 ?C (98.6 ?F) SpO2: 91% Neurological Exam Mental Status: Awake, alert, and oriented to person, place, and time. Speech is normal. Language is fluent with no aphasia. Cranial Nerves: CN III, IV, : Extraocular movements intact bilaterally. No nystagmus. CN II-XII are otherwise intact. Motor: Normal muscle bulk throughout. Normal muscle tone. No abnormal involuntary movements. There is no tremor at rest or with action. There is no bradykinesia. There is no apparent weakness or pronator drift. Coordination: Right: Blbpzz-dl-mcau normal. Rapid alternating movement is normal. Left: Jnvxqv-es-mzfz normal. Rapid alternating movement is normal. Gait: Casual gait is normal, including stance, stride, and arm swing. Results for orders placed or performed in visit on 01/13/22Blood Urea Nitrogen and Creatinine Collection Time: 10/06/22 11:03 AM Result Value Ref Range BUN 14 7 - 25 mg/dL eGFR 87 > OR = 60 mL/min/1.73m2 Creatinine Lvl 0.78 0.50 - 1.05 mg/dL B/C Ratio SEE NOTE: - (CALC) Electrolyte Panel Collection Time: 10/06/22 11:03 AM Result Value Ref Range Chloride Lvl 105 98 - 110 mMol/L Sodium Lvl 139 135 - 146 mMol/L CO2 Lvl 29 20 - 32 mMol/L Potassium Lvl 4.6 3.5 - 5.3 mMol/L No MRI head results found for the past 12 months Your note content is not currently available. Please go to the Ambienceactivity and push your notes to view them here. Assessment & Plan# Intractable migraine with aura without status migrainosus (G43.119) - Increase in migraine frequency from 1-2 per month to 4 per week, likely triggered by heat exposure. - Acute attacks responsive to Ubrelvy; patient is currently on Qulipta. - Monitor for reduction in frequency as weather cools; if not improved, consider medication adjustment or addition. - Follow-up in 4-6 months. [facility] [id number] 10:49:44Upcoming Encounters Health Maintenance Due Date Last Done Comments CT Colonography 1961 Colonoscopy 1961 Colorectal Cancer Screening 1961 FIT-DNA 1961 FIT 1961 FOBT 1961 Lipid Panel 1961 Medicare Annual Wellness (AWV) 1961 Sigmoidoscopy 1961 DTaP/Tdap/Td Vaccines (1 - Tdap) 1980 Pap Smear 1982 Cervical Cancer Screening 12/22/1991 HPV/Cotest 12/22/1991 Mammogram 2001 Zoster Vaccines (1 of 2) 12/22/2011 Pneumococcal Vaccine: 50+ Ye ars (2 of 2 - PCV) 10/26/2015 10/25/2014 Pneumococcal Vaccine: Pediat rics (0 to 5 Years) and At-Risk Patients (6 to 64 Years) (2 of 2 - PCV) 10/26/2015 10/25/2014 Respiratory Syncytial Virus (RSV) Adult Series (1 - Risk 60-74 years 1-dose series) 2021 Influenza Vaccine (#1) 2024 01/02/2016 HIB Vaccines Aged Out No longer eligi ble based on patient's age to complete this topic HPV Vaccines Aged Out No longer eligi ble based on patient's age to complete this topic Hepatitis A Vaccines Aged Out No long er eligible based on patient's age to complete this topic Hepatitis B Vaccines Aged Out No long er eligible based on patient's age to complete this topic IPV Vaccines Aged Out No longer eligi ble based on patient's age to complete this topic Meningococcal Vaccine Aged Out No britney sher eligible based on patient's age to complete this topic Rotavirus Vaccines Aged Out No longer eligible based on patient's age to complete this topic [id number] 10:49:44 Diagnosis Intractable migraine with au ra without status migrainosus - Primary [facility] [id number] 10:49:44 [facility] [id number] 10:49:44* [facility] HospitalKyuvoga5565-36-47 10:49:44 [facility] HospitalRxhoumd9353-86-10 10:49:44* Vee Raymond MD - 09/26/2024 9:45 AM CDT History of Present Illness HPI The patient is a 63-year-old female presenting for follow-up on migraine management. The patient reports an increase in migraine frequency, currently experiencing approximately four episodes per week. She notes that the heat exacerbates her migraines, particularly when taking her dog outside. Previously, she experienced only one to two migraines per month. She observes that her migraines tend to worsen in the summer compared to the fall, with a noticeable difference this year. She is currently taking Qulipta and uses Ubrelvy as needed, which she reports is effective in alleviating her symptoms. She recently received a new supply of medication. Allergies as of 09/26/2024 - Reviewed 09/26/2024 Allergen Reaction Noted Codeine 03/07/2024 Levofloxacin 07/17/2018 Penicillins 08/22/2023 has a current medication list which includes the following prescription(s): albuterol hfa, duloxetine, gabapentin, hydromorphone, qulipta, rosuvastatin, ubrelvy, ubrelvy, ubrelvy, and valsartan. Head: (+) headache Vitals:09/26/24 0954 BP: (!) 122/91 Pulse: 74 Resp: 16 Temp: 37 ?C (98.6 ?F) SpO2: 91% Neurological Exam Mental Status: Awake, alert, and oriented to person, place, and time. Speech is normal. Language is fluent with no aphasia. Cranial Nerves: CN III, IV, : Extraocular movements intact bilaterally. No nystagmus. CN II-XII are otherwise intact. Motor: Normal muscle bulk throughout. Normal muscle tone. No abnormal involuntary movements. There is no tremor at rest or with action. There is no bradykinesia. There is no apparent weakness or pronator drift. Coordination: Right: Jbjwsm-wq-abks normal. Rapid alternating movement is normal. Left: Pfbpsn-bl-xliu normal. Rapid alternating movement is normal. Gait: Casual gait is normal, including stance, stride, and arm swing. Results for orders placed or performed in visit on 01/13/22Blood Urea Nitrogen and Creatinine Collection Time: 10/06/22 11:03 AM Result Value Ref Range BUN 14 7 - 25 mg/dL eGFR 87 > OR = 60 mL/min/1.73m2 Creatinine Lvl 0.78 0.50 - 1.05 mg/dL B/C Ratio SEE NOTE: 6 - 22 (CALC) Electrolyte Panel Collection Time: 10/06/22 11:03 AM Result Value Ref Range Chloride Lvl 105 98 - 110 mMol/L Sodium Lvl 139 135 - 146 mMol/L CO2 Lvl 29 20 - 32 mMol/L Potassium Lvl 4.6 3.5 - 5.3 mMol/L No MRI head results found for the past 12 months Your note content is not currently available. Please go to the Ambienceactivity and push your notes to view them here. Assessment & Plan# Intractable migraine with aura without status migrainosus (G43.119) - Increase in migraine frequency from 1-2 per month to 4 per week, likely triggered by heat exposure. - Acute attacks responsive to Ubrelvy; patient is currently on Qulipta. - Monitor for reduction in frequency as weather cools; if not improved, consider medication adjustment or addition. - Follow-up in 4-6 months. [facility] HospitalXkmzmip5842-43-73 10:49:44Upcoming Encounters Health Maintenance Due Date Last Done Comments CT Colonography 1961 Colonoscopy 1961 Colorectal Cancer Screening 1961 FIT-DNA 1961 FIT 1961 FOBT 1961 Lipid Panel 1961 Medicare Annual Wellness (AWV) 1961 Sigmoidoscopy 1961 DTaP/Tdap/Td Vaccines (1 - Tdap) 1980 Pap Smear 1982 Cervical Cancer Screening 12/22/1991 HPV/Cotest 12/22/1991 Mammogram 2001 Zoster Vaccines (1 of 2) 12/22/2011 Pneumococcal Vaccine: 50+ Ye ars (2 of 2 - PCV) 10/26/2015 10/25/2014 Pneumococcal Vaccine: Pediat rics (0 to 5 Years) and At-Risk Patients (6 to 64 Years) (2 of 2 - PCV) 10/26/2015 10/25/2014 Respiratory Syncytial Virus (RSV) Adult Series (1 - Risk 60-74 years 1-dose series) 2021 Influenza Vaccine (#1) 2024 01/02/2016 HIB Vaccines Aged Out No longer eligi ble based on patient's age to complete this topic HPV Vaccines Aged Out No longer eligi ble based on patient's age to complete this topic Hepatitis A Vaccines Aged Out No long er eligible based on patient's age to complete this topic Hepatitis B Vaccines Aged Out No long er eligible based on patient's age to complete this topic IPV Vaccines Aged Out No longer eligi ble based on patient's age to complete this topic Meningococcal Vaccine Aged Out No britney sher eligible based on patient's age to complete this topic Rotavirus Vaccines Aged Out No longer eligible based on patient's age to complete this topic [facility] HospitalMkdpqdi3936-17-63 10:49:44 Diagnosis Intractable migraine with au ra without status migrainosus - Primary [facility] HospitalKozflcc1692-80-11 10:49:44 [facility] HospitalPeaykiw9526-25-34 00:00:00 Po [facility]2025-07-23 13:56:24 [facility] HospitalXmepbyp7381-52-77 13:56:24Upcoming Encounters Health Maintenance Due Date Last Done Comments CT Colonography 1961 Colonoscopy 1961 Colorectal Cancer Screening 1961 FIT-DNA 1961 FIT 1961 FOBT 1961 Lipid Panel 1961 Medicare Annual Wellness (AWV) 1961 Sigmoidoscopy 1961 DTaP/Tdap/Td Vaccines (1 - Tdap) 1980 Pap Smear 1982 Cervical Cancer Screening 12/22/1991 HPV/Cotest 12/22/1991 Mammogram 2001 Zoster Vaccines (1 of 2) 12/22/2011 Pneumococcal Vaccine: 50+ Ye ars (2 of 2 - PCV) 10/26/2015 10/25/2014 Respiratory Syncytial Virus (RSV) Adult Series (1 - Risk 60-74 years 1-dose series) 2021 Influenza Vaccine (#1) 2024 01/02/2016 Pneumococcal Vaccine: Pediat rics (0 to 5 Years) and At-Risk Patients (6 to 64 Years) Aged Out 10/25/2014 No longer eligible b ased on patient's age to complete this topic HIB Vaccines Aged Out No longer eligi ble based on patient's age to complete this topic HPV Vaccines Aged Out No longer eligi ble based on patient's age to complete this topic Hepatitis A Vaccines Aged Out No long er eligible based on patient's age to complete this topic Hepatitis B Vaccines Aged Out No long er eligible based on patient's age to complete this topic IPV Vaccines Aged Out No longer eligi ble based on patient's age to complete this topic Meningococcal Vaccine Aged Out No britney sher eligible based on patient's age to complete this topic Rotavirus Vaccines Aged Out No longer eligible based on patient's age to complete this topic [facility] HospitalQmmvzvh2942-64-89 13:56:24 [facility] HospitalIekwwxw9381-69-24 13:56:24* [facility] HospitalGjrnanv9511-65-91 00:00:00 Po Lora [facility]2024-10-23 18:10:15* [facility] 2023-12-20 18:10:15 [facility] HospitalNbsjibp0227-50-62 18:10:15* Vee Raymond MD - 12/20/2023 10:30 AM CDT History of Present Illness Migraine Headaches are stable on the Qulipta with Ubrelvy prn. No side effects on the medicine. Qulipta auth expires in January. Headaches down to 1-2 per month. Allergies as of 12/20/2023 - Reviewed 12/20/2023 Allergen Reaction Noted Levofloxacin 08/22/2023 Penicillins 08/22/2023 has a current medication list which includes the following prescription(s): albuterol hfa, duloxetine, gabapentin, hydromorphone, qulipta, rosuvastatin, ubrelvy, ubrelvy, and valsartan. Vitals:12/20/23 1032 BP: 125/89 Pulse: 88 Resp: 16 Temp: 36.5 ?C (97.7 ?F) SpO2: 93% Neurological Exam Mental Status Awake and alert. Speech is normal. Cranial NervesCN II: Visual acuity is normal. CN III, IV, : Extraocular movements intact bilaterally. Pupils equal round and reactive to light bilaterally. CN VII: Full and symmetric facial movement. CN XII: Tongue midline without atrophy or fasciculations. MotorStrength is 5/5 throughout all four extremities. SensoryLight touch is normal in upper and lower extremities. Temperature is normal in upper and lower extremities. Vibration is normal in upper and lower extremities. ReflexesDeep tendon reflexes: Symmetric. GaitCasual gait is normal including stance, stride, and arm swing. Results for orders placed or performed in visit on 01/13/22 Blood Urea Nitrogen and Creatinine Collection Time: 10/06/22 11:03 AM Result Value Ref Range BUN 14 7 - 25 mg/dL eGFR 87 > OR = 60 mL/min/1.73m2 Creatinine Lvl 0.78 0.50 - 1.05 mg/dL B/C Ratio SEE NOTE: (CALC) Electrolyte Panel Collection Time: 10/06/22 11:03 AM Result Value Ref Range Chloride Lvl 105 98 - 110 mMol/L Sodium Lvl 139 135 - 146 mMol/L CO2 Lvl 29 20 - 32 mMol/L Potassium Lvl 4.6 3.5 - 5.3 mMol/L No MRI head results found for the past 12 months Assessment & PlanDiagnoses and all orders for this visit: Intractable migraine with aura without status migrainosus Stable, continue present medications. [facility]2024-10-23 18:10:15Upcoming Encounters Health Maintenance Due Date Last Done Comments CT Colonography 1961 Colonoscopy 1961 Colorectal Cancer Screening 1961 FIT-DNA 1961 FIT 1961 FOBT 1961 Lipid Panel 1961 Medicare Annual Wellness (AWV) 1961 Sigmoidoscopy 1961 DTaP/Tdap/Td Vaccines (1 - Tdap) 1980 Pap Smear 1982 Cervical Cancer Screening 12/22/1991 HPV/Cotest 12/22/1991 Mammogram 2001 Zoster Vaccines (1 of 2) 12/22/2011 Respiratory Syncytial Virus (RSV) or >=60 (1 - 1-dose 60+ series) 2021 Influenza Vaccine (#1) 2023 01/02/2016 Pneumococcal Vaccine: Pediat rics (0 to 5 Years) and At-Risk Patients (6 to 64 Years) Aged Out 10/25/2014 No longer eligible b ased on patient's age to complete this topic HIB Vaccines Aged Out No longer eligi ble based on patient's age to complete this topic HPV Vaccines Aged Out No longer eligi ble based on patient's age to complete this topic Hepatitis A Vaccines Aged Out No long er eligible based on patient's age to complete this topic Hepatitis B Vaccines Aged Out No long er eligible based on patient's age to complete this topic IPV Vaccines Aged Out No longer eligi ble based on patient's age to complete this topic Meningococcal Vaccine Aged Out No britney sher eligible based on patient's age to complete this topic Rotavirus Vaccines Aged Out No longer eligible based on patient's age to complete this topic [facility] HospitalCqptqlw3333-51-54 18:10:15 Diagnosis Intractable migraine with au ra without status migrainosus - Primary [facility] HospitalCqkkhcr6932-08-93 18:10:15 [facility] HospitalAhondes7576-81-87 14:03:18* [facility] HospitalNkrxpyj1558-75-88 14:03:18 [facility] HospitalXptgnoy9688-23-64 14:03:18Upcoming Encounters Health Maintenance Due Date Last Done Comments CT Colonography 1960 Colonoscopy 1960 Colorectal Cancer Screening 1960 FIT-DNA 1961 FIT 1961 FOBT 1961 Lipid Panel 1960 Medicare Annual Wellness (AWV) 1961 Sigmoidoscopy 1961 DTaP/Tdap/Td Vaccines (1 - Tdap) 1980 Pap Smear 1982 Cervical Cancer Screening 12/22/1991 HPV/Cotest 12/22/1991 Mammogram 2001 Zoster Vaccines (1 of 2) 12/22/2011 Respiratory Syncytial Virus (RSV) or >=60 (1 - 1-dose 60+ series) 2021 Influenza Vaccine (#1) 2023 01/02/2016 Pneumococcal Vaccine: Pediat rics (0 to 5 Years) and At-Risk Patients (6 to 64 Years) Aged Out 10/25/2014 No longer eligible b ased on patient's age to complete this topic HIB Vaccines Aged Out No longer eligi ble based on patient's age to complete this topic HPV Vaccines Aged Out No longer eligi ble based on patient's age to complete this topic Hepatitis A Vaccines Aged Out No long er eligible based on patient's age to complete this topic Hepatitis B Vaccines Aged Out No long er eligible based on patient's age to complete this topic IPV Vaccines Aged Out No longer eligi ble based on patient's age to complete this topic Meningococcal Vaccine Aged Out No britney sher eligible based on patient's age to complete this topic Rotavirus Vaccines Aged Out No longer eligible based on patient's age to complete this topic [id number] 14:03:18 [facility] [id number] 14:02:58* [facility] [id number] 14:02:58 [facility] HospitalYcxodwk4408-22-25 14:02:58Upcoming Encounters Health Maintenance Due Date Last Done Comments CT Colonography 1960 Colonoscopy 1961 Colorectal Cancer Screening 1961 FIT-DNA 1961 FIT 1961 FOBT 1961 Lipid Panel 1961 Medicare Annual Wellness (AWV) 1961 Sigmoidoscopy 1961 DTaP/Tdap/Td Vaccines (1 - Tdap) 1980 Pap Smear 1982 Cervical Cancer Screening 12/22/1991 HPV/Cotest 12/22/1991 Mammogram 2001 Zoster Vaccines (1 of 2) 12/22/2011 Respiratory Syncytial Virus (RSV) or >=60 (1 - 1-dose 60+ series) 2021 Influenza Vaccine (#1) 2023 01/02/2016 Pneumococcal Vaccine: Pediat rics (0 to 5 Years) and At-Risk Patients (6 to 64 Years) Aged Out 10/25/2014 No longer eligible b ased on patient's age to complete this topic HIB Vaccines Aged Out No longer eligi ble based on patient's age to complete this topic HPV Vaccines Aged Out No longer eligi ble based on patient's age to complete this topic Hepatitis A Vaccines Aged Out No long er eligible based on patient's age to complete this topic Hepatitis B Vaccines Aged Out No long er eligible based on patient's age to complete this topic IPV Vaccines Aged Out No longer eligi ble based on patient's age to complete this topic Meningococcal Vaccine Aged Out No britney sher eligible based on patient's age to complete this topic Rotavirus Vaccines Aged Out No longer eligible based on patient's age to complete this topic [id number] 14:02:58 [facility] [id number] 13:59:09* [facility] [id number] 13:59:09 [facility] [id number] 13:59:09Upcoming Encounters Health Maintenance Due Date Last Done Comments CT Colonography 1960 Colonoscopy 1961 Colorectal Cancer Screening 1961 FIT-DNA 1961 FIT 1961 FOBT 1961 Lipid Panel 1961 Medicare Annual Wellness (AWV) 1961 Sigmoidoscopy 1961 DTaP/Tdap/Td Vaccines (1 - Tdap) 1980 Pap Smear 1982 Cervical Cancer Screening 12/22/1991 HPV/Cotest 12/22/1991 Mammogram 2001 Zoster Vaccines (1 of 2) 12/22/2011 Respiratory Syncytial Virus (RSV) or >=60 (1 - 1-dose 60+ series) 2021 Influenza Vaccine (#1) 2023 01/02/2016 Pneumococcal Vaccine: Pediat rics (0 to 5 Years) and At-Risk Patients (6 to 64 Years) Aged Out 10/25/2014 No longer eligible b ased on patient's age to complete this topic HIB Vaccines Aged Out No longer eligi ble based on patient's age to complete this topic HPV Vaccines Aged Out No longer eligi ble based on patient's age to complete this topic Hepatitis A Vaccines Aged Out No long er eligible based on patient's age to complete this topic Hepatitis B Vaccines Aged Out No long er eligible based on patient's age to complete this topic IPV Vaccines Aged Out No longer eligi ble based on patient's age to complete this topic Meningococcal Vaccine Aged Out No britney sher eligible based on patient's age to complete this topic Rotavirus Vaccines Aged Out No longer eligible based on patient's age to complete this topic [facility] [id number] 13:59:09 Diagnosis Intractable migraine with au ra without status migrainosus [facility] [id number] 13:59:09 [facility] [id number] 18:36:23* [facility] [id number] 18:36:23 [facility] [id number] 18:36:23* Vee Raymond MD - 08/22/2023 10:15 AM CDT Migraine Patient returns for reevaluation. Headaches have been stable on the daily Qulipta, Ubrelvy as needed is helpful when headaches do occur. Insurance issues with the Qulipta so back for reevaluation. As medication has been helpful we will continue. Allergies as of 08/22/2023 - Reviewed 08/22/2023 Allergen Reaction Noted Levofloxacin 08/22/2023 Penicillins 08/22/2023 has a current medication list which includes the following prescription(s): albuterol hfa, duloxetine, gabapentin, hydromorphone, rosuvastatin, valsartan, qulipta, and ubrelvy. Vitals:08/22/23 1115 BP: 96/72 Pulse: 70 Resp: 16 Temp: 36.2 ?C (97.2 ?F) SpO2: 95% Neurological Exam Mental Status Awake and alert. Speech is normal. Cranial NervesCN II: Visual acuity is normal. CN III, IV, : Extraocular movements intact bilaterally. Pupils equal round and reactive to light bilaterally. CN VII: Full and symmetric facial movement. CN XII: Tongue midline without atrophy or fasciculations. MotorStrength is 5/5 throughout all four extremities. SensoryLight touch is normal in upper and lower extremities. Temperature is normal in upper and lower extremities. Vibration is normal in upper and lower extremities. ReflexesDeep tendon reflexes: Symmetric. GaitCasual gait is normal including stance, stride, and arm swing. Results for orders placed or performed in visit on 01/13/22 Blood Urea Nitrogen and Creatinine Result Value Ref Range BUN 14 7 - 25 mg/dL eGFR 87 > OR = 60 mL/min/1.73m2 Creatinine Lvl 0.78 0.50 - 1.05 mg/dL B/C Ratio SEE NOTE: (CALC) Electrolyte Panel Result Value Ref Range Chloride Lvl 105 98 - 110 mMol/L Sodium Lvl 139 135 - 146 mMol/L CO2 Lvl 29 20 - 32 mMol/L Potassium Lvl 4.6 3.5 - 5.3 mMol/L No MRI head results found for the past 12 months Assessment & PlanIntractable migraine with aura without status migrainosus Orders:Qulipta 60 MG tablet; Take 1 tablet by mouth 1 time each day. Continue the Qulipta and Ubrelvy [facility] [id number] 18:36:23Upcoming Encounters Health Maintenance Due Date Last Done Comments CT Colonography 1961 Colonoscopy 1961 Colorectal Cancer Screening 1961 FIT-DNA 1961 FIT 1961 FOBT 1961 Lipid Panel 1961 Medicare Annual Wellness (AWV) 1961 Sigmoidoscopy 1961 DTaP/Tdap/Td Vaccines (1 - Tdap) 1980 Pap Smear 1982 Cervical Cancer Screening 12/22/1991 HPV/Cotest 12/22/1991 Mammogram 2001 Zoster Vaccines (1 of 2) 12/22/2011 Respiratory Syncytial Virus (RSV) or >=60 (1 - 1-dose 60+ series) 2021 Influenza Vaccine (Season Ended) 2023 01/02/20 16 Pneumococcal Vaccine: Pediat rics (0 to 5 Years) and At-Risk Patients (6 to 64 Years) Aged Out 10/25/2014 No longer eligible b ased on patient's age to complete this topic HIB Vaccines Aged Out No longer eligi ble based on patient's age to complete this topic HPV Vaccines Aged Out No longer eligi ble based on patient's age to complete this topic Hepatitis A Vaccines Aged Out No long er eligible based on patient's age to complete this topic Hepatitis B Vaccines Aged Out No long er eligible based on patient's age to complete this topic IPV Vaccines Aged Out No longer eligi ble based on patient's age to complete this topic Meningococcal Vaccine Aged Out No britney sher eligible based on patient's age to complete this topic Rotavirus Vaccines Aged Out No longer eligible based on patient's age to complete this topic [facility] [id number] 18:36:23 Diagnosis Intractable migraine with au ra without status migrainosus - Primary [facility] [id number] 18:36:23 Caitie Britton
[2024-10-14 12:03] LABS: Absolute Lymphocytes (CBC) 2.1 K/uL (0.7-4.9); Hematocrit 41.8 % (36.0-45.0); Hemoglobin 13.4 g/dL (12.0-15.0); MCH 28.7 pg (27.0-35.0); MCHC 32.0 g/dL (32.0-36.0); MCV 89.7 fL (80-100); MPV 8.5 fL (7.6-11.3); Nucleated RBC Absolute Count 0.0 (0-0); Nucleated Red Blood Cells % 0.1 % (0-0); RBC Red Blood Cell Count 4.66 M/uL (3.86-4.86); White Blood Count 5.00 thou/uL (4.3-10.9)
[2024-10-14 12:21] LABS: ALT/SGPT 15.0 U/L (13-56); AST/SGOT 12.0 U/L (15-37); Albumin 3.0 g/dL (3.4-5.0); Albumin/Globulin Ratio 0.7 (1.1-1.8); Alkaline Phosphatase 78.0 U/L (45-117); Anion Gap 6.7 mEq/L (5.0-15.0); BUN Blood Urea Nitrogen 13.0 mg/dL (7-18); Globulin 4.2 g/dL (2.3-3.5); Glucose Level 125.0 mg/dL (74-106); Lipase 27.0 U/L (13-75); Potassium 4.7 mEq/L (3.5-5.1)
[2024-10-14] MEDS ORDERED: MORPHINE 4 MG/ML SYR ONE (12:21)
[2024-10-14] MEDS ORDERED: NA CHLORIDE 0.9% 1,000 ML ONE (12:22)
[2024-10-14] MEDS ORDERED: ONDANSETRON 4 MG/2 ML VIAL ONE (12:22)
--- NOTE | 2024-10-14 12:22 | RAD REPORT ---
Stone Protocol CLINICAL INDICATION: Female, 63 years old.FLANK PAIN TECHNIQUE: CT abdomen and pelvis was performed, without IV contrast, as per department protocol using a CT stone protocol. Axial, sagittal and coronal reconstructions were obtained. One or more of the following dose reduction techniques were used: Automated exposure control, adjustment of the mA and/o r kV according to the patient size, and/or iterative reconstruction. Unless otherwise specified, incidental findings do not require dedicated imaging follow-up. [id number]. IV CONTRAST: Not administered. COMPARISON: 02/06/2018 FINDINGS: The lack of intravenous contrast limits the sensitivity of this exam for evaluation of solid visceral organs, vascular structures, and retroperitoneum. LOWER CHEST: No acute process identified.No significant pericardial effusion. UPPER GI: No significant abnormality. LIVER: No significant focal abnormality. GALLBLADDER/BILE DUCTS: Cholecystectomy. Mild extra-hepatic biliary ductal dilatation is likely relat ed to the post-cholecystectomy state. Consider correlating with LFT's.? PANCREAS: No mass, ductal dilation, or holly-pancreatic fluid. SPLEEN: Unremarkable. ADRENALS: No adrenal masses. KIDNEYS AND URETERS: No hydronephrosis.Limited evaluation for renal lesions in the absence of IV cont rast.No renal calculi.No ureteral calculi. ABDOMINAL AORTA AND OTHER VESSELS: Mild atherosclerotic changes. PERITONEUM: No abnormal free fluid. No free air. LYMPH NODES: No pathologic lymphadenopathy. ABDOMINAL WALL: Unremarkable SMALL BOWEL/COLON: Possible circumferential thickening of the ascending colon versus underdistention. No bowel obstruction is seen.Nonvisualized appendix but no secondary signs of acute appendicitis. URINARY BLADDER: Underdistended but grossly unremarkable. REPRODUCTIVE ORGANS: No pathologic process. MUSCULOSKELETAL: Multilevel degenerative changes in the spine. No acute fracture. Spinal stimulator. Multiple left-sided rib fractures. ADDITIONAL FINDINGS: None. IMPRESSION: No urinary tract calculi. A short segment of the ascending colon appears thickened which could be fro m underdistention, colitis, or neoplasm. Consider colonoscopy for further evaluation, particularly if the patient has not had screening.
--- NOTE | 2024-10-14 13:22 | ER ---
Nurse's Notes [facility] Name: Abida Garza Age: 63 yrs Sex: Female : 1960 Arrival Date: 10/14/2024 Time: 11:36 Bed 12 Private MD: Diagnosis: Other specified noninfective gastroenteritis and colitis Presentation: 10/14 11:44 Chief complaint: Patient states: right flank pain X 2 weeks, was supposed to have cT iw done this week but the pain is too bad. Coronavirus screen: At this time, the client does not indicate any symptoms associated with coronavirus-19. Ebola Screen: No symptoms or risks identified at this time. Initial Sepsis Screen: Does the patient meet any 2 criteria? No. Patient's initial sepsis screen is negative. Does the patient have a suspected source of infection? No. Patient's initial sepsis screen is negative. Risk Assessment: Do you want to hurt yourself or someone else? Patient reports no desire to harm self or others. Onset of symptoms was September 30, 2024. 11:44 Method Of Arrival: Wheelchair iw 11:44 Acuity: BALDO 3 iw Historical: - Allergies: 11:45 Levaquin; iw 11:45 PENICILLINS; iw - PMHx: 11:45 Depression; Hypertension; Sleep Apnea; Asthma; chronic back pain; COPD; High iw Cholesterol; - Immunization history:: Adult Immunizations unknown. - Infectious Disease History:: Denies. - Social history:: Smoking status: unknown. Screenin:03 [facility] ED Fall Risk Assessment (Adult) History of falling in the last 3 months, iw including since admission No falls in past 3 months (0 pts) Confusion or Disorientation No (0 pts) Intoxicated or Sedated No (0 pts) Impaired Gait No (0 pts) Mobility Assist Device Used No (0 pt) Altered Elimination No (0 pt) Score/Fall Risk Level 0 - 2 = Low Risk Oriented to surroundings, Maintained a safe environment. Abuse screen: Denies threats or abuse. Nutritional screening: No deficits noted. Tuberculosis screening: No symptoms or risk factors identified. Assessment: 11:54 General: Appears in no apparent distress. Behavior is calm, cooperative. Pain: iw Complains of pain in right mid back and right low back. Neuro: Level of Consciousness is awake, alert, obeys commands, Oriented to person, place, time, situation, Moves all extremities. Full function. Cardiovascular: Patient's skin is warm and dry. Respiratory: Respiratory effort is even, unlabored, Respiratory pattern is regular, symmetrical. GI: Abd is soft. Derm: Skin is intact, is healthy with good turgor. Musculoskeletal: Range of motion: intact in all extremities. 13:01 Reassessment: Patient appears in no apparent distress at this time. pt up to bathroom. iw 13:27 Reassessment: Patient appears in no apparent distress at this time. Patient and/or kj2 family updated on plan of care and expected duration. Pain level reassessed. Patient is alert, oriented x 3, equal unlabored respirations, skin warm/dry/pink. 13:28 GI: Bowel sounds present X 4 quads. kj2 Vital Signs: 11:44 BP 142 / 78; Pulse 71; Resp 19; Pulse Ox 97% on R/A; Weight 109.77 kg; Height 5 ft. 3 iw in. ; Pain 9/10; 13:27 BP 138 / 72; Pulse 70; Resp 18; Temp 98; Pulse Ox 100% on R/A; kj2 11:44 Body Mass Index 42.87 (109.77 kg, 160.02 cm) iw 11:44 Pain Scale: Adult iw ED Course: 11:39 Patient arrived in ED. mr 11:39 Jabari Sweeney FNP-C is [facility]. dr5 11:45 Triage completed. iw 11:46 Arm band placed on. iw 11:57 Initial lab(s) drawn, by me, sent to lab. Inserted saline lock: 20 gauge in left iw antecubital area, using aseptic technique. Blood collected. Flushed with 10 mL NS. 12:[address] In Process Unspecified. EDMS 12:27 Ryanne Sullivan, RN is Primary Nurse. iw 13:17 Patient has correct armband on for positive identification. Bed in low position. Call kj2 light in reach. Adult w/ patient. Provided Education on: call light. 13:21 Shaun Dickson DO is Attending Physician. dr5 13:27 No provider procedures requiring assistance completed. IV discontinued, intact, kj2 bleeding controlled, No redness/swelling at site. Pressure dressing applied. Administered Medications: 12:36 Drug: Ondansetron IVP 4 mg IVP once; over 2 minutes Route: IVP; Site: left antecubital; iw 13:32 Follow up: Response: No adverse reaction kj2 12:36 Drug: morphine IVP or IV 4 mg IVP once over 4 mins Route: IVP; Infused Over: 4 mins; iw Site: left antecubital; 13:32 Follow up: Response: No adverse reaction kj2 12:36 Drug: NS 0.9% IV 1000 ml IV at 1 bolus Per protocol; to be given as a bolus over 60 iw minutes Route: IV; Rate: 1 bolus; Site: left antecubital; 13:32 Follow up: IV Status: Completed infusion; IV Intake: 1000ml kj2 Medication: 13:17 VIS not applicable for this client. kj2 Intake: 13:32 IV: 1000ml; Total: 1000ml. kj2 Outcome: 13:21 Discharge ordered by MD. dr5 13:28 Discharged to home ambulatory, with family, kj2 13:28 Condition: stable 13:28 Discharge instructions given to patient, family, Instructed on discharge instructions, follow up and referral plans. Demonstrated understanding of instructions, follow-up care, 13:32 Patient left the ED. kj2 Signatures: Dispatcher [employer] EDMS RobertBethany, Reg Reg mr Ryanne Sullivan, RN RN iw Cande Rodgers, TITA RN kj2 Jabari Sweeney, HIGH LEAD YARDER-C HIGH LEAD YARDER-Cdr5 Corrections: (The following items were deleted from the chart) 11:46 11:44 Pulse 71bpm; Resp 19bpm; Pain 9/10, Adult; iw iw 11:46 11:44 BP 142 / 78; Pulse 71bpm; Resp 19bpm; Pulse Ox 97% RA; Pain 9/10, Adult; iw iw
--- NOTE | 2024-10-14 13:22 | EDPHYS ---
Physician Documentation [facility] Name: Abida Garza Age: 63 yrs Sex: Female : 1960 Arrival Date: 10/14/2024 Time: 11:36 Bed 12 Private MD: ED Physician Shaun Dickson HPI: 10/14 11:48 This 63 yrs old Female presents to ER via Wheelchair with complaints of dr5 Abdominal Pain, Back Pain. 11:48 Onset: The symptoms/episode began/occurred 2.5 week(s) ago. The patient has been dr5 recently seen by a physician: the patient's primary care provider. Patient is a 61-year-old female with history depression, hypertension, sleep apnea, asthma, chronic back pain, COPD, hyperlipidemia coming in with right flank pain has been going on for the past 2 and half weeks. Patient reports that she saw her primary care doctor last week who ordered a CT scan for her on and she is not able to wait for it due to pain. Patient denies dysuria, nausea, vomiting, constipation, or diarrhea. Patient reports that he took her morning meds this morning prior to arrival that included blood pressure medications, hydromorphone, and gabapentin as well as muscle relaxants. Patient reports 1 episode of hematuria.. 11:49 Patient reports the pain is intermittent in which at times it relieves completely and dr5 times that the pain is 10 out of 10.. Historical: - Allergies: 11:45 Levaquin; iw 11:45 PENICILLINS; iw - PMHx: 11:45 Depression; Hypertension; Sleep Apnea; Asthma; chronic back pain; COPD; High iw Cholesterol; - Immunization history:: Adult Immunizations unknown. - Infectious Disease History:: Denies. - Social history:: Smoking status: unknown. ROS: 11:49 Constitutional: as per hpi dr5 Exam: 11:49 Constitutional: This is a well developed, well nourished patient who is awake, alert, dr5 and in no acute distress. Head/Face: Normocephalic, atraumatic. Eyes: Pupils equal round and reactive to light, extra-ocular motions intact. Lids and lashes normal. Conjunctiva and sclera are non-icteric and not injected. Cornea within normal limits. Periorbital areas with no swelling, redness, or edema. Neck: Trachea midline, no thyromegaly or masses palpated, and no cervical lymphadenopathy. Supple, full range of motion without nuchal rigidity, or vertebral point tenderness. No Meningismus. Chest/axilla: Normal chest wall appearance and motion. Nontender with no deformity. No lesions are appreciated. Cardiovascular: Regular rate and rhythm with a normal S1 and S2. Normal PMI, no JVD. No pulse deficits. Respiratory: Lungs have equal breath sounds bilaterally, clear to auscultation. No rales, rhonchi or wheezes noted. No increased work of breathing, no retractions or nasal flaring. Abdomen/GI: Soft, non-tender, non-distended Back: No spinal tenderness. No costovertebral tenderness on left side - moderate CVA tenderness to right side. Full range of motion. Skin: Warm, dry with normal turgor. Normal color with no rashes, no lesions, and no evidence of cellulitis. MS/ Extremity: Pulses equal, no cyanosis. Neurovascular intact. Full, normal range of motion. Neuro: Awake and alert, GCS 15, oriented to person, place, time, and situation. Cranial nerves II-XII grossly intact. Motor strength 5/5 in all extremities. Sensory grossly intact. Cerebellar exam normal. Normal gait. Vital Signs: 11:44 BP 142 / 78; Pulse 71; Resp 19; Pulse Ox 97% on R/A; Weight 109.77 kg; Height 5 ft. 3 iw in. ; Pain 9/10; 13:27 BP 138 / 72; Pulse 70; Resp 18; Temp 98; Pulse Ox 100% on R/A; kj2 11:44 Body Mass Index 42.87 (109.77 kg, 160.02 cm) iw 11:44 Pain Scale: Adult iw MDM: 11:39 Medical Screening Exam initiated dr5 18:11 Differential diagnosis: diverticulitis, gastritis, gastroesophageal reflux disease, dr5 urinary tract infection, Colitis. Data reviewed: vital signs, nurses notes, lab test result(s), amylase and lipase, CBC, white blood cell count, hemoglobin, hematocrit, platelets, electrolytes, sodium, potassium, chloride, serum bicarbonate, BUN, creatinine, serum glucose, urinalysis, radiologic studies, CT scan. Consideration of Admission/Observation Escalation of care including admission/observation considered. Admission considered patient found to have diverticulitis with perforation. I considered the following discharge prescriptions or medication management in the emergency department I discussed and recommended Over The Counter medications, Medications were administered in the Emergency Department. See MAR. Care significantly affected by the following chronic conditions: Depression, hypertension, sleep apnea, asthma, back pain, hyperlipidemia, COPD. Care significantly affected by the following Social Determinants of Health: Poor access to healthcare and/or lack of insurance, Poor access to transportation, Problems related to employment. Counseling: I had a detailed discussion with the patient and/or guardian regarding the historical points, exam findings, and any diagnostic results supporting the discharge/admit diagnosis, the presence of at least one elevated blood pressure reading (>120/80) during this emergency department visit, lab results, radiology results, the need for outpatient follow up, for definitive care, a family practitioner, to return to the emergency department if symptoms worsen or persist or if there are any questions or concerns that arise at home. Medication response: morphine relieved the patient's pain. Symptoms have resolved, Zofran relieved the patient's nausea. Response to treatment: the patient's symptoms have resolved after treatment, the patient's condition has returned to base line. Special discussion: I have referred the patient to see his PCP for further evaluation of high blood pressure. I discussed with the patient/guardian in detail that at this point there is no indication for admission to the hospital. It is understood, however, that if the symptoms persist or worsen the patient needs to return immediately for re-evaluation. Based on the history and exam findings, there is no indication for further emergent testing or inpatient evaluation. I discussed with the patient/guardian the need to see the floor space allocator for further evaluation of the symptoms. I discussed with the patient/guardian the need to see the primary care provider for further evaluation of the symptoms. ED course: Will cover patient for colitis to prevent infection. Antibiotics chosen due to allergies. Patient reports her pain is much better. Strict ER precautions given. Recommended high-fiber diet. All questions were.. 10/14 11:48 Order name: CBC with Diff; Complete Time: 12:34 10/14 11:48 Order name: CMP; Complete Time: 12:34 10/14 11:48 Order name: Lipase; Complete Time: 12:34 10/14 11:48 Order name: Stone Protocol CT; Complete Time: 12:34 10/14 11:48 Order name: IV Saline Lock; Complete Time: 11:52 dr5 10/14 11:48 Order name: Labs collected and sent; Complete Time: 11:52 dr5 Administered Medications: 12:36 Drug: Ondansetron IVP 4 mg IVP once; over 2 minutes Route: IVP; Site: left antecubital; iw 13:32 Follow up: Response: No adverse reaction kj2 12:36 Drug: morphine IVP or IV 4 mg IVP once over 4 mins Route: IVP; Infused Over: 4 mins; iw Site: left antecubital; 13:32 Follow up: Response: No adverse reaction kj2 12:36 Drug: NS 0.9% IV 1000 ml IV at 1 bolus Per protocol; to be given as a bolus over 60 iw minutes Route: IV; Rate: 1 bolus; Site: left antecubital; 13:32 Follow up: IV Status: Completed infusion; IV Intake: 1000ml kj2 Disposition: 20:00 I was immediately available on-site in the Emergency Department for consultation in the ms3 care of the patient. Disposition Summary: 10/14/24 13:21 Discharge Ordered Notes: Location: Home dr5 Condition: Stable dr5 Diagnosis - Other specified noninfective gastroenteritis and colitis dr5 Followup: dr5 - With: Emergency Department - When: As needed - Reason: Worsening of condition Followup: dr5 - With: Private Physician - When: 1 - 2 days - Reason: Recheck today's complaints, Continuance of care, Re-evaluation by your physician Discharge Instructions: - Discharge Summary Sheet dr5 - Colitis dr5 Forms: - Medication Reconciliation Form dr5 - Antibiotic Education dr5 - Prescription Opioid Use dr5 - Patient Portal Instructions dr5 - Leadership Thank You Letter dr5 Prescriptions: - Flagyl 500 mg Oral Tablet - take 1 tablet ORAL route every 12 hours for 7 days; 14 tablet; Refills: 0, dr5 Product Selection Permitted - Zithromax Z-Yaw 250 mg Oral Tablet - take 1 tablet ORAL route as directed for 5 days Day 1 - take two (2) tablets dr5 one time. Day 2, 3, 4 , 5 take one (1) tablet once daily.; 6 tablet; Refills: 0, Product Selection Permitted Signatures: Dispatcher [employer] Ryanne Polanco RN RN iw Shaun Dickson DO DO ms3 Cande Rodgers RN RN kj2 Sweeney, Jabari, FILM BOOKER-C FILM BOOKER-Cdr5
[2024-10-14 18:00] VITALS: BP 138/72; TEMP 98; O2SAT 100
== END 2024-10-14 13:32 | disposition home or self-care (01) ==
LOC: ER 11:36
DX: K52.89 Other specified noninfective gastroenteritis and colitis (principal)
CPT/HCPCS: 96361; 85025; 36415; 83690; 80053; 76377; 74176; 96375; 96374; 99284; J2405; J7030